=== PATIENT | female | born 1945 | race Caucasian/White ===

== ENCOUNTER → 2020-01-02 13:00 | Outpatient (CLI) | payer MEDICARE, SELFPAY ==
--- NOTE | ~2020-01-02 | XR_ITS ---
EXAMINATION: XR chest 2V EXAM DATE: 01/02/2020 13:23 INDICATION: Chronic interstitial lung disease. TECHNIQUE: Frontal and lateral projections of the chest obtained and reviewed. Comparison is made to prior examination from 11/23/2010. FINDINGS: Mildly prominent reticulation peripherally, probably chronic interstitial lung disease. No confluent consolidation. There are no pleural effusions. The cardiomediastinal silhouette is within normal limits. There is no pneumothorax suspected. Moderate lumbar scoliosis. IMPRESSION: 1. No acute cardiopulmonary findings. 2. Probable mild pulmonary fibrosis. 3. Lumbar scoliosis. Reviewed, dictated and finalized at location A.
== END ==
PROVIDERS: PCP Family Medicine Adolescent Medicine; Visit Provider Family Medicine Adolescent Medicine
DX: J84.9 Interstitial pulmonary disease, unspecified (principal); M41.9 Scoliosis, unspecified
CPT/HCPCS: 71046

== ENCOUNTER 2020-11-27 11:40 | Outpatient (NON) | payer MEDICARE, SELFPAY ==
[2020-11-28 00:37] LABS: SARS-CoV-2 RNA PCR Negative
== END 2020-11-27 11:41 ==
LOC: ANHCOVIDDT 11:41
PROVIDERS: PCP Family Medicine Adolescent Medicine; Visit Provider Family Medicine Adolescent Medicine
DX: Z20.822 Contact with and (suspected) exposure to COVID-19 (principal); R50.9 Fever, unspecified; M79.10 Myalgia, unspecified site
CPT/HCPCS: C9803; U0003; U0005

== ENCOUNTER 2021-08-14 11:20 | Outpatient (CLI) | payer MEDICARE, SELFPAY ==
[2021-08-14 11:44] LABS: Basophils Absolute Auto 0.1 K/mm3 (0.0-0.1); Eosinophils Absolute Auto 0.4 K/mm3 (0-0.3); Eosinophils Percent Auto 4.6 % (0-4.4); Hematocrit 34.6 % (37.0-47.0); Hemoglobin 10.3 g/dL (12.0-15.0); Immature Granulocyte Absolute 0.04 K/mm3 (0.00-0.031); Immature Granulocyte Percent A 0.4 % (0-0.5); Immature Reticulocyte Fraction 11.3 % (3.0-15.9); Lymphocytes Absolute Auto 1.19 K/mm3 (0.9-3.2); Lymphocytes Percent Auto 13.2 % (18.3-44.2); Mean Corpuscular HGB Conc 29.8 g/dl (32-36); Mean Corpuscular Hemoglobin 27.5 pg (26-34); Mean Corpuscular Volume 92.3 fl (80-100); Mean Platelet Volume 9.4 fl (7.4-10.4); Monocytes Absolute Auto 0.9 K/mm3 (0.1-0.6); Monocytes Percent Auto 9.8 % (2.6-8.5); Neutrophils Absolute Auto 6.4 K/mm3 (1.3-6.7); Platelet Count Result 312 k/mm3 (150-375); Red Blood Count 3.75 M/mm3 (4.2-5.4); Red Cell Distribution Width 15.3 % (11.5-14.5); Reticulocyte Hemoglobin Conten 35.4 pg (28.2-35.7); Reticulocyte Percent 2.97 % (0.7-4.3); Reticulocytes Absolute 0.11 B/L (32.2-175.7)
[2021-08-14 11:51] LABS: Hypochromasia 1+ (NORMAL); Platelet Estimate Adequate (Adequate)
[2021-08-14 12:28] LABS: Alanine Aminotransferase 12 U/L (4-35); Albumin Level 4.1 g/dL (3.5-5.1); Alkaline Phosphatase 75 U/L (38-126); Anion Gap 9 mmol/L (8-16); Aspartate Amino Transferase 25 U/L (14-36); Bilirubin,Total 0.2 mg/dL (0.2-1.3); Blood Urea Nitrogen 26 mg/dL (7-17); Calcium 9.6 mg/dL (8.4-10.2); Carbon Dioxide 28 mmol/L (22-30); Chloride 105 mmol/L (98-107); Estimated Glomerular Filt Rate > 60; Glucose 98 mg/dL (65-110); Potassium 4.6 mmol/L (3.4-5.0); Sodium 142 mmol/L (137-145)
[2021-08-14 13:47] LABS: Folic Acid > 20.0 ng/mL (2.76->20)
[2021-08-14 14:04] LABS: Iron 119 ug/dL (37-170); Percent Iron Saturation 33 % (20-50)
== END 2021-08-14 11:21 | disposition home or self-care (01) ==
LOC: ANHLAB 11:25
PROVIDERS: PCP Family Medicine Adolescent Medicine; Visit Provider Internal Medicine Hematology & Oncology
DX: D64.9 Anemia, unspecified (principal)
CPT/HCPCS: 36415; 80053; 82607; 82728; 82746; 83540; 83550; 85025; 85046

== ENCOUNTER 2021-08-19 09:44 | Outpatient (CLI) | payer MEDICARE, SELFPAY ==
[2021-08-19 12:37] LABS: IFOB Positive Control Positive; Immunochemical Fecal Occult Bl Positive (N)
== END 2021-08-19 09:45 | disposition home or self-care (01) ==
LOC: ANHLAB 09:46
PROVIDERS: PCP Family Medicine Adolescent Medicine; Visit Provider Internal Medicine Hematology & Oncology
DX: D64.9 Anemia, unspecified (principal)
CPT/HCPCS: 82274

== ENCOUNTER 2021-10-28 12:36 | Outpatient (CLI) | payer MEDICARE, SELFPAY ==
[2021-10-28 12:57] LABS: Hematocrit 37.2 % (37.0-47.0); Hemoglobin 11.2 g/dL (12.0-15.0); Mean Corpuscular HGB Conc 30.1 g/dl (32-36); Mean Corpuscular Hemoglobin 28.9 pg (26-34); Mean Corpuscular Volume 96.1 fl (80-100); Mean Platelet Volume 8.9 fl (7.4-10.4); Platelet Count Result 318 k/mm3 (150-375); Red Blood Count 3.87 M/mm3 (4.2-5.4); Red Cell Distribution Width 14.6 % (11.5-14.5); White Blood Count 8.5 K/mm3 (4.5-10.0)
[2021-10-28 15:09] LABS: Iron 110 ug/dL (37-170)
[2021-10-28 15:18] LABS: Percent Iron Saturation 30 % (20-50)
[2021-10-28 15:44] LABS: Ferritin 9.48 ng/mL (11.1-264)
[2021-10-28 16:21] LABS: Folic Acid > 20.0 ng/mL (2.76->20); Vitamin B12 > 1000.0 pg/mL (239-931)
== END 2021-10-28 12:37 | disposition home or self-care (01) ==
PROVIDERS: PCP Family Medicine Adolescent Medicine; Visit Provider Internal Medicine Hematology & Oncology
DX: D64.9 Anemia, unspecified (principal)
CPT/HCPCS: 36415; 82607; 82728; 82746; 83540; 83550; 85027

== ENCOUNTER 2022-02-10 00:07 | Day surgery (SDC) | payer MEDICARE, SELFPAY ==
[2022-01-27 10:23] VITALS: BMI 22.8
[2022-02-10 06:55] VITALS: BP 178/86; PULSE 110; RESP 20; TEMP 36.9; O2SAT 98
[2022-02-10] MEDS: LACTATED RINGERS 1,000 ML 150 ML IV CONT (07:16)
[2022-02-10 07:17] LABS: Glucose Point of Care 134 mg/dl (65-105)
--- NOTE | 2022-02-10 07:18 | WPDANESEPPF ---
Anes - Initial Pre Proc Eval Procedure: Operation Date: 02/10/22 08:00 Proposed Procedures p Esophagogastroduodenoscopy With Capsule Deployment - Ja Alcala MD s [facility] Capsule Endoscopy - Ja Alcala MD Date/Time: 02/10/22 07:18 Surgeon: Ja Alcala MD Pre Op Diagnosis: BRIDGER Patient Data Age: 77 Gender: F Height: 1.55 m Weight: 55.1 kg Last Vital Signs Temp 36.9 C 02/10/22 06:55 Pulse 110 H 02/10/22 06:55 Resp 20 02/10/22 06:55 BP 178/86 H 02/10/22 06:55 Pulse Ox 98 02/10/22 06:55 Allergies Allergy/AdvReac Type Severity Reaction Status Date / Time No Known Allergies Allergy Verified 02/10/22 06:54 Home Medications Medication Instructions Recorded Confirmed Type Vitamin C 1 tablet PO DAILY 11/15/21 01/27/22 History aspirin 81 mg PO DAILY 11/15/21 01/27/22 History benazepril 20 mg PO DAILY 11/15/21 01/27/22 History calcium 600 mg PO DAILY 11/15/21 01/27/22 History calcium polycarbophil [Fiber-Lax] 1,250 mg PO DAILY PRN 11/15/21 01/27/22 History ferrous gluconate 324 mg PO BID 11/15/21 01/27/22 History magnesium 250 mg PO DAILY 11/15/21 01/27/22 History metformin 500 mg PO BID 11/15/21 01/27/22 History multivitamin 1 cap PO DAILY 11/15/21 01/27/22 History omega-3 fatty acids [Fish Oil] 500 mg PO DAILY 11/15/21 01/27/22 History potassium 99 mg PO DAILY 11/15/21 01/27/22 History vitamin S25-zioeo acid 1 cap PO EVERY OTHER DAY 11/15/21 01/27/22 History pantoprazole 40 mg tablet,delayed 40 mg PO QAM #90 tablet 11/27/21 01/27/22 Rx release amlodipine 5 mg tablet 5 mg PO DAILY 12/18/21 01/27/22 History digoxin 125 mcg (0.125 mg) tablet 125 mcg PO DAILY #90 tablet 12/18/21 01/27/22 Rx blood sugar diagnostic #100 ea 01/08/22 Rx meloxicam 15 mg tablet 15 mg PO DAILY #90 tablet 01/08/22 01/27/22 Rx fluticasone propionate [Allergy 2 spray INTRANASAL DAILY PRN 01/27/22 01/27/22 History Relief (fluticasone)] atorvastatin 40 mg tablet 40 mg PO DAILY #90 tablet 02/04/22 Rx Laboratory Tests 02/10/22 07:06 POC Capillary Glucose 134 mg/dl H mg/dl (65-105) Patient hx anesthesia problems: none Family hx anesthesia problems: none Results Review: All pre-operative results and documents have been reviewed as part of the pre-operative evaluation. [facility] Past Medical History Medical History Diabetes GERD (gastroesophageal reflux disease) HLD (hyperlipidemia) HTN (hypertension) Osteoarthritis Social History Social History Smoking status: Never smoker Alcohol intake: never Substance use: never Living arrangements: alone Spiritual care concerns: No Anes - Eval Final PreProcedure Day of Procedure 02/10/22 07:18 Patient weight: normal Heart: regular rate and rhythm Lungs: clear to auscultation Airway: Mallampati scale class II Neurological: alert and oriented Last oral intake: >/= 8 hours ASA classification: III Emergent: no Anesthetic plan: proceed Anesthesia type and monitoring: general GIVS and standard monitoring Results Review: All pre-operative results and documents have been reviewed as part of the pre-operative evaluation. Informed Consent: The patient's anesthetic plan and its attendant risks and benefits were discussed with the patient/family/POA. Questions were solicited and answers provided to the satisfaction of the patient/family/POA.
--- NOTE | 2022-02-10 07:49 | PM.HPGS ---
History of Present Illness History of Present Illness Consent: Risks, benefits, and alternatives have been discussed and questions answered. Patient agrees to proceed with procedure. Chief complaint: BRIDGER Narrative: Evelyn Hatfield is a 77 year old female with bridger on iron, using protonix. Denies overt gib. Had colonoscopy 2019. Review of Systems Constitutional: Constitutional: Denies headache(s) and Denies weakness Eyes: Eyes: Denies blurry vision ENT: Reports Normal hearing present, Denies headache(s) and Denies neck pain Cardiovascular: Cardiovascular: Denies chest pain and Denies dyspnea Respiratory: Respiratory: Denies dyspnea Gastrointestinal: Gastrointestinal: Reports no additional gastrointestinal complaints Genitourinary: Genitourinary: Denies dysuria Musculoskeletal: Musculoskeletal: Denies neck pain Integumentary/Breasts: Skin/Breast: Denies dry skin Neurologic: Reports Normal hearing present, Denies headache(s) and Denies weakness Psychiatric: Psychiatric: Denies anxiety Endocrine: Endocrine: Denies change in body appearance Hematologic/Lymphatic: Hematologic/Lymphatic: Denies easy bleeding Allergic/Immunologic: Allergic/Immunologic: Denies urticaria PMF Past Medical History Medical History Diabetes GERD (gastroesophageal reflux disease) HLD (hyperlipidemia) HTN (hypertension) Osteoarthritis Social History Social History Smoking status: Never smoker Alcohol intake: never Substance use: never Living arrangements: alone Spiritual care concerns: No Meds Home Medications and Allergies Home Medications Medication Instructions Recorded Confirmed Type Vitamin C 1 tablet PO DAILY 11/15/21 01/27/22 History aspirin 81 mg PO DAILY 11/15/21 01/27/22 History benazepril 20 mg PO DAILY 11/15/21 01/27/22 History calcium 600 mg PO DAILY 11/15/21 01/27/22 History calcium polycarbophil [Fiber-Lax] 1,250 mg PO DAILY PRN 11/15/21 01/27/22 History ferrous gluconate 324 mg PO BID 11/15/21 01/27/22 History magnesium 250 mg PO DAILY 11/15/21 01/27/22 History metformin 500 mg PO BID 11/15/21 01/27/22 History multivitamin 1 cap PO DAILY 11/15/21 01/27/22 History omega-3 fatty acids [Fish Oil] 500 mg PO DAILY 11/15/21 01/27/22 History potassium 99 mg PO DAILY 11/15/21 01/27/22 History vitamin H29-clfgq acid 1 cap PO EVERY OTHER DAY 11/15/21 01/27/22 History pantoprazole 40 mg tablet,delayed 40 mg PO QAM #90 tablet 11/27/21 01/27/22 Rx release amlodipine 5 mg tablet 5 mg PO DAILY 12/18/21 01/27/22 History digoxin 125 mcg (0.125 mg) tablet 125 mcg PO DAILY #90 tablet 12/18/21 01/27/22 Rx blood sugar diagnostic #100 ea 01/08/22 Rx meloxicam 15 mg tablet 15 mg PO DAILY #90 tablet 01/08/22 01/27/22 Rx fluticasone propionate [Allergy 2 spray INTRANASAL DAILY PRN 01/27/22 01/27/22 History Relief (fluticasone)] atorvastatin 40 mg tablet 40 mg PO DAILY #90 tablet 02/04/22 Rx Allergies Allergy/AdvReac Type Severity Reaction Status Date / Time No Known Allergies Allergy Verified 02/10/22 06:54 Vital Signs Vital Signs - 24 hr 02/10/22 06:55 Temperature 98.4 F Pulse Rate 110 H Respiratory Rate 20 Blood Pressure 178/86 H Pulse Oximetry 98 Exam Const: General: comfortable and no acute distress HENMT: General nose exam: Normal nares present Eyes: General: appearance normal, both eyes and all related structures Neck: Neck: no JVD Resp: Auscultation: clear to auscultation bilaterally Cardio: Rate: regular rate Rhythm: regular rhythm GI: Inspection: non-distended GI Palp: Yes Soft to palpation Skin: General skin exam: normal color Neuro: General: gait normal Speech: normal speech Extrem: General: normal to inspection Psych: Mental Status: mental status grossly normal Assessment and Plan Assessment and plan (1) BRIDGER (iron deficiency anemia): Code(s)
[2022-02-10 08:06] VITALS: BP 91/46; PULSE 87; RESP 22; O2SAT 98
[2022-02-10 08:16] VITALS: BP 105/60; PULSE 83; RESP 14; O2SAT 97
[2022-02-10 08:26] VITALS: BP 142/72; PULSE 83; RESP 14; O2SAT 100
--- NOTE | 2022-02-10 15:05 | SUR.OPER ---
Patient returned to the GI Lab at 1500 for recorder box removal. Patient voiced no complaints. States they have understanding of instructions. Patient left ambulatory.
== END 2022-02-10 08:57 | disposition home or self-care (01) ==
PROVIDERS: PCP Family Medicine Adolescent Medicine; Visit Provider Internal Medicine Gastroenterology
PROC: 0DJ08ZZ Inspection of Upper Intestinal Tract, Via Natural or Artificial Opening Endoscopic (ICD-10-PCS; CPT 43235; principal; 2022-02-10 08:00)
PROC: 0DJ07ZZ Inspection of Upper Intestinal Tract, Via Natural or Artificial Opening (ICD-10-PCS; CPT 91110; 2022-02-10 08:00)
DX: D50.9 Iron deficiency anemia, unspecified (principal); K44.9 Diaphragmatic hernia without obstruction or gangrene; K22.2 Esophageal obstruction; K29.50 Unspecified chronic gastritis without bleeding; K21.9 Gastro-esophageal reflux disease without esophagitis; I10 Essential (primary) hypertension; E78.5 Hyperlipidemia, unspecified; E11.9 Type 2 diabetes mellitus without complications; Z79.84 Long term (current) use of oral hypoglycemic drugs
CPT/HCPCS: 43239; 43249; 82948; 88305; C1726; J2704; J7120

== ENCOUNTER 2022-02-13 13:29 | Outpatient (CLI) | payer MEDICARE, SELFPAY ==
--- NOTE | ~2022-02-13 | CT_ITS ---
EXAMINATION: CT abdomen pelvis wo/w con DATE: 02/13/2022 14:15 INDICATION: Gross hematuria TECHNIQUE: Computed tomography (CT) of the abdomen and pelvis was performed without intravenous contr ast. CT of the abdomen and pelvis was then performed with a total of 130 mL Omnipaque 350 intravenous contrast using a double-bolus technique for simultaneous opacification of the renal parenchyma and r enal collecting system. The dose-length product (DLP) was 582.02 mGy-cm. Automated exposure control a nd iterative reconstruction technique were employed. COMPARISON: 10/28/2014 FINDINGS: There are subpleural reticular and groundglass opacities of the visualized lung bases with slight interval worsening since the comparison examination. The heart size is normal. There is a smal l sliding hiatal hernia. The gallbladder is surgically absent. There is mild enlargement of the commo n bile duct and central intrahepatic ducts which is likely due to post cholecystectomy state. The sebas er, spleen, pancreas, and adrenal glands are normal. There is an 11 mm nonobstructing stone in a lowe r pole calyx of the right kidney. Additional stones measuring 11 mm and 9 mm are present in the lower pole of the right kidney. There is a 4 mm nonobstructing stone of the left kidney. There are no ston es in the ureters or bladder. There is no hydronephrosis or hydroureter. An extrarenal pelvis is note d on the right. Hypoattenuating lesions in the kidneys, measuring up to 5 mm on the left, are too sma ll to characterize but likely represent cysts. There is a linear filling defect in the right renal pe lvis measuring approximately 10 mm x 3 mm. Small diverticula are noted in the right posterolateral bl adder wall. No pathologically enlarged abdominal or pelvic lymph nodes are identified. There is calci fied atherosclerosis of the aorta and many of the other arteries. There is no free intraperitoneal ga s or evidence of bowel obstruction. There are surgical clips in the right groin region. A metallic de nsity of unclear etiology projects in the small bowel in the right pelvis. On the charge entry image, the ob ject has a configuration suggestive of an earring. There is severe lumbar spondylosis. IMPRESSION: 1. Bilateral nonobstructing nephrolithiasis. A linear filling defect in the right renal pelvis is see n which may reflect a small thrombus. 2. Metallic density in the small bowel of the right lower quadrant of unclear etiology. Object has an appearance suggestive of an earring on the charge entry image. Clinically correlate for any history of acci dental ingestion. Reviewed, dictated and finalized at location F. IMPRESSION: 1. Bilateral nonobstructing nephrolithiasis. A linear filling defect in the rig ht renal pelvis is seen which may reflect a small thrombus. 2. Metallic density in the small bowel of the right lower quadrant of unclear e tiology. Object has an appearance suggestive of an earring on the charge entry image. Clinically correlate for any history of accidental ingestion.
--- NOTE | ~2022-02-13 | XR_ITS ---
EXAMINATION: XR abdomen/kub 1V INDICATION: Gross hematuria TECHNIQUE: Supine views of the abdomen were obtained on 2 radiographs. COMPARISON: CT from today; KUB dated 01/14/2019 FINDINGS: Stones measuring up to 11 mm project in the lower pole of the right kidney. Cholecystectomy clips are noted. A 4 mm calcification projecting in the expected location of the left kidney upper p ole likely corresponds to the stone seen on CT. There is severe lumbar spondylosis. A metallic densit y is noted in the right pelvis which has an appearance suggestive of a possible ingested foreign body on CT. IMPRESSION: 1. Right nephrolithiasis and likely 4 mm stone of the left kidney as identified on CT. 2. Possible ingested foreign body. Correlate for appropriate clinical history. Reviewed, dictated and finalized at location F.
[2022-02-13 13:58] LABS: Estimated Glomerular Filt Rate > 60
== END 2022-02-13 13:30 | disposition home or self-care (01) ==
LOC: ANHIMG 13:33
PROVIDERS: PCP Family Medicine Adolescent Medicine; Visit Provider Nurse Practitioner Adult Health
DX: R31.0 Gross hematuria (principal); N20.0 Calculus of kidney
CPT/HCPCS: 74018; 74178; Q9967

== ENCOUNTER 2022-06-13 09:27 | Outpatient (CLI) | payer MEDICARE, SELFPAY ==
--- NOTE | ~2022-06-13 | CT_ITS ---
EXAMINATION: CT abdomen pelvis wo/w con DATE: 06/13/2022 10:26 INDICATION: Breast hematuria TECHNIQUE: Computed tomography (CT) of the abdomen and pelvis was performed without and with 130 cc O mnipaque 350 intravenous contrast. The dose-length product was 579.05 mGy-cm. Automated exposure cont rol and iterative reconstruction technique were employed. COMPARISON: CT dated 02/14/2020. FINDINGS: There is subpleural reticulation. The width interlobular septal thickening and honeycombing in the lower lobes. Findings compatible with chronic interstitial fibrosis. Cardiomegaly. There are bilateral renal stones, largest in the lower pole of the right kidney measuring 11 mm.. There is mild dilation of the right renal pelvis with normal caliber ureter. No ureteral stones or hydronephrosis. Bladder is unremarkable. The liver, spleen, pancreas, adrenal glands are unremarkable. There is a metallic device in the pelvi s, of uncertain significance nonobstructive bowel gas pattern. No free air or free fluid. Small hiata l hernia. There is a metallic device of the L4 and L5 posterior spinous processes. There is severe lo wer thoracic and lumbar spondylosis.. IMPRESSION: 1. Nonobstructing bilateral nephrolithiasis. Reviewed, dictated and finalized at location B.
--- NOTE | ~2022-06-13 | XR_ITS ---
XR abdomen/kub 1V 06/13/2022 10:00 Indication: Gross hematuria Procedure: KUB Comparison: CT dated 06/13/2022 Findings: There are bilateral renal stones. There are cholecystectomy clips. Severe lower thoracic an d lumbar spondylosis with scoliosis. Nonobstructive bowel gas pattern. There is a radiopaque device i n the right pelvis, possibly surgical. Impression: 1: Bilateral nephrolithiasis. Reviewed, dictated and finalized at location B. Impression: 1: Bilateral nephrolithiasis.
[2022-06-13 10:03] LABS: Estimated Glomerular Filt Rate > 60
== END 2022-06-13 09:28 | disposition home or self-care (01) ==
LOC: ANHIMG 09:38
PROVIDERS: PCP Family Medicine Adolescent Medicine; Visit Provider Nurse Practitioner Adult Health
DX: R31.0 Gross hematuria (principal); N20.0 Calculus of kidney
CPT/HCPCS: 74018; 74178; Q9967

== ENCOUNTER 2022-06-16 22:45 | Emergency (ER) | payer MEDICARE, SELFPAY ==
[2022-06-16 22:46] VITALS: BP 184/82; PULSE 114; RESP 16; TEMP 36.5; O2SAT 97
[2022-06-16 23:04] VITALS: BP 161/86; PULSE 113; RESP 20; O2SAT 97
[2022-06-16 23:19] VITALS: BP 161/86; PULSE 115; RESP 28; O2SAT 98
[2022-06-16 23:26] LABS: Basophils Absolute Auto 0.1 K/mm3 (0.0-0.1); Basophils Percent Auto 1.5 % (0.2-1.2); Eosinophils Absolute Auto 0.4 K/mm3 (0-0.3); Eosinophils Percent Auto 5.3 % (0-4.4); Hematocrit 33.2 % (37.0-47.0); Hemoglobin 10.6 g/dL (12.0-15.0); Immature Granulocyte Absolute 0.03 K/mm3 (0.00-0.031); Immature Granulocyte Percent A 0.4 % (0-0.5); Lymphocytes Absolute Auto 1.39 K/mm3 (0.9-3.2); Lymphocytes Percent Auto 20.6 % (18.3-44.2); Mean Corpuscular HGB Conc 31.9 g/dl (32-36); Mean Corpuscular Hemoglobin 30.5 pg (26-34); Mean Corpuscular Volume 95.4 fl (80-100); Mean Platelet Volume 8.9 fl (7.4-10.4); Monocytes Absolute Auto 0.8 K/mm3 (0.1-0.6); Monocytes Percent Auto 11.3 % (2.6-8.5); Neutrophils Absolute Auto 4.1 K/mm3 (1.3-6.7); Neutrophils Percent Auto 60.9 % (45.5-73.1); Platelet Count Result 347 k/mm3 (150-375); Red Blood Count 3.48 M/mm3 (4.2-5.4); Red Cell Distribution Width 14.6 % (11.5-14.5); White Blood Count 6.7 K/mm3 (4.5-10.0)
[2022-06-16 23:37] LABS: Appearance Urine Slightly Cloudy (Clear); Bilirubin Urine Negative (Negative); Blood Urine 1+ (Negative); Color Urine Yellow (Yellow); Glucose Urine UA Negative (Negative); Ketones Urine Negative (Negative); Leukocyte Esterase Ur 3+ LEU/UL (Negative); Nitrate Urine Negative (Negative); Protein Urine Trace mg/dL (Negative); Specific Grav Ur 1.015 (1.001-1.035); Urobilinogen Urine 0.2 mg/dL (<2.0)
--- NOTE | 2022-06-16 23:38 | ED.FEMALEGU ---
HPI - Female Genitourinary General Chief complaint: Vaginal Bleeding Stated complaint: vaginal bleeding Time Seen by Provider: 06/16/22 22:57 History of Present Illness HPI Narrative: Pt is a 77 y/o female, PMHx of microscopic hematuria and nephrolithiasis, presents to ED via POV with CC she began having vaginal versus urethral bleeding today, noting she had enough bleeding she required a peripad. She denies associated fevers, chills or flank pain. She does have vaginal burning that is ongoing for several months and urinary burning that began more recently, 3-5 days ago. She saw her urologist 06/13/2022 for routine follow up and an outpatient renal protocol CT was completed for monitoring of chronic nephrolithiasis, one stone measuring 11 mm per patient. She notes bleeding has since slowed. She denies any additional associated symptoms or modifying factors. Related Data Home Medications Medication Instructions Recorded Confirmed Vitamin C 1 tablet PO DAILY 11/15/21 04/09/22 aspirin 81 mg tablet 81 mg PO DAILY 11/15/21 04/09/22 calcium 600 mg capsule 600 mg PO DAILY 11/15/21 04/09/22 ferrous gluconate 324 mg (37.5 mg 324 mg PO BID 11/15/21 04/09/22 iron) tablet magnesium 250 mg tablet 250 mg PO DAILY 11/15/21 04/09/22 multivitamin 1 cap PO DAILY 11/15/21 04/09/22 omega-3 fatty acids 500 mg PO DAILY 11/15/21 04/09/22 potassium 99 mg tablet 99 mg PO DAILY 11/15/21 04/09/22 vitamin K00-bptln acid 1 cap PO EVERY OTHER DAY 11/15/21 04/09/22 fluticasone propionate 50 2 spray intranasal DAILY PRN 01/27/22 04/09/22 mcg/actuation nasal Allergy Symptoms spray,suspension (Allergy Relief (fluticasone)) Allergies Allergy/AdvReac Type Severity Reaction Status Date / Time No Known Allergies Allergy Verified 06/16/22 23:02 Review of Systems Genitourinary: Comments: refer to [facility] Past Medical History Medical History Diabetes GERD (gastroesophageal reflux disease) History of bladder cancer (~03/2018) non-invasive low-grade papillary urothelial carcinoma HLD (hyperlipidemia) HTN (hypertension) Ureteral calculus (~03/2018) Surgical History Surgical History History of cholecystectomy (2010) Open History of lumbar surgery 2005, decompression History of vein stripping Family History Family History Father Acute myocardial infarction Cerebrovascular accident Mother Alzheimer's dementia Social History Social History Smoking status: Never smoker Second hand tobacco smoke exposure: No Alcohol intake: never Substance use: never Substance use type: does not use Gender identity (if verbalized by the patient): Female Sexual Orientation (if Verbalized by the Patient): Straight or Heterosexual Spiritual care concerns: No Agree to blood products: Yes Exam Const: General: healthy appearing, no acute distress and alert Nutritional Appearance: well nourished Orientation/consciousness: patient oriented x3 Limitations: no limitations HENMT: Head: normal to inspection Ears: external ears normal, TM's normal bilaterally and EAC's normal Face and sinus: normal facial exam Mouth: Yes Normal oral and palatal mucosa present, Yes lip normal and Yes moist mucous membranes Teeth and gingiva: dentition normal Throat: posterior oropharynx normal Eyes: Conjunctivae: conjunctivae normal Pupils: Equal, round and reactive pupils present Direct Ophthalmoscopy: no photophobia Neck: Neck: normal visual inspection, no lymphadenopathy and no meningeal signs Resp: Effort & Inspection: normal respiratory effort Auscultation: clear to auscultation bilaterally Cardio: Rate: regular rate Rhythm: regular rhythm : General: Yes bladder normal to palpation External Female Exam: normal ex
[2022-06-16 23:39] LABS: Alanine Aminotransferase 13 U/L (6-35); Albumin Level 3.8 g/dL (3.5-5.1); Alkaline Phosphatase 81 U/L (38-126); Anion Gap 11 mmol/L (8-16); Aspartate Amino Transferase 28 U/L (14-36); Bilirubin,Total 0.2 mg/dL (0.2-1.3); Blood Urea Nitrogen 27 mg/dL (7-17); Calcium 9.1 mg/dL (8.4-10.2); Carbon Dioxide 23 mmol/L (22-30); Chloride 98 mmol/L (98-107); Estimated CRCL calculation 39 ml/min; Estimated Glomerular Filt Rate > 60; Glucose 144 mg/dL (65-110); INR 0.9; Potassium 4.1 mmol/L (3.4-5.0); Prothrombin Time 11.8 Seconds (11.1-14.7); Sodium 132 mmol/L (137-145)
[2022-06-16 23:40] LABS: Partial Thromboplastin Time 23.2 SECONDS (22.3-36.8)
[2022-06-16 23:43] LABS: Bacteria Urine 3+ /hpf; Mucus Urine Rare /lpf; WBC Clumps Urine Present /HPF; WBC Urine >75 /hpf
[2022-06-16 23:44] LABS: Add Urine Microscopic? YES
[2022-06-17 00:36] VITALS: BP 160/89; PULSE 93; RESP 19; O2SAT 97
[2022-06-17] MEDS: SODIUM CHLORIDE 0.9% IV 1,000 ML 999 ML IV CONT (00:38)
[2022-06-17 01:16] VITALS: BP 159/73; PULSE 92; RESP 19; O2SAT 97
== END 2022-06-17 01:48 | disposition home or self-care (01) ==
PROVIDERS: Emergency Provider Nurse Practitioner Family; PCP Family Medicine Adolescent Medicine
DX: N30.01 Acute cystitis with hematuria (principal); I10 Essential (primary) hypertension; E11.9 Type 2 diabetes mellitus without complications; E78.5 Hyperlipidemia, unspecified; K21.9 Gastro-esophageal reflux disease without esophagitis; Z85.51 Personal history of malignant neoplasm of bladder; Z87.442 Personal history of urinary calculi; Z79.82 Long term (current) use of aspirin; Z79.84 Long term (current) use of oral hypoglycemic drugs
CPT/HCPCS: 36415; 51701; 80053; 81001; 85025; 85610; 85730; 86850; 86900; 86901; 87077; 87086; 87186; 96365; 99284; J0696; J7030

== ENCOUNTER 2022-07-09 18:50 | Emergency (ER) | payer MEDICARE, SELFPAY ==
[2022-07-09 19:31] VITALS: BP 161/80; PULSE 111; RESP 16; TEMP 36.9; O2SAT 97
[2022-07-10] VITALS (10 sets, daily range): BP systolic 145–154; BP diastolic 68–88; PULSE 102–105; RESP 20; O2SAT 97–100
[2022-07-10] MEDS: ONDANSETRON INJ 4 MG/2 ML VIAL IV PUSH (02:21)
[2022-07-10] MEDS: SODIUM CHLORIDE 0.9% IV 1,000 ML 999 ML IV CONT (02:21)
[2022-07-10 02:29] LABS: Basophils Absolute Auto 0.1 K/mm3 (0.0-0.1); Basophils Percent Auto 1.5 % (0.2-1.2); Eosinophils Absolute Auto 0.2 K/mm3 (0-0.3); Immature Granulocyte Absolute 0.09 K/mm3 (0.00-0.031); Immature Granulocyte Percent A 1.1 % (0-0.5); Lymphocytes Absolute Auto 1.52 K/mm3 (0.9-3.2); Mean Corpuscular HGB Conc 31.6 g/dl (32-36); Mean Corpuscular Hemoglobin 30.3 pg (26-34); Mean Platelet Volume 8.6 fl (7.4-10.4); Monocytes Absolute Auto 0.8 K/mm3 (0.1-0.6); Monocytes Percent Auto 10.1 % (2.6-8.5); Neutrophils Absolute Auto 5.2 K/mm3 (1.3-6.7); Neutrophils Percent Auto 65.3 % (45.5-73.1); Platelet Count Result 322 k/mm3 (150-375); Red Blood Count 3.96 M/mm3 (4.2-5.4); Red Cell Distribution Width 13.5 % (11.5-14.5)
[2022-07-10 02:32] LABS: Appearance Urine Slightly Cloudy (Clear); Bilirubin Urine 1+ (Negative); Color Urine Yellow (Yellow); Glucose Urine UA Negative (Negative); Ketones Urine 1+ mg/dL (Negative); Leukocyte Esterase Ur 1+ LEU/UL (Negative); Nitrate Urine Negative (Negative); Protein Urine 2+ mg/dL (Negative); Specific Grav Ur >= 1.030 (1.001-1.035); Urobilinogen Urine 0.2 mg/dL (<2.0); pH Urine 5.5 (5.0-9.0)
[2022-07-10 02:36] LABS: Mucus Urine Rare /lpf; WBC Urine >75 /hpf
[2022-07-10 02:37] LABS: Add Urine Microscopic? YES; Blood Urine Trace-Intact (Negative)
[2022-07-10 02:39] LABS: Alanine Aminotransferase 17 U/L (6-35); Albumin Level 4.2 g/dL (3.5-5.1); Alkaline Phosphatase 83 U/L (38-126); Anion Gap 16 mmol/L (8-16); Aspartate Amino Transferase 33 U/L (14-36); Bilirubin,Total 0.2 mg/dL (0.2-1.3); Blood Urea Nitrogen 11 mg/dL (7-17); Calcium 9.8 mg/dL (8.4-10.2); Carbon Dioxide 19 mmol/L (22-30); Chloride 93 mmol/L (98-107); Estimated Glomerular Filt Rate 60; Glucose 140 mg/dL (65-110); Lipase 68 U/L (23-300); Magnesium 1.4 mg/dL (1.6-2.3); Potassium 4.2 mmol/L (3.4-5.0); Sodium 128 mmol/L (137-145)
--- NOTE | 2022-07-10 02:46 | ED.GENADULT ---
HPI - General Adult General Chief complaint: Urogenital-Female Stated complaint: UTI , on 3rd round of abx Time Seen by Provider: 07/10/22 01:49 History of Present Illness HPI narrative: Patient 77-year-old male who presents the emergency department with chief complaint of UTI and generalized weakness. The patient reports that she was diagnosed with a UTI was initially started on Keflex and then was changed to Macrobid by her urologist. Patient reports that she was told on Thursday that she had a resistant infection and they switched her to Levaquin. The patient reported that she started having nausea and vomiting and reports that she vomited up the first dose of Levaquin. Patient states today she continued to have multiple bouts of vomiting and has not really been keeping much down. The patient states that she feels as though she is getting dehydrated patient denies fever patient reports no abdominal pain or flank pain. Related Data Home Medications Medication Instructions Recorded Confirmed Vitamin C 1 tablet PO DAILY 11/15/21 06/27/22 aspirin 81 mg tablet 81 mg PO DAILY 11/15/21 06/27/22 calcium 600 mg capsule 600 mg PO DAILY 11/15/21 06/27/22 ferrous gluconate 324 mg (37.5 mg 324 mg PO BID 11/15/21 06/27/22 iron) tablet magnesium 250 mg tablet 250 mg PO DAILY 11/15/21 06/27/22 multivitamin 1 cap PO DAILY 11/15/21 06/27/22 omega-3 fatty acids 500 mg PO DAILY 11/15/21 06/27/22 potassium 99 mg tablet 99 mg PO DAILY 11/15/21 06/27/22 vitamin W36-blitb acid 1 cap PO EVERY OTHER DAY 11/15/21 06/27/22 fluticasone propionate 50 2 spray intranasal DAILY PRN 01/27/22 06/27/22 mcg/actuation nasal Allergy Symptoms spray,suspension (Allergy Relief (fluticasone)) Allergies Allergy/AdvReac Type Severity Reaction Status Date / Time No Known Allergies Allergy Verified 06/27/22 09:41 Review of Systems Review of Systems: A 10 system review of systems was completed on the patient and is negative except for what is stated in the HPI. Nursing and ancillary documentation was reviewed. [facility] Past Medical History Medical History Diabetes GERD (gastroesophageal reflux disease) History of bladder cancer (~03/2018) non-invasive low-grade papillary urothelial carcinoma HLD (hyperlipidemia) HTN (hypertension) Ureteral calculus (~03/2018) Surgical History Surgical History History of cholecystectomy (2010) Open History of lumbar surgery 2006, decompression History of vein stripping Family History Family History Father Acute myocardial infarction Cerebrovascular accident Mother Alzheimer's dementia Social History Social History Smoking status: Never smoker Second hand tobacco smoke exposure: No Alcohol intake: never Substance use: never Substance use type: does not use Gender identity (if verbalized by the patient): Female Sexual Orientation (if Verbalized by the Patient): Straight or Heterosexual Spiritual care concerns: No Agree to blood products: Yes Exam Narrative: GENERAL: Well-appearing, well-nourished, and in no acute distress. HEAD: Normocephalic, atraumatic. EYES: PERRLA and EOMI. ENT: Nares clear, no rhinorrhea or epistaxis. Mucous membranes moist. NECK: Supple. CHEST: Clear to auscultation. No respiratory distress. HEART: Regular rate and rhythm. No murmur heard. Normal peripheral pulses. ABDOMEN: Soft, nontender, nondistended, normal active bowel sounds. EXTREMITIES: Normal range of motion. No edema. SKIN: Warm, dry, no rash. NEURO: No focal deficits. Alert and oriented x3. PSYCH: Normal mood and affect. Course Vital Signs Vital signs: Vital Signs Temperature 36.9 C 07/09/22 19:31 Pulse Rate 111 H 07/09/22 19:31 R
[2022-07-10] MEDS: MAGNESIUM SULF 2 GM/WATER 50ML 2 GM/50 ML BAG IVPB (04:00)
== END 2022-07-10 05:57 | disposition home or self-care (01) ==
PROVIDERS: Physician Assistant; Emergency Provider Emergency Medicine; PCP Family Medicine Adolescent Medicine
DX: N39.0 Urinary tract infection, site not specified (principal); E11.9 Type 2 diabetes mellitus without complications; E78.5 Hyperlipidemia, unspecified; I10 Essential (primary) hypertension; K21.9 Gastro-esophageal reflux disease without esophagitis; Z85.51 Personal history of malignant neoplasm of bladder; Z87.442 Personal history of urinary calculi; Z79.82 Long term (current) use of aspirin; Z79.84 Long term (current) use of oral hypoglycemic drugs
CPT/HCPCS: 36415; 80053; 81001; 83690; 83735; 85025; 87086; 96361; 96365; 96367; 96375; 99284; J1956; J2405; J3475; J7030

== ENCOUNTER 2022-12-03 10:54 | Outpatient (CLI) | payer MEDICARE, SELFPAY ==
--- NOTE | ~2022-12-03 | XR_ITS ---
Supine and upright views of the abdomen Clinical history: Kidney stone COMPARISON: 06/13/2022 Findings: Bowel gas pattern is nonspecific. No evidence for obstruction or free air. Right nephrolith iasis is unchanged from prior exam. Stable scoliotic change of the lumbar spine with extensive degene rative change and stable orthopedic hardware at the L4-L5 level. Stable radiopaque density/device pro jecting over the right pelvis.. Impression: Stable right nephrolithiasis. Stable chronic findings of the lumbar spine, as noted above. Reviewed, dictated and finalized at location M. [facility] Impression: Stable right nephrolithiasis. Stable chronic findings of the lumbar spine, as noted above.
== END 2022-12-03 10:55 | disposition home or self-care (01) ==
PROVIDERS: PCP Family Medicine Adolescent Medicine; Visit Provider Urology
DX: N20.0 Calculus of kidney (principal)
CPT/HCPCS: 74018

== ENCOUNTER 2023-05-05 08:05 | Outpatient (CLI) | payer MEDICARE, SELFPAY ==
--- NOTE | ~2023-05-05 | CT_ITS ---
CT of the Abdomen and Pelvis: Indication: Microhematuria Technique: 2.5 mm axial scans were obtained through the abdomen and pelvis prior to and following in travenous administration of 130 cc of Omnipaque 350. Dose reduction technique was used on this scan b y utilizing automated exposure control and iterative reconstruction technique. The dose-length produc t (DLP) was 483.50 mGy-cm. COMPARISON: 06/13/2022 Findings: Scans through the lung bases demonstrate chronic interstitial disease with peripheral dist ribution. Multiple nonobstructing right renal stones are essentially stable from prior exam. There is mild righ t hydronephrosis with abrupt tapering at the UPJ region. Single small nonobstructing left renal stone unchanged. No left hydronephrosis. The liver, spleen, pancreas, and adrenal glands are within normal limits. Prominent pneumobilia prese nt within the gallbladder. There are atherosclerotic calcifications of the aorta. No lymphadenopathy . No bowel obstruction or bowel wall thickening. There is no evidence to suggest acute appendicitis. St able metallic device in the right lower quadrant, possibly within bowel. Images through the pelvis were performed. Urinary bladder unremarkable. No adnexal mass seen. No asci jane. Impression: Bilateral nephrolithiasis, unchanged from prior exam. More stones are present within the right kidney noted in the left. Probable mild right hydronephrosis with tapering at the right UPJ. Element of chronic, mild UPJ obstr uction is a consideration. Pneumobilia. Stable metallic device the right lower quadrant, possibly within bowel. Chronic interstitial disease the lung bases. Reviewed, dictated and finalized at location . Impression: Bilateral nephrolithiasis, unchanged from prior exam. More stones are present w ithin the right kidney noted in the left. Probable mild right hydronephrosis with tapering at the right UPJ. Element of c hronic, mild UPJ obstruction is a consideration. Pneumobilia. Stable metallic device the right lower quadrant, possibly within bowel. Chronic interstitial disease the lung bases.
--- NOTE | ~2023-05-05 | XR_ITS ---
EXAMINATION: XR abdomen/kub 1V INDICATION: Microscopic hematuria TECHNIQUE: Supine views of the abdomen were obtained on 2 radiographs. COMPARISON: 12/03/2022; CT from today FINDINGS: There are three stable stones of the right kidney lower pole measuring up to 10 mm. There i s a 5 mm stone in the medial aspect of the left kidney upper pole. Phleboliths are noted in the pelvi s. No stones are identified along the expected courses of the ureters. There is severe lumbar spondyl osis. Surgical changes are noted at L4-5. A metallic density projects in the right lower quadrant. Th ere are surgical clips in the left inguinal area. IMPRESSION: 1. Nonobstructing bilateral nephrolithiasis Reviewed, dictated and finalized at location L.
[2023-05-05 08:45] LABS: Estimated Glomerular Filt Rate 60
== END 2023-05-05 08:06 | disposition home or self-care (01) ==
LOC: ANHIMG 08:10
PROVIDERS: PCP Family Medicine Adolescent Medicine; Visit Provider Nurse Practitioner Adult Health
DX: R31.29 Other microscopic hematuria (principal); N20.0 Calculus of kidney; J84.9 Interstitial pulmonary disease, unspecified
CPT/HCPCS: 74018; 74178; Q9967

== ENCOUNTER 2024-02-26 11:15 | Outpatient (CLI) | payer MEDICARE, SELFPAY ==
--- NOTE | ~2024-02-26 | US_ITS ---
EXAMINATION: US pelvic complete w TV DATE: 02/26/2024 11:47 INDICATION: Postmenopausal bleeding Comparison:No prior studies for comparison. TECHNIQUE: Multiple transabdominal and endovaginal sonographic images of the pelvis performed. FINDINGS: The uterus measures 5.2 x 2.7 x 3.7 cm. The endometrial complex measures 5 mm. There is flu id in the endometrium. The ovaries are not visualized. There is no free fluid in the pelvis. There are no abnormal masses seen on either side. IMPRESSION: 1. Thickened endomtrial complex. The differential diagnosis includes endometrial hyperplasia, polyp a nd carcinoma. Biopsy is recommended. Reviewed, dictated and finalized at location B. IMPRESSION: 1. Thickened endomtrial complex. The differential diagnosis includes endometria l hyperplasia, polyp and carcinoma. Biopsy is recommended.
== END 2024-02-26 11:16 ==
PROVIDERS: PCP Nurse Practitioner Family; Visit Provider Nurse Practitioner Family
DX: N95.0 Postmenopausal bleeding (principal)
CPT/HCPCS: 76830; 76856

== ENCOUNTER 2024-03-17 23:21 | Inpatient (IN) | payer MEDICARE, SELFPAY ==
--- NOTE | ~2024-03-17 | XR_ITS ---
Portable chest x-ray Comparison: 01/02/2020 Clinical History: Dyspnea Findings: There is focal retrocardiac airspace opacity. Possible minimal bibasilar interstitial prom inence. Cardiomediastinal silhouette is stable. Bones and soft tissues are unremarkable. Impression: Left basilar atelectasis versus focal pneumonia. Correlate clinically. Probable minimal bibasilar chronic interstitial change. Reviewed, dictated and finalized at location . Impression: Left basilar atelectasis versus focal pneumonia. Correlate clinically. Probable minimal bibasilar chronic interstitial change.
[2024-03-17 23:22] VITALS: BP 177/76; PULSE 67; RESP 21; TEMP 36.6; O2SAT 98
[2024-03-18] VITALS (11 sets, daily range): BP systolic 133–185; BP diastolic 60–76; PULSE 69–106; RESP 14–22; TEMP 36.3–36.9; O2SAT 97–100; BMI 20.4
--- NOTE | 2024-03-18 00:06 | ECG_ITS ---
SEE SCANNED COPY FOR CONFIRMED REPORT MTDD
[2024-03-18 00:30] LABS: Basophils Percent Auto 0.5 % (0.2-1.2); Eosinophils Absolute Auto 0.1 K/mm3 (0-0.3); Eosinophils Percent Auto 1.8 % (0-4.4); Hematocrit 38.1 % (37.0-47.0); Hemoglobin 12.3 g/dL (12.0-15.0); Immature Granulocyte Absolute 0.03 K/mm3 (0.00-0.031); Immature Granulocyte Percent A 0.5 % (0-0.5); Lymphocytes Absolute Auto 0.63 K/mm3 (0.9-3.2); Lymphocytes Percent Auto 11.4 % (18.3-44.2); Mean Corpuscular HGB Conc 32.3 g/dl (32-36); Mean Corpuscular Hemoglobin 29.9 pg (26-34); Mean Corpuscular Volume 92.7 fl (80-100); Mean Platelet Volume 8.8 fl (7.4-10.4); Monocytes Absolute Auto 0.4 K/mm3 (0.1-0.6); Monocytes Percent Auto 7.6 % (2.6-8.5); Neutrophils Absolute Auto 4.3 K/mm3 (1.3-6.7); Neutrophils Percent Auto 78.2 % (45.5-73.1); Platelet Count Result 239 k/mm3 (150-375); Red Blood Count 4.11 M/mm3 (4.2-5.4); Red Cell Distribution Width 13.2 % (11.5-14.5); White Blood Count 5.5 K/mm3 (4.5-10.0)
[2024-03-18 00:39] LABS: Alanine Aminotransferase 11 U/L (6-35); Albumin Level 4.1 g/dL (3.5-5.1); Alkaline Phosphatase 107 U/L (38-126); Anion Gap 8 mmol/L (4-12); Aspartate Amino Transferase 31 U/L (14-36); Bilirubin,Total 0.4 mg/dL (0.2-1.3); Blood Urea Nitrogen 17 mg/dL (7-17); Calcium 8.7 mg/dL (8.4-10.2); Carbon Dioxide 27 mmol/L (22-30); Chloride 94 mmol/L (98-107); Estimated CRCL calculation 43 ml/min; Estimated Glomerular Filt Rate > 60; Glucose 110 mg/dL (65-110); Sodium 129 mmol/L (137-145)
[2024-03-18 01:06] LABS: Influenza A QL RT-PCR Negative (Negative); Influenza B QL RT-PCR Negative (Negative); RSV RNA, RT-PCR Negative (Negative); SARS-CoV-2 RNA PCR Positive (Negative)
--- NOTE | 2024-03-18 01:06 | PC.NURSE ---
This RN attempted IV access x2, 2nd RN to attempt
[2024-03-18] MEDS: SODIUM CHLORIDE 0.9% IV 1,500 ML 999 ML IV CONT (01:24)
--- NOTE | 2024-03-18 01:56 | ED.GENADULT ---
HPI - General Adult General Chief complaint: Upper Respiratory Infection Stated complaint: weakness, + covid Time Seen by Provider: 03/18/24 00:03 History of Present Illness HPI narrative: This is an 79-year-old female presenting with COVID infection x days.. Patient was on a cruise ship when she started to feel ill. When she got back she took a home COVID test was positive. She was prescribed Paxil of it by her primary care physician. However since then she has began to feel more weak. She has not been eating or drinking very well. She has had nausea but no vomiting. No chest pain, difficulty breathing, diarrhea or lower extremity edema. Related Data Home Medications Medication Instructions Recorded Confirmed Vitamin C 1 tablet PO DAILY 11/15/21 09/02/23 aspirin 81 mg tablet 81 mg PO DAILY 11/15/21 09/02/23 calcium 600 mg capsule 600 mg PO DAILY 11/15/21 09/02/23 ferrous gluconate 324 mg (37.5 mg 324 mg PO BID 11/15/21 09/02/23 iron) tablet magnesium 250 mg tablet 250 mg PO DAILY 11/15/21 09/02/23 multivitamin 1 cap PO DAILY 11/15/21 09/02/23 omega-3 fatty acids 500 mg PO DAILY 11/15/21 09/02/23 potassium 99 mg tablet 99 mg PO DAILY 11/15/21 09/02/23 vitamin [id number]-[id number] acid 1 cap PO EVERY OTHER DAY 11/15/21 09/02/23 oxybutynin chloride 10 mg mg PO 02/23/24 tablet,extended release 24 hr Allergies Allergy/AdvReac Type Severity Reaction Status Date / Time No Known Allergies Allergy Verified 03/17/24 23:27 [facility] Past Medical History Medical History Diabetes GERD (gastroesophageal reflux disease) History of bladder cancer (~03/2018) non-invasive low-grade papillary urothelial carcinoma HLD (hyperlipidemia) HTN (hypertension) Ureteral calculus (~03/2018) Surgical History Surgical History History of cholecystectomy (2010) Open History of lumbar surgery 2005, decompression History of vein stripping Family History Family History Father Acute myocardial infarction Cerebrovascular accident Mother Alzheimer's dementia Social History Social History Smoking status: Never smoker Second hand tobacco smoke exposure: No Alcohol intake: never Substance use: never Substance use type: does not use Lack of Transportation: No Lack of Food: Never True Current Housing: I Have Housing Concerned About Future Housing: No Difficulty Paying Gas/Electric Bills: No Difficulty Paying for Meds: No Currently Unemployed: No Education: Decline to Answer Difficulty w/ Childcare or Family Care: No Living arrangements: alone Occupation/Education: retired Gender identity (if verbalized by the patient): Female Sexual Orientation (if Verbalized by the Patient): Straight or Heterosexual Spiritual care concerns: No Agree to blood products: Yes Exam Narrative: APPEARANCE: patient appears weak/frail Head: atraumatic. EYES: EOMI, NOSE: Atraumatic NECK: Trachea midline RESPIRATORY: No increased rate of breathing CTAB CARDIOVASCULAR: RRR, no peripheral edema ABDOMINAL: Non-distended soft nontender no CVA tenderness MUSCULOSKELETAl: No obvious deformities NEURO: Alert. Moving 4/4 extremities SKIN:: Warm, dry. Normal color PSYCHIATRIC: Normal affect Course Vital Signs Vital signs: Vital Signs Temperature 97.8 F 03/17/24 23:22 Pulse Rate 67 03/17/24 23:22 Respiratory Rate 21 H 03/17/24 23:22 Blood Pressure 177/76 H 03/17/24 23:22 Pulse Oximetry 98 03/17/24 23:22 Oxygen Delivery Room Air 03/17/24 23:22 Temperature 97.8 F 03/17/24 23:22 Pulse Rate 87 03/18/24 03:35 Respiratory Rate 14 03/18/24 03:28 Blood Pressure 168/76 H 03/18/24 03:28 Pulse Oximetry 98 03/18/24 03:28 Oxygen Delivery Room Air 03/17/24 23:27 M
[2024-03-18 02:23] LABS: Appearance Urine Cloudy (Clear); Bacteria Urine 4+ /hpf; Bilirubin Urine Negative (Negative); Blood Urine Non-Hemolyzed Trace (Negative); Color Urine Yellow (Yellow); Glucose Urine UA Negative (Negative); Ketones Urine Trace mg/dL (Negative); Leukocyte Esterase Ur 2+ LEU/UL (Negative); Nitrate Urine Positive (Negative); Non Pathogenic Casts 0-2; Protein Urine Trace mg/dL (Negative); Specific Grav Ur 1.012 (1.001-1.035); Squamous Epithelial Cell Urine None Seen /hpf (Few); Urobilinogen Urine 0.2 mg/dL (<2.0); WBC Urine >100 /hpf (0-3); pH Urine 6.5 (5.0-9.0)
[2024-03-18 02:25] LABS: Add Urine Microscopic? YES
--- NOTE | 2024-03-18 05:38 | ADMGEN ---
This patient, Evelyn Hatfield, was admitted to Medical Room 343-01. Patient/family oriented to hospital policies and general routines including ID bracelet, bed and alarms, visiting hours, pain management, procedures, bathroom and other care routines, personal items, smoking policy, room service/diet, and visiting hours. Information on how to activate the Rapid Response Team has been discussed. Patient/Family are encouraged to report perceived risks to care and to ask questions if they do not understand what they are told or what they should do.
--- NOTE | 2024-03-18 07:43 | PC.NURSE ---
RN gave update to daughter Fouzia via telephone.
--- NOTE | 2024-03-18 13:03 | PM.IMHP ---
H&P: HPI History of Present Illness Date/Time: 03/18/24 13:03 Chief Complaint: weakness, COVID Narrative: This is a 79-year-old female with a past medical history of diabetes, AFib, hypertension, hyperlipidemia, anemia, arthritis and overactive bladder the presented to the ED on 03/18/2024 due to flu-like symptoms and progressive weakness. Patient developed cough, congestion, body aches and chills, and T on 03/13/2024. Patient never tested her temperature to see if she had a fever. She had recently been on a cruise and got off of her cruise on 03/14/2024. Patient is unsure if she had any sick contacts. Patient progressively got weaker and the day of presentation she also started to develop some dysuria. She is up-to-date on COVID vaccinations. ED vitals: BP 177/76, pulse 67, RR 21, temp 97.8?, O2 saturation 98 RA Findings: CBC insignificant with stable H&H, sodium 120, chloride 94, BUN and creatinine within normal limits. UA positive nitrate, 2+ leukocyte esterase, 3-5 rbc's, greater than 100 wbc's and 4+ bacteria. CXR atelectasis versus pneumonia. When comparing to previous chest x-ray there is no change. Patient does have history of lung scarring. [facility] Past Medical History Medical History Diabetes GERD (gastroesophageal reflux disease) History of bladder cancer (~03/2018) non-invasive low-grade papillary urothelial carcinoma HLD (hyperlipidemia) HTN (hypertension) Ureteral calculus (~03/2018) Surgical History Surgical History History of cholecystectomy (2010) Open History of lumbar surgery 2005, decompression History of vein stripping Family History Family History Father Acute myocardial infarction Cerebrovascular accident Mother Alzheimer's dementia Social History Social History Smoking status: Never smoker Second hand tobacco smoke exposure: No Alcohol intake: never Substance use: never Substance use type: does not use Do You Feel Safe in your Home?: Yes Lack of Transportation: No Lack of Food: Never True Current Housing: I Have Housing Concerned About Future Housing: No Difficulty Paying Gas/Electric Bills: No Difficulty Paying for Meds: No Currently Unemployed: No Education: High School Diploma/GED Difficulty w/ Childcare or Family Care: No Living arrangements: alone Occupation/Education: retired Gender identity (if verbalized by the patient): Female Sexual Orientation (if Verbalized by the Patient): Straight or Heterosexual Spiritual care concerns: No Agree to blood products: Yes Meds Home Medications and Allergies Home Medications Medication Instructions Recorded Confirmed Type Vitamin C 1 tablet PO DAILY 11/15/21 03/18/24 History aspirin 81 mg tablet 81 mg PO DAILY 11/15/21 03/18/24 History calcium 600 mg capsule 600 mg PO DAILY 11/15/21 03/18/24 History ferrous gluconate 324 mg (37.5 mg 324 mg PO BID 11/15/21 03/18/24 History iron) tablet magnesium 250 mg tablet 250 mg PO DAILY 11/15/21 03/18/24 History multivitamin 1 cap PO DAILY 11/15/21 03/18/24 History omega-3 fatty acids 500 mg PO DAILY 11/15/21 03/18/24 History potassium 99 mg tablet 99 mg PO DAILY 11/15/21 03/18/24 History vitamin H31-dfksc acid 1 cap PO DAILY 11/15/21 03/18/24 History meloxicam 15 mg tablet 15 mg PO DAILY #90 tabs 06/09/23 03/18/24 Rx digoxin 125 mcg (0.125 mg) tablet 125 mcg PO DAILY #90 tabs 07/08/23 03/18/24 Rx atorvastatin 40 mg tablet 40 mg PO DAILY #90 tabs 08/19/23 03/18/24 Rx donepezil 10 mg tablet 10 mg PO QHS #90 tabs 08/19/23 03/18/24 Rx fluticasone propionate 50 2 spray intranasal DAILY PRN 08/24/23 03/18/24 Rx mcg/actuation nasal Allergy Symptoms #48 grams spray,suspension (Allergy Relief (fluticasone)) pantoprazole 40 mg tabl
[2024-03-18] MEDS: ALBUTEROL SULFATE (*SP) AEROSOL 1 PUFF 2 PUFF INHALATION (13:41)
[2024-03-18] MEDS: oxyBUTYnin CHLORIDE XL 5 MG TAB.ER.24 10 MG PO (13:54)
[2024-03-18] MEDS: SERTRALINE HCL 50 MG TABLET PO (13:54)
[2024-03-18] MEDS: MAGNESIUM 13.5 MG TABLET (250 MG MAG GLUCONATE) PO (13:54)
[2024-03-18] MEDS: lisinopriL 20 MG TABLET PO (13:54)
[2024-03-18] MEDS: DIGOXIN TAB 125 MCG TABLET PO (13:54)
[2024-03-18] MEDS: amLODIPine BESYLATE 5 MG TABLET PO (13:54)
[2024-03-18] MEDS: guaiFENesin 600 MG/DEXTROMETHORPHAN 30 MG SR TAB 12 HR 1 TAB PO ×2 (13:54→21:10)
[2024-03-18] MEDS: ASPIRIN 81 MG ENTERIC TABLET PO (13:54)
[2024-03-18] MEDS: FLUTICASONE PROPIONATE 0.05% NA SPR 16 GM BTL (*BKC) 2 SPRAY NASAL ×2 (13:54→21:13)
[2024-03-18] MEDS: POTASSIUM CHLORIDE 20 MEQ ER TABLET 40 MEQ PO (14:02)
[2024-03-18] MEDS: REMDESIVIR 200 MG/NS 250 ML 200 MG/250 ML BAG 250 MG IVPB (14:18)
[2024-03-18] MEDS: ACETAMINOPHEN 325 MG TABLET 650 MG PO (15:59)
[2024-03-18] MEDS: FERROUS GLUCONATE 324 MG TABLET PO (18:27)
[2024-03-18] MEDS: DONEPEZIL HCL 10 MG TABLET PO (21:10)
[2024-03-18 21:15] LABS: Glucose Point of Care 174 mg/dl (65-105)
[2024-03-19 04:27] VITALS: BP 169/66; PULSE 64; RESP 16; TEMP 36.2; O2SAT 95
[2024-03-19 06:07] LABS: Hematocrit 37.9 % (37.0-47.0); Hemoglobin 12.1 g/dL (12.0-15.0); Mean Corpuscular HGB Conc 31.9 g/dl (32-36); Mean Corpuscular Hemoglobin 29.7 pg (26-34); Mean Corpuscular Volume 93.1 fl (80-100); Mean Platelet Volume 8.9 fl (7.4-10.4); Platelet Count Result 252 k/mm3 (150-375); Red Blood Count 4.07 M/mm3 (4.2-5.4); Red Cell Distribution Width 13.4 % (11.5-14.5); White Blood Count 5.2 K/mm3 (4.5-10.0)
[2024-03-19 06:18] LABS: Anion Gap 5 mmol/L (4-12); Blood Urea Nitrogen 15 mg/dL (7-17); Carbon Dioxide 28 mmol/L (22-30); Chloride 101 mmol/L (98-107); Estimated CRCL calculation 43 ml/min; Estimated Glomerular Filt Rate > 60; Glucose 82 mg/dL (65-110); Potassium 4.4 mmol/L (3.4-5.0); Sodium 134 mmol/L (137-145)
--- NOTE | 2024-03-19 07:30 | PC.NURSE ---
Patient does not want to take atorvastatin at this time. She states that her primary doctor told her to hold the medication for 5 days while she was taking paxlovid.
[2024-03-19 07:35] LABS: Glucose Point of Care 122 mg/dl (65-105)
[2024-03-19 08:43] VITALS: PULSE 74
[2024-03-19] MEDS: DIGOXIN TAB 125 MCG TABLET PO (08:43)
[2024-03-19] MEDS: amLODIPine BESYLATE 5 MG TABLET PO (08:44)
[2024-03-19] MEDS: guaiFENesin 600 MG/DEXTROMETHORPHAN 30 MG SR TAB 12 HR 1 TAB PO ×2 (08:44→21:24)
[2024-03-19] MEDS: MAGNESIUM 13.5 MG TABLET (250 MG MAG GLUCONATE) PO (08:44)
[2024-03-19] MEDS: oxyBUTYnin CHLORIDE XL 5 MG TAB.ER.24 10 MG PO (08:44)
[2024-03-19] MEDS: ASPIRIN 81 MG ENTERIC TABLET PO (08:44)
[2024-03-19] MEDS: FERROUS GLUCONATE 324 MG TABLET PO ×2 (08:44→17:17)
[2024-03-19] MEDS: SERTRALINE HCL 50 MG TABLET PO (08:45)
[2024-03-19] MEDS: lisinopriL 20 MG TABLET PO (08:45)
[2024-03-19] MEDS: REMDESIVIR 100 MG/NS 250 ML 100 MG/250 ML BAG 250 MG IVPB (11:34)
[2024-03-19 11:54] LABS: Glucose Point of Care 116 mg/dl (65-105)
[2024-03-19 14:00] VITALS: BP 146/72; PULSE 65; RESP 18; TEMP 37; O2SAT 97
--- NOTE | 2024-03-19 14:02 | PM.IMPN ---
Progress Note: A&P Assessment and Plan (1) COVID: Code(s): U07.1 - COVID-19 Status: Acute Assessment and Plan: Patient's symptoms began on 03/13/2024. Patient tested positive for COVID on 03/18/2024 Patient not requiring any oxygen supplementation. Started on remdesivir on 03/18/2024 Albuterol p.r.n. Mucinex p.r.n. (2) Acute UTI: Code(s): N39.0 - Urinary tract infection, site not specified Status: Acute Assessment and Plan: UA positive nitrate, 2+ leukocyte esterase, 3-5 rbc's, greater than 100 wbc's and 4+ bacteria. Urine culture pending. Patient started on Rocephin on 03/18/2024 Adjust antibiotic therapy to culture results. (3) Paroxysmal atrial fibrillation: Code(s): I48.0 - Paroxysmal atrial fibrillation Status: Acute Assessment and Plan: Currently rate controlled. Continue digoxin (4) Iron deficiency anemia, unspecified: Code(s): D50.9 - Iron deficiency anemia, unspecified Status: Acute Assessment and Plan: continue iron supplementation. Anemia stable. (5) HTN (hypertension): Code(s): I10 - Essential (primary) hypertension Status: Acute Assessment and Plan: Continue home medication (6) Diabetes: Code(s): E11.9 - Type 2 diabetes mellitus without complications Status: Acute Assessment and Plan: Insulin Lispro sliding scale, Accu-checks qAc and HS and Hold oral hypoglycemics Initiate hypoglycemic precautions Subjective Date/time seen: 03/19/24 14:02 Interval history: patient resting comfortably in bed. She denies active cough at this time. She is not having any urinary burning or dysuria. Urine culture pending. Continue treatment with remdesivir and Rocephin. Exam Narrative: GENERAL: Comfortable, no acute distress HENMT: moist mucous membranes EYES: EOM intact b/l NECK: no lymphadenopathy RESPIRATORY: bibasilar crackles CARDIO: Regular rate and rhythm GI: soft, nontender, bowel sounds present SKIN/EXTREMITIES: no rashes, no edema, no redness or tenderness NEURO: PROM intact, answers questions appropriately, A&O x4 Objective Data Vital Signs Vital Signs: Vital Signs - 24 hr 03/18/24 15:25 03/18/24 18:13 03/18/24 20:19 Temperature 98.4 F 97.3 F L Pulse Rate 72 69 Respiratory Rate 16 18 Blood Pressure 133/60 167/68 H Pulse Oximetry 100 99 Oxygen Delivery 03/18/24 20:00 03/19/24 04:27 03/19/24 08:43 Temperature 97.2 F L Pulse Rate 69 64 74 Respiratory Rate 18 16 Blood Pressure 169/66 H Pulse Oximetry 99 95 Oxygen Delivery Room Air 03/19/24 08:44 Temperature Pulse Rate Respiratory Rate Blood Pressure Pulse Oximetry Oxygen Delivery Room Air Intake/Output Intake/Output: Intake & Output 03/16/24 03/17/24 03/18/24 03/19/24 23:59 23:59 23:59 23:59 Intake Total 2230 640 Balance 2230 640 Meds/Results Medications: Active Medications Generic Name Dose Route Start Last Admin Trade Name Freq PRN Reason Stop Dose Admin Acetaminophen 650 mg 03/18/24 15:51 03/18/24 15:59 Acetaminophen 325 Mg Tablet PO 650 mg Q4H PRN Administration Headache Albuterol 2 puff 03/18/24 14:00 03/19/24 13:30 Albuterol Sulfate (*Sp) Aerosol 1 Puff INHALATION Not Given Q6HRT [facility] Amlodipine Besylate 5 mg 03/18/24 13:20 03/19/24 08:44 Amlodipine Besylate 5 Mg Tablet PO 5 mg DAILY BERTHA Administration Aspirin 81 mg 03/18/24 13:20 03/19/24 08:44 Aspirin 81 Mg Enteric Tablet PO 04/18/24 13:19 81 mg DAILY BERTHA Administration Atorvastatin Calcium 40 mg 03/18/24 13:20 03/19/24 08:47 Atorvastatin 40 Mg Tablet PO Not Given DAILY [facility] Dextrose 12.5 gm 03/18/24 13:15 Dextrose 50% 25 Gm/50 Ml Syringe IV PUSH PRN PRN Hypoglycemia Protocol Digoxin 125 mcg 03/18/24 13:20 03/19/24 08:43 Digoxin Tab 125 Mcg Tab
[2024-03-19 17:05] LABS: Glucose Point of Care 143 mg/dl (65-105)
[2024-03-19] MEDS: ACETAMINOPHEN 325 MG TABLET 650 MG PO (17:17)
[2024-03-19 20:00] VITALS: PULSE 64; RESP 20; O2SAT 97
[2024-03-19 20:49] VITALS: BP 156/65; PULSE 64; RESP 20; TEMP 36.9; O2SAT 97
[2024-03-19] MEDS: DONEPEZIL HCL 10 MG TABLET PO (21:24)
[2024-03-19] MEDS: FLUTICASONE PROPIONATE 0.05% NA SPR 16 GM BTL (*BKC) 2 SPRAY NASAL (21:24)
[2024-03-19] MEDS: MELATONIN 3 MG TABLET PO (21:27)
[2024-03-20 02:00] LABS: Glucose Point of Care 132 mg/dl (65-105)
[2024-03-20 05:38] LABS: Hematocrit 36.3 % (37.0-47.0); Hemoglobin 11.4 g/dL (12.0-15.0); Mean Corpuscular HGB Conc 31.4 g/dl (32-36); Mean Corpuscular Hemoglobin 29.7 pg (26-34); Mean Corpuscular Volume 94.5 fl (80-100); Mean Platelet Volume 8.9 fl (7.4-10.4); Platelet Count Result 248 k/mm3 (150-375); Red Blood Count 3.84 M/mm3 (4.2-5.4); Red Cell Distribution Width 13.2 % (11.5-14.5); White Blood Count 4.4 K/mm3 (4.5-10.0)
[2024-03-20 06:00] VITALS: BP 139/69; PULSE 55; RESP 20; TEMP 36; O2SAT 99
[2024-03-20 06:16] LABS: Alanine Aminotransferase 13 U/L (6-35); Albumin Level 3.3 g/dL (3.5-5.1); Alkaline Phosphatase 72 U/L (38-126); Anion Gap 5 mmol/L (4-12); Aspartate Amino Transferase 26 U/L (14-36); Bilirubin,Total 0.2 mg/dL (0.2-1.3); Blood Urea Nitrogen 23 mg/dL (7-17); Calcium 8.7 mg/dL (8.4-10.2); Carbon Dioxide 27 mmol/L (22-30); Chloride 101 mmol/L (98-107); Estimated CRCL calculation 43 ml/min; Estimated Glomerular Filt Rate > 60; Glucose 94 mg/dL (65-110); Potassium 4.3 mmol/L (3.4-5.0); Sodium 133 mmol/L (137-145)
[2024-03-20 06:31] LABS: INR 0.9; Prothrombin Time 12.5 Seconds (11.1-14.7)
[2024-03-20 07:56] LABS: Glucose Point of Care 100 mg/dl (65-105)
[2024-03-20 08:45] VITALS: BP 149/72; PULSE 78; O2SAT 99
[2024-03-20 08:50] VITALS: PULSE 78
[2024-03-20] MEDS: ATORVASTATIN 40 MG TABLET PO (08:50)
[2024-03-20] MEDS: MAGNESIUM 13.5 MG TABLET (250 MG MAG GLUCONATE) PO (08:50)
[2024-03-20] MEDS: lisinopriL 20 MG TABLET PO (08:50)
[2024-03-20] MEDS: FERROUS GLUCONATE 324 MG TABLET PO (08:50)
[2024-03-20] MEDS: SERTRALINE HCL 50 MG TABLET PO (08:50)
[2024-03-20] MEDS: ASPIRIN 81 MG ENTERIC TABLET PO (08:50)
[2024-03-20] MEDS: ACETAMINOPHEN 325 MG TABLET 650 MG PO (08:50)
[2024-03-20] MEDS: guaiFENesin 600 MG/DEXTROMETHORPHAN 30 MG SR TAB 12 HR 1 TAB PO (08:50)
[2024-03-20] MEDS: DIGOXIN TAB 125 MCG TABLET PO (08:50)
[2024-03-20] MEDS: amLODIPine BESYLATE 5 MG TABLET PO (08:50)
[2024-03-20] MEDS: oxyBUTYnin CHLORIDE XL 5 MG TAB.ER.24 10 MG PO (08:50)
[2024-03-20 11:32] LABS: Glucose Point of Care 125 mg/dl (65-105)
[2024-03-20] MEDS: REMDESIVIR 100 MG/NS 250 ML 100 MG/250 ML BAG 250 MG IVPB (11:37)
[2024-03-20] MEDS: FLUTICASONE PROPIONATE 0.05% NA SPR 16 GM BTL (*BKC) 2 SPRAY NASAL (11:38)
--- NOTE | 2024-03-20 12:30 | PM.DS ---
DS: Admitting Diagnosis Discharge Date 03/20/24 Admitting Diagnosis UTI, COVID DS: Discharge Diagnosis Discharge Diagnosis (1) COVID: Code(s): U07.1 - COVID-19 Status: Acute (2) Acute UTI: Code(s): N39.0 - Urinary tract infection, site not specified Status: Acute (3) Paroxysmal atrial fibrillation: Code(s): I48.0 - Paroxysmal atrial fibrillation Status: Acute (4) Iron deficiency anemia, unspecified: Code(s): D50.9 - Iron deficiency anemia, unspecified Status: Acute (5) HTN (hypertension): Code(s): I10 - Essential (primary) hypertension Status: Acute (6) Diabetes: Code(s): E11.9 - Type 2 diabetes mellitus without complications Status: Acute DS: Summary Hospital Course Hospital Course: This is a 79-year-old female with a past medical history of diabetes, AFib, hypertension, hyperlipidemia, anemia, arthritis and overactive bladder the presented to the ED on 03/18/2024 due to flu-like symptoms and progressive weakness.? Patient developed cough, congestion, body aches and chills on? 03/13/2024.? ? Patient never tested her temperature to see if she had a fever.? She had recently been on a cruise and got off of her cruise on 03/14/2024.? Patient is unsure if she had any sick contacts.? Patient progressively got weaker and the day of presentation she also? started to develop some dysuria.? She is up-to-date on COVID vaccinations. ED findings: CBC insignificant with stable H&H, sodium 120, chloride 94, BUN and creatinine within normal limits.? UA positive nitrate, 2+ leukocyte esterase, 3-5 rbc's, greater than 100 wbc's and 4+ bacteria. CXR atelectasis versus pneumonia.? When comparing to previous chest x-ray there is no change.? Patient does have history of lung scarring. patient was started on IV Rocephin and remdesivir for treatment of UTI and COVID. Patient never required any oxygen supplementation. She received a total of 3 doses of remdesivir. Urine culture came back positive for Klebsiella pneumoniae and was pansensitive. Patient was able to be transition to p.o. antibiotics. Patient independent and doing well. Her labs and vital signs are stable and she is medically clear for discharge at this time. Time Spent with Patient Time attestation: Total time spent providing and/or coordinating discharge services: Exam Narrative: GENERAL: Comfortable, no acute distress HENMT: moist mucous membranes EYES: EOM intact b/l NECK: no lymphadenopathy RESPIRATORY: bibasilar crackles-Much improved CARDIO: Regular rate and rhythm GI: soft, nontender, bowel sounds present SKIN/EXTREMITIES: no rashes, no edema, no redness or tenderness NEURO: PROM intact, answers questions appropriately, A&O x4 DS: Data Data Completed and Pending Labs on day of discharge: Labs from last 24 hours 03/20/24 03/20/24 03/20/24 11:28 07:52 05:13 WBC 4.4 L RBC 3.84 L Hgb 11.4 L Hct 36.3 L MCV 94.5 MCH 29.7 MCHC 31.4 L RDW 13.2 Plt Count 248 MPV 8.9 PT 12.5 INR 0.9 Sodium 133 L Potassium 4.3 Chloride 101 Carbon Dioxide 27 Anion Gap 5 BUN 23 H Creatinine 0.70 Estim Creat Clear Calc 43 Estimated GFR > 60 Glucose 94 POC Capillary Glucose 125 H 100 Calcium 8.7 Total Bilirubin 0.2 Direct Bilirubin TNP AST 26 ALT 13 Alkaline Phosphatase 72 Total Protein 6.0 L Albumin 3.3 L 03/19/24 03/19/24 20:47 17:02 WBC RBC Hgb Hct MCV MCH MCHC RDW Plt Count MPV PT INR Sodium Potassium Chloride Carbon Dioxide Anion Gap BUN Creatinine Estim Creat Clear Calc Estimated GFR Glucose POC Capillary Glucose 132 H 143 H Calcium Total Bilirubin Direct Bilirubin AST ALT Alkaline Phosphatase Total Protein Albumin Discharge Plan Discharge Discharging Clinician: Katheryn Quesada Patient Disposit
--- NOTE | 2024-03-20 12:45 | PC.NURSE ---
Hospitalist Katheryn put in communication order for RN to give 0300 dose at 1300 and then patient can discharge after.
== END 2024-03-20 14:00 | disposition home or self-care (01) | DRG 178 ==
LOC: ANHED 03-18 05:18 → ANH3MED 03-18 05:20
PROVIDERS: Internal Medicine Critical Care Medicine; Admitting Provider Internal Medicine; Emergency Provider Emergency Medicine; PCP Nurse Practitioner Family; Visit Provider Internal Medicine
DX: U07.1 COVID-19 (principal); N39.0 Urinary tract infection, site not specified; I48.0 Paroxysmal atrial fibrillation; I10 Essential (primary) hypertension; D50.9 Iron deficiency anemia, unspecified; E11.9 Type 2 diabetes mellitus without complications; E78.5 Hyperlipidemia, unspecified; M19.90 Unspecified osteoarthritis, unspecified site; K21.9 Gastro-esophageal reflux disease without esophagitis; Z79.82 Long term (current) use of aspirin; Z85.51 Personal history of malignant neoplasm of bladder; Z87.442 Personal history of urinary calculi
CPT/HCPCS: 36415; 71045; 80048; 80053; 80076; 81001; 82948; 85025; 85027; 85610; 87077; 87086; 87088; 87186; 87637; 93005; 94640; 96365; 96375; 99285; A9270; G0378; J0248; J0696; J7030; J7040

== ENCOUNTER 2024-04-06 13:06 | Outpatient (CLI) | payer MEDICARE, SELFPAY ==
[2024-04-06 13:24] LABS: Basophils Absolute Auto 0.1 K/mm3 (0.0-0.1); Basophils Percent Auto 0.8 % (0.2-1.2); Eosinophils Absolute Auto 0.3 K/mm3 (0-0.3); Eosinophils Percent Auto 4.8 % (0-4.4); Hematocrit 33.3 % (37.0-47.0); Hemoglobin 10.6 g/dL (12.0-15.0); Immature Granulocyte Absolute 0.01 K/mm3 (0.00-0.031); Immature Granulocyte Percent A 0.2 % (0-0.5); Lymphocytes Absolute Auto 1.15 K/mm3 (0.9-3.2); Lymphocytes Percent Auto 17.8 % (18.3-44.2); Mean Corpuscular HGB Conc 31.8 g/dl (32-36); Mean Corpuscular Hemoglobin 30.5 pg (26-34); Monocytes Absolute Auto 0.8 K/mm3 (0.1-0.6); Monocytes Percent Auto 11.6 % (2.6-8.5); Neutrophils Absolute Auto 4.2 K/mm3 (1.3-6.7); Neutrophils Percent Auto 64.8 % (45.5-73.1); Platelet Count Result 267 k/mm3 (150-375); Red Blood Count 3.47 M/mm3 (4.2-5.4); Red Cell Distribution Width 14.1 % (11.5-14.5); White Blood Count 6.5 K/mm3 (4.5-10.0)
[2024-04-06 17:52] LABS: Iron 97 ug/dL (37-170)
[2024-04-06 18:03] LABS: Percent Iron Saturation 31 % (20-50)
[2024-04-06 18:16] LABS: Alanine Aminotransferase 11 U/L (6-35); Albumin Level 4.1 g/dL (3.5-5.1); Alkaline Phosphatase 88 U/L (38-126); Anion Gap 8 mmol/L (4-12); Aspartate Amino Transferase 29 U/L (14-36); Bilirubin,Total 0.3 mg/dL (0.2-1.3); Blood Urea Nitrogen 24 mg/dL (7-17); Calcium 9.8 mg/dL (8.4-10.2); Carbon Dioxide 28 mmol/L (22-30); Chloride 100 mmol/L (98-107); Estimated Glomerular Filt Rate 53; Glucose 98 mg/dL (65-110); Potassium 4.6 mmol/L (3.4-5.0); Sodium 136 mmol/L (137-145)
[2024-04-06 19:25] LABS: Folic Acid > 20.0 ng/mL (2.76->20)
== END 2024-04-06 13:07 | disposition home or self-care (01) ==
LOC: ANHLAB 13:07
PROVIDERS: PCP Nurse Practitioner Family; Visit Provider Internal Medicine Hematology & Oncology
DX: D64.9 Anemia, unspecified (principal)
CPT/HCPCS: 36415; 80053; 82607; 82728; 82746; 83540; 83550; 85025

== ENCOUNTER 2024-05-02 00:56 | Day surgery (SDC) | payer MEDICARE, SELFPAY ==
--- NOTE | 2024-04-29 10:36 | PC.NURSE ---
Report to the Outpatient Waiting Room, entrance under the green pavilion located off [facility], at time __0845 on date _05/02/24 . Planned Procedure Time: ___1045 . Time changes happen often and if your time is changed the preop area will call you the afternoon before. - You and your visitor will be asked to self-screen and do not enter if you have any COVID symptoms. - A mask is optional within the hospital at this time. Patients may have clear liquids (water, carbonated beverages, clear teas, apple juice) until 3 hours prior to surgery (0745)with a maximum of 20 ounces. - No food from midnight until time of surgery - Infants may have breast milk until 4 hours before surgery, infant formula 6 hours prior to surgery. - Children will be allowed to drink immediately following surgery. If applicable, please bring a bottle or sippy cup to assist with drinking. Juice, water, soda, and popsicles are readily available. For infants on formula, please bring formula the day of surgery. Pacifiers are allowed. Take the following medications with a SIP of water the morning of surgery: AMLODIPINE DO NOT STOP ANY OF YOUR OTHER PRESCRIPTION MEDICATIONS PRIOR TO SURGERY ?EXCEPT THE FOLLOWING Medications to discontinue per physician ___ALL VITAMINS AND SUPPLEMENTS 3 DAYS PRE OP.STATES LAST DOSE 04/29/[address] KANG Date to take last dose Please no make-up, nail german, hairspray, perfume, deodorant, or body powder the day of surgery. No jewelry (including any body piercings) or valuables the day of surgery, leave them at home. Please take a shower or bath the night before, or the morning of, surgery with an antibacterial soap. Wear comfortable, loose fitting clothing. Children are encouraged to wear pajamas. - Jewelry must be removed prior to entering the operating room. Rings and piercings that are not removed may be cut off. - The hospital will not accept responsibility for valuables. - Please leave all valuables, including medications, at home the day of surgery. If you are going home after surgery, a licensed rental car ferry driver must drive you home. - NO public transportation without another adult if you receive anesthesia. - We recommend that an adult stay with you for 24 hours following discharge. - We also recommend that you do not drive, make important decision, drink alcoholic beverages, or take any drugs that were not prescribed by your health care provider for at least 24 hours after your discharge time. For Pediatric surgeries, we recommend two adults accompany the child home. Follow any additional instructions given to you from your surgeon. If you or anyone in your household have experienced Covid symptoms in the past week, please notify your surgeon or the nurse liaison at the phone number below for possible testing. Telephone instructions given to __PT and asked if any additional questions and then verbalized understanding. Patient advised to call surgeon office or pre surgery nurse liaison [phone] if any additional questions.
[2024-04-29 10:42] VITALS: BMI 20.5
--- NOTE | 2024-05-02 06:42 | WPDHPUPDATE1 ---
History and Physical Update Update Date/Time: 05/02/24 06:42 History and Physical has been reviewed, including an updated exam of the patient. There are NO changes in the patient's condition. Risks, benefits, and alternatives have been discussed and questions answered. Patient agrees to proceed with hysteroscopy with D&C for endometrial sampling.
[2024-05-02 09:50] VITALS: BP 172/82; PULSE 88; RESP 14; TEMP 36.7; O2SAT 98
[2024-05-02 09:50] LABS: Glucose Point of Care 121 mg/dl (65-105)
[2024-05-02] MEDS: ACETAMINOPHEN 500 MG TABLET 1000 MG PO (09:50)
[2024-05-02] MEDS: LACTATED RINGERS 1,000 ML 30 ML IV CONT (09:50)
[2024-05-02 09:52] LABS: Digoxin 0.7 ng/mL (0.8-2.0)
--- NOTE | 2024-05-02 11:03 | WPDANESEPPF ---
Anes - Initial Pre Proc Eval Procedure: Operation Date: 05/02/24 10:45 Proposed Procedures p Hysteroscopy, Dilation and Curettage - Jayne Keane MD Date/Time: 05/02/24 11:03 Surgeon: Jayne Keane MD Pre Op Diagnosis: post menopausal bleeding Patient Data Age: 79 Gender: F Height: 1.57 m Weight: 51.2 kg Last Vital Signs Temp 98.1 F 05/02/24 09:50 Pulse 88 05/02/24 09:50 Resp 14 05/02/24 09:50 BP 172/82 H 05/02/24 09:50 Pulse Ox 98 05/02/24 09:50 O2 Del Method Room Air 05/02/24 09:50 Allergies Allergy/AdvReac Type Severity Reaction Status Date / Time No Known Allergies Allergy Verified 05/02/24 11:00 Home Medications Medication Instructions Recorded Confirmed Type Vitamin C 1 tablet PO DAILY 11/15/21 04/29/24 History aspirin 81 mg tablet 81 mg PO DAILY 11/15/21 04/29/24 History calcium 600 mg capsule 600 mg PO DAILY 11/15/21 04/29/24 History ferrous gluconate 324 mg (37.5 mg 324 mg PO BID 11/15/21 04/29/24 History iron) tablet magnesium 250 mg tablet 250 mg PO DAILY 11/15/21 04/29/24 History multivitamin 1 cap PO DAILY 11/15/21 04/29/24 History omega-3 fatty acids 500 mg PO DAILY 11/15/21 04/29/24 History potassium 99 mg tablet 99 mg PO DAILY 11/15/21 04/29/24 History vitamin G52-sqrnl acid 1 cap PO DAILY 11/15/21 04/29/24 History meloxicam 15 mg tablet 15 mg PO DAILY #90 tabs 06/09/23 04/29/24 Rx digoxin 125 mcg (0.125 mg) tablet 125 mcg PO DAILY #90 tabs 07/08/23 04/29/24 Rx atorvastatin 40 mg tablet 40 mg PO DAILY #90 tabs 08/19/23 04/29/24 Rx donepezil 10 mg tablet 10 mg PO QHS #90 tabs 08/19/23 04/29/24 Rx fluticasone propionate 50 2 spray intranasal DAILY PRN 10/30/23 07/05/24 Rx mcg/actuation nasal Allergy Symptoms #48 grams spray,suspension (Allergy Relief (fluticasone)) pantoprazole 40 mg tablet,delayed 40 mg PO QAM #90 tabs 11/16/23 04/29/24 Rx release amlodipine 5 mg tablet 5 mg PO DAILY #90 tabs 11/23/23 05/02/24 Rx oxybutynin chloride 10 mg 10 mg PO DAILY 02/23/24 04/29/24 History tablet,extended release 24 hr blood sugar diagnostic (FreeStyle #100 ea 02/29/24 04/25/24 Rx Lite Strips) benazepril 20 mg tablet 20 mg PO DAILY 03/18/24 04/29/24 History sertraline 50 mg tablet 50 mg PO DAILY #30 tabs 03/21/24 04/29/24 Rx Laboratory Tests 05/02/24 05/02/24 09:30 09:46 POC Capillary Glucose 121 H mg/dl (65-105) Digoxin 0.7 L ng/mL (0.8-2.0) Patient hx anesthesia problems: none Family hx anesthesia problems: none Results Review: All pre-operative results and documents have been reviewed as part of the pre-operative evaluation. [facility] Past Medical History Medical History (Updated 04/25/24 @ 10:10 by Jayne Keane MD) Diabetes GERD (gastroesophageal reflux disease) History of bladder cancer (~03/2018) non-invasive low-grade papillary urothelial carcinoma HLD (hyperlipidemia) HTN (hypertension) Ureteral calculus (~03/2018) Surgical History Surgical History (Updated 04/25/24 @ 09:37 by Marissa Berman MA) History of cholecystectomy (2010) Open History of lumbar surgery 2005, decompression History of orthopedic surgery L total knee replacement 11/2022 History of vein stripping Family History Family History Father Acute myocardial infarction Cerebrovascular accident Mother Alzheimer's dementia Social History Social History Smoking status: Never smoker Second hand tobacco smoke exposure: No Alcohol intake: never Substance use: never Substance use type: does not use Do You Feel Safe in your Home?: Yes Lack of Transportation: No Lack of Food: Never True Current Housing: I Have Housing Concerned About Future Housing: No Difficulty Paying Gas/Electric Bills: No Difficulty Paying for Meds: No Currently Unemployed: No Education: High School Diploma/GED
--- NOTE | 2024-05-02 11:47 | W.PM.PROC2 ---
Procedure Note - Detailed Date of Procedure 05/02/24 Pre-op Diagnosis post menopausal bleeding Post-op Diagnosis Same Procedure Performed Hysteroscopy with endometrial sampling Surgeon Jayne Keane MD Anesthesia MAC Findings Stenotic os; mucus noted to be removed after os was dilated. Normal appearing cervix. Normal uterine cavity; thin lining noted. Bilateral tubal ostia visualized. No endometrial masses or abnormalities noted. Endometrial sample obtained using the tissue shaver. Good hemostasis at end of case. Fluid deficit: 30cc. Description of Procedure Evelyn was taken to the operating room where she was placed under sedation without complications. She was then prepped and draped in the usual sterile fashion in the dorsal lithotomy position with her legs in low Jac stirrups. A time-out was performed and no perioperative antibiotics were indicated. A bivalve speculum was placed within the vagina where the cervix was easily identified. The anterior lip of the cervix was grasped with a single-tooth tenaculum. The cervix was then serially dilated to allow for the hysteroscope, it was very stenotic with overlying tissue, but the smallest dilator penetrated though. The hysteroscope was then advanced into the uterine cavity with the above findings noted. Using the [employer] tissue shaver, a sample of the lining was then obtained. Good hemostasis was noted. All instruments were removed from the vagina. Sponge, lap, instrument, and needle counts were correct at the end of the procedure. Patient was awoken from anesthesia and taken to recovery with plans of same-day discharge home. Estimated Blood Loss 5 IV Fluids 600 Pathology Yes (endometrial biopsy) Complications No immediate complications Condition Stable Disposition Same day [facility] Billing Surgery - Charge Forward: Surgery Billing
[2024-05-02 11:50] VITALS: BP 138/66; PULSE 63; RESP 18; O2SAT 100
[2024-05-02 12:20] VITALS: BP 149/60; PULSE 60; RESP 18
[2024-05-02 12:50] VITALS: BP 167/67; PULSE 63; RESP 16
== END 2024-05-02 13:13 | disposition home or self-care (01) ==
PROVIDERS: Anesthesiology; PCP Nurse Practitioner Family; Visit Provider Obstetrics & Gynecology
PROC: 0U5B8ZZ Destruction of Endometrium, Via Natural or Artificial Opening Endoscopic (ICD-10-PCS; CPT 58563; principal; 2024-05-02 10:45)
DX: N95.0 Postmenopausal bleeding (principal); N85.8 Other specified noninflammatory disorders of uterus; E11.9 Type 2 diabetes mellitus without complications; I10 Essential (primary) hypertension; E78.5 Hyperlipidemia, unspecified; K21.9 Gastro-esophageal reflux disease without esophagitis; Z85.51 Personal history of malignant neoplasm of bladder; Z79.82 Long term (current) use of aspirin; Z79.899 Other long term (current) drug therapy
CPT/HCPCS: 58558; 36415; 80162; 82948; 88305; A9270; J2405; J2704; J3010; J7120

== ENCOUNTER 2024-11-15 14:51 | Outpatient (CLI) | payer MEDICARE, SELFPAY ==
[2024-11-15 15:06] LABS: Basophils Absolute Auto 0.1 K/mm3 (0.0-0.1); Basophils Percent Auto 1.1 % (0.2-1.2); Eosinophils Absolute Auto 0.4 K/mm3 (0-0.3); Eosinophils Percent Auto 4.4 % (0-4.4); Hematocrit 36.2 % (37.0-47.0); Hemoglobin 11.9 g/dL (12.0-15.0); Immature Granulocyte Absolute 0.03 K/mm3 (0.00-0.031); Immature Granulocyte Percent A 0.3 % (0-0.5); Lymphocytes Absolute Auto 1.42 K/mm3 (0.9-3.2); Lymphocytes Percent Auto 15.9 % (18.3-44.2); Mean Corpuscular HGB Conc 32.9 g/dl (32-36); Mean Corpuscular Hemoglobin 30.9 pg (26-34); Mean Platelet Volume 9.1 fl (7.4-10.4); Monocytes Absolute Auto 0.8 K/mm3 (0.1-0.6); Monocytes Percent Auto 9.2 % (2.6-8.5); Neutrophils Absolute Auto 6.2 K/mm3 (1.3-6.7); Neutrophils Percent Auto 69.1 % (45.5-73.1); Platelet Count Result 253 k/mm3 (150-375); Red Blood Count 3.85 M/mm3 (4.2-5.4); White Blood Count 8.9 K/mm3 (4.5-10.0)
[2024-11-15 16:31] LABS: Iron 90 ug/dL (37-170)
[2024-11-15 16:35] LABS: Alanine Aminotransferase 12 U/L (6-35); Alkaline Phosphatase 87 U/L (38-126); Anion Gap 9 mmol/L (4-12); Aspartate Amino Transferase 23 U/L (14-36); Bilirubin,Total 0.4 mg/dL (0.2-1.3); Blood Urea Nitrogen 29 mg/dL (7-17); Calcium 9.6 mg/dL (8.4-10.2); Carbon Dioxide 29 mmol/L (22-30); Chloride 99 mmol/L (98-107); Estimated Glomerular Filt Rate > 60; Glucose 153 mg/dL (65-110); Potassium 4.1 mmol/L (3.4-5.0); Sodium 137 mmol/L (137-145)
[2024-11-15 16:43] LABS: Percent Iron Saturation 34 % (20-50)
[2024-11-15 21:31] LABS: Folic Acid > 20.0 ng/mL (2.76->20)
--- OUTSIDE RECORDS SUMMARY | 2024-11-17 19:22 | XMS_ITS | Referral Summary ---
Author Organization [facility] Address [address] [place] [address] Care Team Providers Care Cryptoanalysis Teacher Name Role Phone Arian Menard MD Primary Care Prov ider Allergies No known active allergies Medications DIGOX 125 mcg tablet Take 1 tablet (125 mcg total) by mouth daily with dinner 1 9 Active atorvastatin (LIPITOR) 40 mg tablet Take 1 tablet (40 mg total) by mouth nightly 2 9 Active metFORMIN (GLUCOPHAGE) 500 mg tabletIndicatio ns:type 2 diabetes mellitus Take 1 tablet (500 mg total) by mouth daily with dinner Active blood glucose diagnostic (FreeStyle Lite Strips) strip FreeStyle Lite Strips TEST ONCE DAILY Active benazepriL (LOTENSIN) 20 mg tablet Take 1 tablet (20 mg total) by mouth every morning Active pantoprazole DR (PROTONIX) 40 mg EC tablet Take 1 tablet (40 mg total) by mouth daily with dinner Active amLODIPine (NORVASC) 5 mg tablet Take 1 tablet (5 mg total) by mouth every morning 2 Active donepeziL (ARICEPT) 10 mg tablet Take 1 tablet (10 mg total) by mouth nightly at bedtime 3 Active CALCIUM ORAL Take by mouth every morning Active MAGNESIUM ORAL Take by mouth nightly Active diphenhydramine HCl (BENADRYL ALLERGY ORAL) Take 25 mg by mouth nightly 1/2 tab Active fluticasone propionate (FLONASE) 50 mcg/actuation nasal spray Administer 1 spray into each nostril as needed for rhinitis Active calcium carbonate (TUMS ORAL) Take by mouth as needed Active aspirin 81 mg enteric coated tabletIndicatio ns:Deep Vein Thrombosis Prevention Take 1 tablet (81 mg total) by mouth 2 (two) times a day 60 tablet 3 Active meloxicam (MOBIC) 7.5 mg tabletIndicatio ns:Pain Take 1 tablet (7.5 mg total) by mouth daily 30 tablet 3 Active acetaminophen (Acetaminophen Extra Strength) 500 mg tablet 2 tablet EVERY 8 HOURS (route: oral) 3 Active cefdinir (OMNICEF) 300 mg capsule Take 1 capsule (300 mg total) by mouth every 12 (twelve) hours 3 Active ciprofloxacin (CIPRO) 500 mg tablet Take 1 tablet (500 mg total) by mouth 2 (two) times a day 3 Active Active Problems Problem Noted Date Diagnosed Date Osteoarthritis of left knee, unspecified osteoarthritis type 12/11/2022 Hypertension 11/27/2022 Hyperlipidemia 11/27/2022 PSVT (paroxysmal supraventricular tachycardia) 0 11/27/2022 PVC's (premature ventricular contractions) 11/27 Type 2 diabetes mellitus 11/27/2022 Primary osteoarthritis of left knee 08/12/2022 Overview (08/12/2022): Added automatically from request for surgery [id number] Left upper quadrant pain 08/31/2019 Overview (08/31/2019): Added automatically from request for surgery [id number] Nausea and vomiting 08/31/2019 Overview (08/31/2019): Added automatically from request for surgery [id number] Abnormal weight loss 08/31/2019 Overview (08/31/2019): Added automatically from request for surgery [id number] Positive occult stool blood test 05/24/2019 Overview (05/24/2019): Added automatically from request for surgery [id number] Social History Tobacco Use Types Packs/Day Years Used Date Smoking Tobacco: Never Smokeless Tobacco: Never Tobacco Cessation:Counseling Given: Not Answered AUDIT-C Answer Date Recorded Q1: How often do you have a drink containing alcohol? Never 12/11/2022 Q2: How many drinks containi ng alcohol do you have on a typical day when you are drinking? Patient does not drink Frequency of Binge Drinking Not on file 11/26 Personal Safety Answer Date Recorded Getting School Help Needed Denies 10/06 Comments No Sex and Gender Information Value Date Recorded Sex Assigned at Not on file Legal Sex Female 7:18 PM CONCESSION ATTENDANT Gender Identity Not on file Sexual Orientation Not on file Last Filed Vital Signs Vital Sign Reading Time Taken Comments Blood Pressure 145/71 12/12/2022 8:10 AM CONCESSION ATTENDANT Pulse 75 12/12/2022 8:10 AM CONCESSION ATTENDANT Temperature 36.3 ??C (97.4 ??F) 12/12/2022 8:10 AM CS T Respiratory Rate 16 12/12/2022 8:10 AM CONCESSION ATTENDANT Oxygen Saturation 98% 12/12/2022 8:10 AM CONCESSION ATTENDANT Inhaled Oxygen Concentration - - Weight 51.6 kg (113 lb 12.8 oz) 12/11/2022 9:36 AM CONCESSION ATTENDANT Height 157.5 cm (5' 2 ) 12/11/2022 9:36 AM CONCESSION ATTENDANT Body Mass Index 20.81 12/11/2022 9:36 AM CONCESSION ATTENDANT Plan of Treatment Not on file Medical Devices Implanted Type Area Atomizer Assembler Device Identifier Shelf Expiration Date Model / Serial / Lot [employer] Smartset Medium Viscosity Cement 40gm Bone Sterile 3122-040 - Sna - [id number] Implanted:Qty: 1 on 12/11/2022 by Hussein Zarate MD at [facility] Bone Cement Left: Knee [employer] 05/25/2024 3122-040 / NA / [id number] [employer] Smartset Medium Viscosity Cement 40gm Bone Gentamicin [id number] - Sna - [id number] Implanted:Qty: 1 on 12/11/2022 by Hussein Zarate MD at [facility] Bone Cement Left: Knee [employer] 04/24/2024 [id number] / NA / [id number] [employer] Attune S+ Cement Fix Bearing Knee 4 Baseplate Tibial [id number] - [id number] Implanted:Qty: 1 on 12/11/2022 by Hussein Zarate MD at [facility] Other - see comments Left: Knee [employer] [id number] 08/25/2032 [id number] / / [id number] [employer] Attune Cemented Cruciate Retaining Knee Left 4 Component Femoral [id number] - [id number] Implanted:Qty: 1 on 12/11/2022 by Hussein Zarate MD at [facility] Other - see comments Left: Knee [employer] 09/24/2031 [id number] / / [id number] [employer] Insert Tibial Knee Fixed Lm Posterior Stabilized Attune 5mm Size 4 Polyethylene [id number] - [id number] Implanted:Qty: 1 on 12/11/2022 by Hussein Zarate MD at [facility] Other - see comments Left: Knee [employer] 09/24/2030 [id number] / / [id number] Procedures Procedure Name Priority Date/Time Associated Diagnosis Comments EGFR Routine 11/19/2022 12:05 PM CONCESSION ATTENDANT Primary osteoarthritis of left knee HEMOGLOBIN A1C Routine 11/19/2022 12:05 PM CONCESSION ATTENDANT Primary osteoarthritis of left knee from Last 3 Months or Most Recently Relevant to Health Maintenance Results * eGFR (11/19/2022 12:05 PM CONCESSION ATTENDANT) [facility] eGFR 77 mL/min/1. 73 m2 [facility] Comment: Interpretive Data Reference Interval Normal ?>/= 90 mL/min/1.73m2 Mildly decreased* ? 60 - 89 mL/min/1.73m2 Mildly to moderately decreased ?45 - 59 mL/min/1.73m2 Moderately to severely decreased ??30 - 44 mL/min/1.73m2 Severely decreased ?15 - 29 mL/min/1.73m2 Kidney Failure ?< 15 ??mL/min/1.73m2 *Relative to young adult level Estimated glomerular filtration rate is determined by the 2020 CKD-EPI equation recommended by the National Kidney Foundation (A Unifying Approach to GFR Estimation: Recommendations of the NKF-ASK Task Force on Reassessing the Inclusion of Race in Diagnosing Kidney Disease, JASN 202). The CKD-EPI equation should not be used for patients with unstable renal function and has not been validated in children and those over 70. Current interpretive data was last reviewed 2021. Blood 11/19/2022 12:0 5 PM CONCESSION ATTENDANT 11/19/2022 12:25 PM CONCESSION ATTENDANT Hussein Zarate MD LAB BLOOD ORDERABLES Corin l Result Performing Organization Address [facility] de Phone Number [facility] [id number] [place] [address] * (ABNORMAL) Hemoglobin A1c (11/19/2022 12:05 PM CONCESSION ATTENDANT) Hgb A1C 5.8(H) 4.0 - 5.6 % [facility] Estimated Average Glucose 120 mg/dL [facility] SIM[facility]ON Comment: The ADA recommends reporting an estimated Average Glucose (eAG) with all Hemoglobin A1c results using the equation derived from a study of 507 normal and diabetic adults. ??Minority populations were underrepresented and children were not included. ?? (Diabetes Care 31:1307-4292, 2008). ??The eAG is not equivalent to a fasting glucose. Blood 11/19/2022 12:0 5 PM CONCESSION ATTENDANT 11/19/2022 12:25 PM CONCESSION ATTENDANT Hussein Zarate MD LAB BLOOD ORDERABLES Corin l Result Performing Organization Address [facility] Co de Phone Number [facility] [address] [place] [address] from Last 3 Months or Most Recently Relevant to Health Maintenance Insurance COMMERCIAL GENERIC MEDICARE COMMERCIAL GENERIC MEDICARE [employer] Advance Directives For more information, please contact: [phone] * Full Code (Latest Code Status on File) Date Activated Date Inactivated Comments 12/11/2022 2:36 PM 12/12/2022 3:07 PM * Full Code Date Activated Date Inactivated Comments 09/29/2019 9:24 AM 09/29/2019 3:02 PM * Full Code Date Activated Date Inactivated Comments 09/29/2019 9:24 AM 09/29/2019 9:24 AM Care Teams Cryptoanalysis Teacher Relationship Specialty Start Date End Date Arian Menard MD [address] [place] [address] PCP - General Family Medicine 06/05/21
--- OUTSIDE RECORDS SUMMARY | 2024-11-17 19:22 | XMS_ITS | Patient Health Summary ---
Author Organization [facility] Address [address] [place] [address] Care Team Providers Care Application Development Project Manager Name Role Phone Arian Menard MD Primary Care Provider + Note from [facility],non-owned Affiliates and Associated Physician Practices is amultiple site organization consisting of ambulatory clinics and hospital sitesin [place], [place], [place] and [place]. This disclosure is being madepursuant to the Care Everywhere program and may not contain all information available regarding this patient. Last updated 18.[facility] Allergies No known active allergies Medications * Be aware that medications may not be up to date on this document. Alwaysverify current medications with the patient. * amLODIPine (Norvasc) 5 MG tablet Take 1 (one) tablet by mouth once daily * atorvastatin (Lipitor) 40 MG tablet(Started 05/25/2024) Take 1 (one) tablet by mouth once daily * benazepril (Lotensin) 20 MG tablet Take 1 (one) tablet by mouth once daily * ferrous gluconate 324 (38 Fe) MG tablet Take 1 (one) tablet by mouth 2 times daily * fluticasone propionate (Flonase) 50 MCG/ACT nasal spray SHAKE LIQUID AND USE 2 SPRAYS IN EACH NOSTRIL DAILY NEEDED FOR ALLERGY SYMPTOMS * meloxicam (Mobic) 15 MG tablet(Started 06/09/2024) Take 1 (one) tablet by mouth once daily * metFORMIN (Glucophage) 500 MG tablet Take 1 (one) tablet by mouth once daily * FREESTYLE LITE STRIPS test strip USE TO CHECK BLOOD GLUCOSE ONCE DAILY * oxyBUTYnin CR 24hr (Ditropan-XL) 10 MG tablet Take 1 (one) tablet by mouth once daily * pantoprazole EC (Protonix) 40 MG tablet Take 1 (one) tablet by mouth every morning * sertraline (Zoloft) 50 MG tablet Take 1 (one) tablet by mouth once daily * cephalexin (Keflex) 500 MG capsule(Started 08/31/2024) Take 4 pills (2g) at one time 30-60 minutes prior to Mohs surgery * traMADol (Ultram) 50 MG tablet(Started 09/26/2024) Take 1 tablet every 6-8 hours by oral route as needed. 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 * DE INTMD WND REPAIR TRUNK,ARM,LEG 2.6-7.5(Performed 09/29/2024) Performed for BCC (basal cell carcinoma), back * DE CHMSRG MOHS MG TQ T/A/L 1ST STAG 5 BLOCKS(Performed 09/29/2024) Performed for BCC (basal cell carcinoma), back * DE INTMD WND REPAIR REST BODY 2.6-7.5(Performed 09/15/2024) 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 * DE CHMSRG MOHS MG TQ H/N/H/F/G EA ADDL STAG(Performed 09/15/2024) 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 * DE CHMSRG MOHS MG TQ H/N/H/F/G 1ST STAG 5 BLOC(Performed 09/15/2024) 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 * DE DESTRUCT BENIGN LESION, 1-14(Performed 08/24/2024) Performed for Seborrheic keratosis, inflamed * DE TANGNTL BX SKIN EA SEP ADDL(Performed 08/24/2024) Performed for Neoplasm of uncertain behavior of skin * DE TANGNTL BX SKIN SINGLE LES(Performed 08/24/2024) Performed for Neoplasm of uncertain behavior of skin * DERMATOPATHOLOGY(Performed 08/24/2024) Performed for Neoplasm of uncertain behavior of skin * DERMATOPATHOLOGY(Performed 08/22/2014) * DERMATOPATHOLOGY(Performed 09/09/2012) * PATHOLOGY/GENETICS HISTORICAL-ONBASE(Performed 07/17/2006) Results * DE EXC SKIN MALIG 1.1-2CM TRUNK,ARM,LEG, DE INTMD WND REPAIR TRUNK,ARM,LEG 2.6-7.5 (10/27/2024 2:43PM DRESS SHOE INSPECTOR) Narrative Franki Lopez MD - 10/27/2024 2:43 PM DRESS SHOE INSPECTOR Franki Lopez MD ? 10/27/2024 ??2:50 PM Elliptical Excision with Intermediate Closure Date of Service: 10/27/2024 Tumor Type: Squamous Cell Carcinoma In Situ Location: Central Chest Derm-Path Lesion Size: 1.2 x 1.0 cm Repair Type: intermediate Repair Size: 4.5 cm Suture Material: 3-0 monocryl, 4-0 monocryl Level of Defect: adipose Surgical Margins: 0.4 Primary Surgeon: Franki Lopez MD Student Admissions Clerk: Jovani Hancock MD INDICATIONS: The risks of bleeding, infection, discomfort, incomplete removal, and scar formation were explained to the patient. All questions were answered. After informed consent, confirmation of site and identity, and appropriate instructions, the patient underwent the procedure as follows: PROCEDURE: With the patient in a supine position, the lesion was outlined with 0.4 cm margins measuring 1.8 ??x 2.0 cm. An ellipse was designed around the lesion to conform to relaxed skin tension lines in an effort to minimize scarring and deformity. The patient was then positioned on the table. The lesion and surrounding skin were prepped with chlorhexidine, draped, and anesthetized with 1% lidocaine with epinephrine 1:100,100 buffered with 1:10 sodium bicarbonate. Using a #15 blade the skin was excised along premarked lines. The resulting defect extended to adipose. Wound margins were undermined to limit functional deformity/impairment of adjacent structures. Bleeding vessels were controlled with ??monopolar electrocoagulation. The dermis and subcutaneous tissue were closed with buried vertical mattress sutures. Epidermal approximation was meticulously refined with running subcuticular sutures, resulting in a linear closure with little to no wound tension. Blood loss was estimated to be less than 5cc. The area was coated with petrolatum and covered with a non-adherent dressing followed by gauze and tape. Postoperative instructions were reviewed per protocol. The patient left alert and fully oriented. The attending physician was present and always immediately available. No postoperative medications were prescribed. The patient will follow up with their primary district administrative assistant. Jovani Hancock MD Mohs MSDO Fellow, PGY5 A procedure was performed. I was present for the conte portions of the procedure and was always immediately available. I have reviewed the note and edited it as necessary. Date of Service : 10/27/2024 Franki Lopez MD Franki Lopez MD PROCEDURE/MINOR SURG ICAL ORDERABLES * DERMATOPATHOLOGY (Specimen Count = 1) (10/27/2024 3:33 AM DRESS SHOE INSPECTOR) Only the most recent of4 resultswithin the time period is included. Case Report Dermatopathology Report ? Case: [id number] ? Authorizing Provider: ??Franki Lopez MD ?Collected: ? 10/27/2024 03:33 AM ? Ordering Location: ? [facility] - ??Received: ?10/27/2024 03:08 PM ? Dermatology ? Pathologist: ? Lyndsay Orta MD ? Specimen: ?Skin, central chest ? 12:55 PM [facility] DERMATOPATHOLOGY [facility] Final Diagnosis Specimen A. 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 Check margins. 12:55 PM [facility]MAT[facility] Gross Description Specimen A: Received is one formalin filled container labeled with the patient's name and designated central chest. The specimen consists of a non-oriented ellipse of skin measuring [id number] mm. The margin is inked green. The 12 o'clock and 6 o'clock tips are submitted in cassette 1. The remainder of the ellipse is serially sectioned and submitted in cassette 2-3. Jar 0. 12:55 PM [facility] DERMATOPATHOLOGY [facility] Microscopic Description Specimen A. SKIN, central chest: The epidermis shows parakeratosis, full thickness disorderly maturation of keratinocytes, mitoses at different levels, and dyskeratotic cells. This lesion is not present at the margin of the specimen. There are fibroblasts and collagen bundles oriented parallel to the skin surface with elongated blood vessels, some of which are oriented perpendicular to the skin surface. 12:55 PM [facility] DERMATOPATH[facility] Disclaimer An external and internal positive and negative controls are appropriate for the histochemical, immunohistochemical and immunofluorescence stain(s) in this case (if any), except where stated explicitly. The performance characteristics of the stain(s) cited in this report were developed and its performance characteristic determined by the Dermatopathology Laboratory at [facility], directed by Dr. Uche Fishman. These tests need not be, and therefore are not, approved by the [place] Food and Drug Administration. The tests are used for clinical purposes. Billing Codes Specimen Charges Stain Charges 07547 1 12:55 PM [facility] Embedded Images 12:55 PM [facility]MAT[facility] Pathology/Cytolo gy TISSUE SPECIMEN FROM SKIN / Unknown 10/27/2024 3:33 AM DRESS SHOE INSPECTOR 10/27/2024 3:08 PM DRESS SHOE INSPECTOR Franki Lopez MD LAB - PATHOLOGY/CYTO LOGY ORDERABLES DERMATOPATHOLOGY LABORATORY [facility] - Department of Dermatology [address], [address] [phone] * DE CHMSRG MOHS MG TQ T/A/L 1ST STAG 5 BLOCKS, DE INTMD WND REPAIR TRUNK,ARM,LEG 2.6-7.5 (49:19 AM DRESS SHOE INSPECTOR) Narrative Franki Lopez MD - 09/29/2024 9:19 AM DRESS SHOE INSPECTOR Franki Lopez MD ? 09/29/2024 ??9:25 AM Mohs Micrographic Surgery Operative Note Procedure: Mohs micrographic surgery Date of service: 09/29/2024 Location: Right mid back Preop diagnosis: Basal cell carcinoma, infiltrative subtype Postop diagnosis: Same Mohs AUC score: 7 Number of stages: 1 Preop size: 1.2 x 1.2 cm Postop size: 2.3 x 2.0 cm Depth of final defect: adipose Previous dermpath accession #: [id number] Repair type: intermediate Mohs accession #: [id number] Surgeon and Pathologist: Franki Lopez MD served as both surgeon and pathologist. No other physician was involved in the cancer removal or pathology interpretation. Assistants: Jovani Hancock MD Indications for Mohs Surgery Removal of the patient's tumor is complicated by the following clinical features: aggressive pattern on initial pathology, poorly-defined clinical tumor borders. Based on my medical judgement, Mohs surgery is the most appropriate treatment for this cancer compared to other treatments. I discussed alternative treatments to Mohs surgery and specifically discussed the risks and benefits of curettage, excision with permanent sections, and foregoing treatment. The rationale for Mohs was explained to the patient and consent was obtained. The risks, benefits and alternatives to therapy were discussed in detail. Specifically, the risks of infection, scarring, bleeding, prolonged wound healing, incomplete removal, allergy to anesthesia, nerve injury and recurrence were addressed. Prior to the procedure, the treatment site was clearly identified and confirmed by the patient. All components of [employer] Protocol/PAUSE Rule completed. STAGE I: The patient was placed on the operating table. The cancer was identified and outlined. The entire surgical field was prepped with hibiclens. The surgical site was anesthetized using Lidocaine 1% with epinephrine 1:100,000 buffered with sodium bicarbonate 8.4% in a 1:10 ratio.The area of clinically apparent tumor was debulked with a 4 mm curette. The layer of tissue was then surgically excised using a #15 blade and was then transferred onto a specimen sheet maintaining the orientation of the specimen. Hemostasis was obtained using monopolar electrodesiccation. The wound site was then covered with a dressing while the tissue samples were processed for examination. The specimen was oriented, mapped and divided. Each section was then inked and processed in the Mohs lab using the Mohs protocol and submitted for frozen section. The histopathologic sections were reviewed by the surgeon in conjunction with the reference map. Total blocks: 1 Total slides: 3 Frozen sections were examined by the surgeon. No additional tumor was identified. No additional histologic findings appreciated. Cell morphology: N/A. No tumor seen at the margin. Pathological pattern: N/A. No tumor seen. Depth of invasion: N/A. No tumor seen. Scar tissue: Not Present Perineural invasion: Not Present Inflammation obscuring possible tumor presence: Not Present [facility] CLIA # [id number] Mohs laboratory sample carrier: Marcelina Ureña MD REPAIR: Intermediate Primary Surgeon: Franki Lopez MD Student Admissions Clerk: Jovani Hancock MD Repair Size: 5.5 cm Sutures: 4-0 monocryl, 3-0 PDS The defect was identified and a marking pen was used to plan the repair. The area was infiltrated with Lidocaine 1% with epinephrine 1:100,000 buffered with sodium bicarbonate 8.4% in a 1:10 ratio, prepped with hibiclens and draped with sterile towels. The wound was debeveled and undermined widely. Cones were excised within relaxed skin tension lines on both sides of the defect. Hemostasis was obtained using monopolar electrodesiccation. The dermis and subcutaneous tissue were then approximated using buried vertical mattress sutures. Percutaneous running subcuticular sutures were carefully placed for maximum eversion and meticulous wound edge approximation. Careful attention was paid to avoid distorting any nearby free margins. The wound was cleansed with saline and ointment was applied along the wound surface. A sterile pressure dressing was applied. Wound care instructions were given verbally and in writing. The patient left the operating suite in stable condition. Patient was informed that additional refinement of the resulting surgical scar may be used as a second stage of this reconstruction. No postoperative medications were prescribed. The patient will follow up with their primary district administrative assistant. Jovani Hancock MD Mohs MSDO Fellow, PGY5 A procedure was performed. I was present for the conte portions of the procedure and was always immediately available. I have reviewed the note and edited it as necessary. Date of Service : 09/29/2024 Franki Lopez MD Franki Lopez MD PROCEDURE/MINOR SURG ICAL ORDERABLES * DE CHMSRG MOHS MG TQ H/N/H/F/G 1ST STAG 5 BLOC, DE CHMSRG MOHS MG TQ H/N/H/F/G EA ADDL STAG, DE INTMD WND REPAIR REST BODY 2.6-7.5 (09/15/2024 1:19 PM DRESS SHOE INSPECTOR) Narrative Franki Lopez MD - 09/15/2024 1:19 PM DRESS SHOE INSPECTOR Franki Lopez MD ? 09/15/2024 ??2:38 PM Mohs Micrographic Surgery Operative Note Procedure: Mohs micrographic surgery Date of service: 09/15/2024 Location: Right neck Preop diagnosis: Squamous cell carcinoma in situ Postop diagnosis: Squamous cell carcinoma in situ Mohs AUC score: 8 Number of stages: 2 Preop size: 1.5 x 1.0 cm Postop size: 3.7 x 2.6 cm Depth of final defect: adipose Previous dermpath accession #: [id number] Repair type: intermediate Mohs accession #: [id number] Surgeon and Pathologist: Franki Lopez MD served as both surgeon and pathologist. No other physician was involved in the cancer removal or pathology interpretation. Assistants: Jovani Hancock MD Indications for Mohs Surgery Removal of the patient's tumor is complicated by the following clinical features: Clinical area critical for tissue conservation (Area M: cheeks, forehead, scalp, neck, jawline, pretibial surface). Based on my medical judgement, Mohs surgery is the most appropriate treatment for this cancer compared to other treatments. I discussed alternative treatments to Mohs surgery and specifically discussed the risks and benefits of curettage, excision with permanent sections, and foregoing treatment. The rationale for Mohs was explained to the patient and consent was obtained. The risks, benefits and alternatives to therapy were discussed in detail. Specifically, the risks of infection, scarring, bleeding, prolonged wound healing, incomplete removal, allergy to anesthesia, nerve injury and recurrence were addressed. Prior to the procedure, the treatment site was clearly identified and confirmed by the patient. All components of [employer] Protocol/PAUSE Rule completed. STAGE I: The patient was placed on the operating table. The cancer was identified and outlined. The entire surgical field was prepped with hibiclens. The surgical site was anesthetized using Lidocaine 1% with epinephrine 1:100,000 buffered with sodium bicarbonate 8.4% in a 1:10 ratio.The area of clinically apparent tumor was debulked with a 2 mm curette. The layer of tissue was then surgically excised using a #15 blade and was then transferred onto a specimen sheet maintaining the orientation of the specimen. Hemostasis was obtained using monopolar electrodesiccation. The wound site was then covered with a dressing while the tissue samples were processed for examination. The specimen was oriented, mapped and divided. Each section was then inked and processed in the Mohs lab using the Mohs protocol and submitted for frozen section. The histopathologic sections were reviewed by the surgeon in conjunction with the reference map. Total blocks: 1 Total slides: 2 Frozen sections were examined by the surgeon and revealed residual tumor. Tumor was indicated in red on the reference map. Cell morphology: full thickness epidermal squamous cell atypia with cellular pleomorphism (SCCis) Pathological pattern: Squamous cell carcinoma in situ Depth of invasion: Epidermis Scar tissue: Not Present Perineural invasion: Not Present Inflammation obscuring possible tumor presence: Not Present STAGE II: The patient was prepped in the same fashion as the first stage. Using a similar technique to that described above, a thin layer of tissue was removed from all areas where tumor was visible on the previous stage. The tissue was again oriented, mapped, dyed, and processed as above. Histopathologic sections were reviewed in conjunction with the reference map. Total blocks: 1 Total slides: 3 Frozen sections were examined by the surgeon and revealed: No additional tumor. Histology: No malignant cells seen in the sections examined. No additional histologic findings appreciated. [facility] CLIA # [id number] [facility] Soda Maker: Marcelina Ureña MD REPAIR: Intermediate Primary Surgeon: Franki Lopez MD Student Admissions Clerk: Jovani Hancock MD Repair Size: 6.0 cm Sutures: 4-0 monocryl, 5-0 fast absorbing gut The defect was identified and a marking pen was used to plan the repair. The area was infiltrated with Lidocaine 1% with epinephrine 1:100,000 buffered with sodium bicarbonate 8.4% in a 1:10 ratio, prepped with hibiclens and draped with sterile towels. The wound was debeveled and undermined widely. Cones were excised within relaxed skin tension lines on both sides of the defect. Hemostasis was obtained using monopolar electrodesiccation. The dermis and subcutaneous tissue were then approximated using buried vertical mattress sutures. Percutaneous simple running sutures were carefully placed for maximum eversion and meticulous wound edge approximation. Careful attention was paid to avoid distorting any nearby free margins. The wound was cleansed with saline and ointment was applied along the wound surface. A sterile pressure dressing was applied. Wound care instructions were given verbally and in writing. The patient left the operating suite in stable condition. Patient was informed that additional refinement of the resulting surgical scar may be used as a second stage of this reconstruction. No postoperative medications were prescribed. The patient will follow up in 2 week(s) for a wound check. Jovani Hancock MD [facility] MSDO Fellow, PGY5 A procedure was performed. I was present for the conte portions of the procedure and was always immediately available. I have reviewed the note and edited it as necessary. Date of Service : 09/15/2024 Franki Lopez MD Franki Lopez MD PROCEDURE/MINOR SURG ICAL ORDERABLES * DE DESTRUCT BENIGN LESION, 1-14 (08/24/2024 10:59 AM CDT) Narrative Franki Lopez MD - 08/24/2024 10:59 AM CDT Rony Loya MD ? 08/24/2024 10:59 AM Diagnosis and treatment options discussed. Cryotherapy (Liquid Nitrogen) to 2 lesions for 10 seconds each. Number of cycles: 1. Wound care reviewed. Franki Lopez MD PROCEDURE/MINOR SURG ICAL ORDERABLES * DE TANGNTL BX SKIN SINGLE LES, DE TANGNTL BX SKIN EA SEP ADDL (08/24/2024 10:58 AM CDT) Franki Walsh MD - 08/24/2024 10:58 AM CDT Rony Loya MD ? 08/24/2024 10:58 AM Risks, benefits and alternatives to shave biopsy were discussed with the patient. Verbal consent obtained. Location: R mid back, R lateral neck, central chest Skin prep: Alcohol Anesthesia: 1% lidocaine with epinephrine Hemostasis: Aluminum Chloride Dressing and wound care discussed. Patient agrees to phone call for results and message if not available. Rony Loya MD Dermatology Resident PGY-3 Franki Lopez MD PROCEDURE/MINOR SURG ICAL ORDERABLES * PATHOLOGY/GENETICS HISTORICAL-ONBASE (07/17/2006) 07/17/2006 Narrative [facility] - 09/07/2012 10:27 AM DRESS SHOE INSPECTOR Historical Provider LAB - CHEMISTRY O RDERABLES [facility] [address] [place] [address], [facility] Care Teams Application Development Project Manager Relationship Specialty Start Date End Date Arian Menard MD [address] [facility] [address] [place] [address] PCP - General 03/30/18
--- OUTSIDE RECORDS SUMMARY | 2024-11-17 19:22 | XMS_ITS | Clinical Summary ---
Author Organization [facility] [place] Address [address] [place] [address] Care Team Providers Care Wall Worker Name Role Phone Arian Menard MD Primary [...] (08/12/2022): Added automatically from request for surgery [id number] Left upper quadrant pain 08/31/2019 Overview (08/31/2019): Added automatically from request for surgery [id number] Nausea and vomiting 08/31/2019 Overview (08/31/2019): Added automatically from request for surgery [id number] Abnormal weight loss 08/31/2019 Overview (08/31/2019): Added automatically from request for surgery [id number] Positive occult stool blood test 05/24/2019 Overview (05/24/2019): Added automatically from request for surgery [id number] Surgical History Surgery Date Site/Laterality Comments COLONOSCOPY 06/02/2013 BACK SURGERY 10/26/2005 - 10/25/2006 CHOLECYSTECTOMY 10/26/2010 - 10/25/2011 UPPER GASTROINTESTINAL ENDOSCOPY ESOPHAGEAL DILATION x2 CATARACT EXTRACTION VEIN LIGATION AND STRIPPING 10/26/1989 - 10/25/1990 Left Medical History Medical History Date Comments Hx Other Medical 2011 gallbladder; Co mments: [facility] 11/21/2014 - Hypertension Atrial fibrillation (CMS/HCC) (HCC) Hyperlipidemia Type 2 diabetes mellitus (HCC) Kidney stone Jensen esophagus Osteoarthritis Family History Medical History Relation Name Comments Heart disease Father Heart disease; Hypertension Mother Hypertension; Colon cancer Paternal Grandfather Relation Name Status Comments Father Mother (Age 80) Paternal Grandfather Social History Tobacco Use Types Packs/Day Years [...] on file Legal Sex Female 7:18 PM KNIFE BLADE [employer] Gender Identity Not on file Sexual Orientation Not on file Obstetrics History Last Filed Vital Signs Vital Sign Reading Time Taken Comments Blood Pressure 145/71 12/12/2022 8:10 AM KNIFE BLADE POLISHER Pulse 75 12/12/2022 8:10 AM KNIFE BLADE POLISHER Temperature 36.3 ??C (97.4 ??F) 12/12/2022 8:10 AM CS T Respiratory Rate 16 12/12/2022 8:10 AM KNIFE BLADE POLISHER Oxygen Saturation 98% 12/12/2022 8:10 AM KNIFE BLADE POLISHER Inhaled Oxygen Concentration - - Weight 51.6 kg (113 lb 12.8 oz) 12/11/2022 9:36 AM KNIFE BLADE POLISHER Height 157.5 cm (5' 2 ) 12/11/2022 9:36 AM KNIFE BLADE POLISHER Body Mass Index 20.81 12/11/2022 9:36 AM KNIFE BLADE POLISHER Plan of Treatment Health Maintenance Due Date Last Done Comments Albumin Creatinine Ratio, Urine 1943 Depression Screening 1943 Osteoporosis Screening-Bone Density Scan 1943 Dilated Eye Exam 1943 Foot Exam 1943 Lipid Panel 1943 Hepatitis B Screening 1961 Well Visit 65+ 01/28/2008 Pneumococcal vaccine 65+ (2 of 2 - PPSV23 or PCV20) 10/04/2014 08/09/2014 DTaP/Tdap/Td Vaccine (2 - Td or Tdap) 08/17/2022 08/17/2012 Hemoglobin A1C 05/19/2023 11/19/2022 eGFR 11/19/2023 11/19/2022 Fall Risk Assessment 12/12/2023 12/12/2022 Influenza Vaccine (#1) 2024 , 07/16/2019, 07/18/2018, Additional history exists Zoster Vaccine Completed 07/16/2019, 05/05/2019 Medical Devices Implanted Type Area Egg Worker Device Identifier Shelf Expiration Date Model / Serial / Lot [employer] Smartset Medium Viscosity Cement 40gm Bone Sterile 3122-040 - Sna - [id number] Implanted:Qty: 1 on 12/11/2022 by Hussein Zarate MD at [facility] Bone Cement Left: Knee [employer] 05/25/2024 3122-040 / NA / [id number] [employer] Smartset Medium Viscosity Cement 40gm Bone Gentamicin [id number] - Sna - [id number] Implanted:Qty: 1 on 12/11/2022 by Hussein Zarate MD at [facility] Bone Cement Left: Knee [employer] 04/24/2024 [id number] / NA / [id number] [employer] Attune S+ Cement Fix Bearing Knee 4 Baseplate Tibial [id number] - [id number] Implanted:Qty: 1 on 12/11/2022 by Hussein Zarate MD at [facility] Other - see comments Left: Knee [employer] [id number] 08/25/2032 [id number] / / [id number] [employer] Attune Cemented Cruciate Retaining Knee Left 4 Component Femoral [id number] - [id number] Implanted:Qty: 1 on 12/11/2022 by Hussein Zarate MD at [facility] Other - see comments Left: Knee [employer] 09/24/2031 [id number] / / [id number] [employer] Insert Tibial Knee Fixed Lm Posterior Stabilized Attune 5mm Size 4 Polyethylene [id number] - [id number] Implanted:Qty: 1 on 12/11/2022 by Hussein Zarate MD at [facility] Other - see comments Left: Knee [employer] 09/24/2030 [id number] / / [id number] Procedures Procedure Name Priority Date/Time Associated Diagnosis Comments EGFR Routine 11/19/2022 12:05 PM KNIFE BLADE POLISHER Primary osteoarthritis of left knee HEMOGLOBIN A1C Routine 11/19/2022 12:05 PM KNIFE BLADE POLISHER Primary osteoarthritis of left knee from Last 3 Months or Most Recently Relevant to Health Maintenance Results * eGFR (11/19/2022 12:05 PM KNIFE BLADE POLISHER) Pathologist [facility] eGFR 77 mL/min/1. 73 m2 ARNOLD [...] reviewed 2021. Blood 11/19/2022 12:0 5 PM KNIFE BLADE POLISHER 11/19/2022 12:25 PM KNIFE BLADE POLISHER Hussein Zarate MD LAB BLOOD ORDERABLES Corin l Result Performing Organization Address [facility] Co de Phone Number ARNOLD BARRIOSCH [address] [facility] Department of [employer] [place] [address] * (ABNORMAL) Hemoglobin A1c (11/19/2022 12:05 PM KNIFE BLADE POLISHER) Hgb A1C 5.8(H) 4.0 - 5.6 % ARNOLD SIMPSON Estimated Average Glucose 120 mg/dL ARNOLD SIMPSON Comment: The ADA recommends reporting an estimated Average Glucose (eAG) with all Hemoglobin A1c results using the equation derived from a study of 507 normal and diabetic adults. ??Minority populations were underrepresented and children were not included. ?? (Diabetes Care 31:9688-1220, 2007). ??The eAG is not equivalent to a fasting glucose. Blood 11/19/2022 12:0 5 PM KNIFE BLADE POLISHER 11/19/2022 12:25 PM KNIFE BLADE POLISHER Hussein Zarate MD LAB BLOOD ORDERABLES Corin l Result Performing Organization Address [facility] de Phone Number ARNOLD BARRIOSWCH [address] [facility] [employer] [place] [address] from Last 3 Months or Most Recently Relevant to Health Maintenance Insurance MEDICARE COMMERCIAL GENERIC COMMERCIAL GENERIC MEDICARE [place] [employer] Advance Directives For more information, please contact: [phone] * Full Code (Latest Code Status on File) Date Activated Date Inactivated Comments 12/11/2022 2:36 PM 12/12/2022 3:07 PM * Full Code Date Activated Date Inactivated Comments 09/29/2019 9:24 AM 09/29/2019 3:02 PM * Full Code Date Activated Date Inactivated Comments 09/29/2019 9:24 AM 09/29/2019 9:24 AM Care Teams Wall Worker Relationship Specialty Start Date End Date Arian Menard MD [address] [place] [address] PCP - General Family Medicine 06/05/21
--- OUTSIDE RECORDS SUMMARY | 2024-11-17 19:22 | XMS_ITS | Continuity of Care Document ---
Author Organization [facility] Address [address] [facility] [address] [place] [address] Phone Care Team Providers Care Almond Paste Molder Name Role Phone Gerard Sullivan Unavailable Unavailable [...] Diagnoses Date Provider Providers Copied on Encounter [facility], [address] [place] [address] [address], [place], [place], [id number], [place] tel:[phone] [facility] No Information Oct-0 4-201 0 Laurie Gee. [address] [facility] [place] , [address], [place], [address], [place]. tel:[phone] [facility], [address], [place], [place], [id number], [place] tel:[phone] [facility] [place] No Information Isacc-0 9-200 9 Krishnasamy James. [facility] [address], [place], [place], [facility], [place]. tel:[phone] Office/outpat ient Visit, [facility], [address], [place], [place], [address], [place] tel:[phone] [facility] [place] No Information Nov-1 7-200 8 Krishnasamy James. [facility] [place] [address], [place], [place], [facility], [place]. tel:[phone] Office/outpat ient Visit, [facility], [address] [place] [address] [address], [place], [place], [address], [place] tel:[phone] [facility] [place] No Information Oct-2 0-200 8 Krishnasamy James. [address] [place] [address] [address], [place], [place], [facility], [place]. tel:[phone] [facility], [address], [place], [place], [id number], [place] tel:[phone] [facility] [place] No Information Oct-1 0-200 8 Krishnasamy James. [address] [place] [address] [address], [place], [place], [facility], [place]. tel:[phone] [facility], [address] [place] [address] [address], [place], [place], [address], [place] tel:[phone] [facility] [place] No Information Oct-0 6-200 8 Doisy Edward. [address] [place] [address] Dr, [address], [place], [place], [facility], [place]. tel:[phone] Office/outpat ient Visit, [facility], [address], [place], [place], [address], [place] tel:[phone] [facility] No Information Oct-0 4-200 8 Mireles OD Elvis. [facility] , [address], [place], [place], [facility], [place]. tel:[phone] Office/outpat ient Visit, [facility], [address] [place] [address] [address], [place], [place], [id number], [place] tel:[phone] [facility] No Information Oct-0 2-200 8 Penn Indu. [address] [place], [place] [address]ate Center , [address], [place], [place], [facility], [place]. tel:[phone] Office/outpat ient Visit, [facility], [address] [place] [address] [address], [place], [place], [address], [place] tel:[phone] [facility] [place] No Information Sep-1 6-200 8 Krishnasamy James. [facility] [address], [place], [place], [facility], [place]. tel:[phone] [facility], [address] [place] [address] [address], [place], [place], [address], [place] tel:[phone] [facility] [place] No Information Sep-0 8-200 8 Laurie Gee. [address] [place], [place] [address]ate [place] , [address], [place], [place], [facility], [place]. tel:[phone] Referring Provider: Gerard Rousseau, [address] [place], [place] [address]ate Center [address], [place], [place], [facility]. tel:[phone] [facility] Eye [facility], [address] [place] [address] [address], [place], [place], [address], [place] tel:[phone] [facility] No Information Mar-1 8-200 8 Laurie Gee. [address] [place], [place] [address]ate Center , [address], [place], [place], [facility], [place]. tel:[phone] Referring Provider: Gerard Rousseau [address] [facility] [address], [place], [address]. tel:[phone] [facility], [address], [place], [place], [address], [place] tel:[phone] [facility] No Information Sep- 0-200 7 Laurie Gee. [address] [facility] , [address], [place], [address], [place]. tel:[phone] Family History Family Member Type Diagnosis Age At Onset No Information Payers Payer name Insurance type Covered green party ID Authoriza tion(s) [place] [id number] Social History Type Description Quantity Date Captured [...]
--- OUTSIDE RECORDS SUMMARY | 2024-11-17 19:22 | XMS_ITS | CONTINUITY OF CARE DOCUMENT ---
Author Name eliana monroy Address Unknown Organization [facility] Address [address] [facility] [address] [place] [address] Phone [phone] Care Team Providers Care Utilization Specialist Name Role Phone Jacobo ALONSO, Julian Unavailable DAVID ALONSO, CAMILA Unavailable [phone] DA ALONSO, ELI Unavailable INSURANCE PROVIDERS Payer name Policy type / Coverage type [place] red green party ID [employer] insurance [employer] [id number] [place] [employer] Medicare [id number]
--- OUTSIDE RECORDS SUMMARY | 2024-11-17 19:22 | XMS_ITS | Clinical Summary ---
Author Organization [facility] [employer] Address [address] [place] [address] Care Team Providers Care Grape Crusher Name Role Phone Arian Menard MD Primary Care Provider + Source Comments [facility] [employer],non-owned Affiliates and Associated Physician Practices is amultiple site organization consisting of ambulatory clinics and hospital sitesin [place], [place], [place] and [place]. This disclosure is being madepursuant to the Care Everywhere program and may not contain all information available regarding this patient. Last updated 18.[facility] [employer] Allergies No known active allergies Medications * Be aware that medications may not be up to date on this document. Alwaysverify current medications with the patient. Medication Sig Dispensed Refills Start Date End Date Status amLODIPine (Norvasc) 5 MG tablet Take 1 (one) tablet by mouth once daily Active atorvastatin (Lipitor) 40 MG tablet Take 1 (one) tablet by mouth once daily 05/25/2024 Active benazepril (Lotensin) 20 MG tablet Take 1 (one) tablet by mouth once daily Active ferrous gluconate 324 (38 Fe) MG tablet Take 1 (one) tablet by mouth 2 times daily Active fluticasone propionate (Flonase) 50 MCG/ACT nasal spray SHAKE LIQUID AND USE 2 SPRAYS IN EACH NOSTRIL DAILY NEEDED FOR ALLERGY SYMPTOMS Active meloxicam (Mobic) 15 MG tablet Take 1 (one) tablet by mouth once daily 06/09/2024 Active metFORMIN (Glucophage) 500 MG tablet Take 1 (one) tablet by mouth once daily Active FREESTYLE LITE STRIPS test strip USE TO CHECK BLOOD GLUCOSE ONCE DAILY Active oxyBUTYnin CR 24hr (Ditropan-XL) 10 MG tablet Take 1 (one) tablet by mouth once daily Active pantoprazole EC (Protonix) 40 MG tablet Take 1 (one) tablet by mouth every morning Active sertraline (Zoloft) 50 MG tablet Take 1 (one) tablet by mouth once daily Active cephalexin (Keflex) 500 MG capsuleIndications:H istory of basal cell carcinoma (BCC) of skin Take 4 pills (2g) at one time 30-60 minutes prior to Mohs surgery 12 capsule 08/31/2024 Active traMADol (Ultram) 50 MG tablet Take 1 tablet every 6-8 hours by oral route as needed. 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 10/27/2024 Travel 09/29/2024 7:15 AM MUSIC ADAPTER Procedure visit [facility] - Dermatology [address] [place] [phone] Franki Lopez MD BCC (basal cell carcinoma), back 09/29/2024 Travel 09/15/2024 10:00 AM MUSIC ADAPTER Procedure visit [facility] - Dermatology [address] [place] [phone] Franki Lopez MD 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 09/15/2024 Travel 08/31/2024 Orders Only [facility] - Dermatology [address], [facility] [address] [place] [address] Franki Lopez MD History of basal cell carcinoma (BCC) of skin 08/24/2024 10:00 AM CDT Office Visit [facility] - Dermatology [address] [place] [phone] Franki Lopez MD Alves angioma (Primary Dx); Seborrheic keratoses; Lentigines; Melanocytic nevi of trunk; Seborrheic keratosis, inflamed; History of basal cell carcinoma (BCC) of skin; Neoplasm of uncertain behavior of skin 08/24/2024 Travel from Last 3 Months Social History Tobacco Use Types Packs/Day Years Used Date Smoking Tobacco: Never Assessed Sex and Gender Information Value Date Recorded Sex Assigned at Not on file Gender Identity Not on file Sexual Orientation Not on file Plan of Treatment Health Maintenance Due Date Last Done Comments BONE DENSITY TESTING 1945 MEDICARE AWV ? 12 MONTHS 1945 DTAP/TDAP/TD VACCINES (1 - Tdap) 1962 PNEUMOCOCCAL VACCINE 50+ (1 of 1 - PCV) 1993 ZOSTER VACCINE (1 of 2) 1993 Respiratory Syncytial Virus (RSV) Vaccine Pt: or over 60 yrs (1 - 1-dose 75+ series) 2018 COVID-19 VACCINE (2023-2 5 season) 2024 INFLUENZA VACCINE (#1) 2024 DEPRESSION SCREENING 10/26/2024 HEPATITIS B VACCINE Aged Out No longe r eligible based on patient's age to complete this topic HIB VACCINE Aged Out No longer eligi ble based on patient's age to complete this topic HPV VACCINE Aged Out No longer eligi ble based on patient's age to complete this topic MENINGOCOCCAL (Group B) VACCINE Aged Out No longer eligible based on patient's age to complete this topic MENINGOCOCCAL VACCINE Aged Out No leonela inocencia eligible based on patient's age to complete this topic Procedures Procedure Name Priority Date/Time Associated Diagnosis Comments [place] INTMD WND REPAIR TRUNK,ARM,LEG 2.6-7.5 Routine 10/27/2024 2:43 PM MUSIC ADAPTER 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 WV EXC SKIN MALIG 1.1-2CM TRUNK,ARM,LEG Routine 10/27/2024 2:43 PM MUSIC ADAPTER 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 DERMATOPATHOLOGY Routine 10/27/2024 3:33 AM MUSIC ADAPTER 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 WV INTMD WND REPAIR TRUNK,ARM,LEG 2.6-7.5 Routine 09/29/2024 9:19 AM MUSIC ADAPTER BCC (basal cell carcinoma), back W[place] CHMSRG MOHS MG TQ T/A/L 1ST STAG 5 BLOCKS Routine 09/29/2024 9:19 AM MUSIC ADAPTER BCC (basal cell carcinoma), back WV INTMD WND REPAIR REST BODY 2.6-7.5 Routine 09/15/2024 1:19 PM MUSIC ADAPTER 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 [place] CHMSRG MOHS MG TQ H/N/H/F/G EA ADDL STAG Routine 09/15/2024 1:19 PM MUSIC ADAPTER 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 [place] CHMSRG MOHS MG TQ H/N/H/F/G 1ST STAG 5 BLOC Routine 09/15/2024 1:19 PM MUSIC ADAPTER 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 WV DESTRUCT BENIGN LESION, 1-14 Routine 08/24/2024 10:59 AM CDT Seborrheic keratosis, inflamed WV TANGNTL BX SKIN EA SEP ADDL Routine 08/24/2024 10:58 AM CDT Neoplasm of uncertain behavior of skin WV TANGNTL BX SKIN SINGLE LES Routine 08/24/2024 10:58 AM CDT Neoplasm of uncertain behavior of skin DERMATOPATHOLOGY Routine 08/24/2024 12:0 0 AM CDT Neoplasm of uncertain behavior of skin from Last 3 Months Results * WV EXC SKIN MALIG 1.1-2CM TRUNK,ARM,LEG, WV INTMD WND REPAIR TRUNK,ARM,LEG 2.6-7.5 (10/27/2024 2:43PM MUSIC ADAPTER) Narrative Franki Lopez MD - 10/27/2024 2:43 PM MUSIC ADAPTER Franki Lopez MD ? 10/27/2024 ??2:50 PM Elliptical Excision with Intermediate Closure Date of Service: 10/27/2024 Tumor Type: Squamous Cell Carcinoma In Situ Location: Central Chest Derm-Path Lesion Size: 1.2 x 1.0 cm Repair Type: intermediate Repair Size: 4.5 cm Suture Material: 3-0 monocryl, 4-0 monocryl Level of Defect: adipose Surgical Margins: 0.4 Primary Surgeon: Franki Lopez MD Porcelain Slusher: Jovani Hancock MD INDICATIONS: The risks of [...] patient will follow up with their primary information technology administrator. Jovani Hancock MD Mohs MSDO Fellow, PGY5 A procedure was performed. I was present for the conte portions of the procedure and was always immediately available. I have reviewed the note and edited it as necessary. Date of Service : 10/27/2024 Franki Lopez MD Franki Lopez MD PROCEDURE/MINOR SURG ICAL ORDERABLES * DERMATOPATHOLOGY (Specimen Count = 1) (10/27/2024 3:33 AM MUSIC ADAPTER) Only the most recent of2 resultswithin the time period is included. Case Report Dermatopathology Report ? Case: [id number] ? Authorizing Provider: ??Franki Lopez MD ?Collected: ? 10/27/2024 03:33 AM ? Ordering Location: ? [facility] - ??Received: ?10/27/2024 03:08 PM ? Dermatology ? Pathologist: ? Lyndsay Orta MD ? Specimen: ?Skin, central chest ? 5 12:55 PM MUSIC ADAPTER DERMATOPATHOLOGY LABORATORY Final Diagnosis Specimen A. 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 Check margins. 12:55 PM [facility] DERMATOPATHOLOGY LABORATORY Gross Description Specimen A: Received is one formalin filled container labeled with the patient's name and designated central chest. The specimen consists of a non-oriented ellipse of skin measuring [id number] mm. The margin is inked green. The 12 o'clock and 6 o'clock tips are submitted in cassette 1. The remainder of the ellipse is serially sectioned and submitted in cassette 2-3. Jar 0. 12:55 PM [facility] DERMATOPATHOLOGY LABORATORY Microscopic Description Specimen A. SKIN, [...] perpendicular to the skin surface. 12:55 PM [facility] DERMATOPATHOLOGY LABORATORY Disclaimer An external and internal positive and negative controls are appropriate for the histochemical, immunohistochemical and immunofluorescence stain(s) in this case (if any), except where stated explicitly. The performance characteristics of the stain(s) cited in this report were developed and its performance characteristic determined by the Dermatopathology Laboratory at [facility], directed by Dr. Uche Fishman. These tests need not be, and therefore are not, approved by the [place] Food and Drug Administration. The tests are used for clinical purposes. Billing Codes Specimen Charges Stain Charges 02556 1 12:55 PM [facility] DERMATOPATHOLOGY LABORATORY Embedded Images 12:55 PM [facility] DERMATOPATHOLOGY LABORATORY Pathology/Cytolo gy TISSUE SPECIMEN FROM SKIN / Unknown 10/27/2024 3:33 AM MUSIC ADAPTER 10/27/2024 3:08 PM MUSIC ADAPTER Franki Lopez MD LAB - PATHOLOGY/CYTO LOGY ORDERABLES DERMATOPATHOLOGY LABORATORY [facility] - Department of Dermatology [facility] [address] [place] [address], [facility] [phone] * [place] CHMSRG MOHS MG TQ T/A/L 1ST STAG 5 BLOCKS, W[place] INTMD WND REPAIR TRUNK,ARM,LEG 2.6-7.5 (49:19 AM MUSIC ADAPTER) Narrative Franki Lopez MD - 09/29/2024 9:19 AM MUSIC ADAPTER Franki Lopez MD ? 09/29/2024 ??9:25 AM Mohs Micrographic Surgery Operative Note Procedure: Mohs micrographic surgery Date of service: 09/29/2024 Location: Right mid back Preop diagnosis: Basal cell carcinoma, infiltrative subtype Postop diagnosis: Same Mohs AUC score: 7 Number of stages: 1 Preop size: 1.2 x 1.2 cm Postop size: 2.3 x 2.0 cm Depth of final defect: adipose Previous dermpath accession #: [id number] Repair type: intermediate Mohs accession #: [id number] [...] confirmed by the patient. All components of [place] Protocol/PAUSE Rule completed. STAGE I: The patient [...] Inflammation obscuring possible tumor presence: Not Present [facility] CLIA # [id number] Mohs laboratory development technician: Marcelina Ureña MD REPAIR: Intermediate Primary Surgeon: Franki Lopez MD Porcelain Slusher: Jovani Hancock MD Repair Size: 5.5 cm [...] patient will follow up with their primary information technology administrator. Jovani Hancock MD Mohs MSDO Fellow, PGY5 A procedure was performed. I was present for the conte portions of the procedure and was always immediately available. I have reviewed the note and edited it as necessary. Date of Service : 09/29/2024 Franki Lopez MD Franki Lopez MD PROCEDURE/MINOR SURG ICAL ORDERABLES * [place] CHMSRG MOHS MG TQ H/N/H/F/G 1ST STAG 5 BLOC, [place] CHMSRG MOHS MG TQ H/N/H/F/G EA ADDL STAG, [place] INTMD WND REPAIR REST BODY 2.6-7.5 (09/15/2024 1:19 PM MUSIC ADAPTER) Narrative Franki Lopez MD - 09/15/2024 1:19 PM MUSIC ADAPTER Franki Lopez MD ? 09/15/2024 ??2:38 PM [...] final defect: adipose Previous dermpath accession #: [id number] Repair type: intermediate Mohs accession #: [...] confirmed by the patient. All components of [place] Protocol/PAUSE Rule completed. STAGE I: The patient [...] sections examined. No additional histologic findings appreciated. [facility] CLIA # [id number] [employer] Division Chair: Marcelina Ureña MD REPAIR: Intermediate Primary Surgeon: Franki Lopez MD Porcelain Slusher: Jovani Hancock MD Repair Size: 6.0 cm [...] for a wound check. Jovani Hancock MD Mohs MSDO Fellow, PGY5 A procedure was performed. I was present for the conte portions of the procedure and was always immediately available. I have reviewed the note and edited it as necessary. Date of Service : 09/15/2024 Franki Lopez MD Franki Lopez MD PROCEDURE/MINOR SURG ICAL ORDERABLES * WV DESTRUCT BENIGN LESION, 1-14 (08/24/2024 10:59 AM CDT) Narrative Franki Lopez MD - 08/24/2024 10:59 AM CDT Rony Loya MD ? 08/24/2024 10:59 AM Diagnosis and treatment options discussed. Cryotherapy (Liquid Nitrogen) to 2 lesions for 10 seconds each. Number of cycles: 1. Wound care reviewed. Franki Lopez MD PROCEDURE/MINOR SURG ICAL ORDERABLES * WV TANGNTL BX SKIN SINGLE LES, [place] TANGNTL BX SKIN EA SEP ADDL (08/24/2024 10:58 AM CDT) Narrative Franki Lopez MD - 08/24/2024 10:58 AM CDT Rony [...] Franki Lopez MD PROCEDURE/MINOR SURG ICAL ORDERABLES from Last 3 Months Care Teams Grape Crusher Relationship Specialty Start Date End Date Arian Menard MD [address] [address] PCP - General 03/30/18
--- OUTSIDE RECORDS SUMMARY | 2024-11-17 19:22 | XMS_ITS | Data Portability ---
Author Organization [place] - [facility], Main Office Address [address] [place] [address] Care Team Providers Care Clinic Licensed Practical Nurse Name Role Phone ELI BUSTAMANTE Primary Care Provider ELI BUSTAMANTE Referring Provider Assessment Encounter Date Assessment Date Assessment LastModified by Organization Details LastModified Time 09/26/2024 09/26/2024 HPI: This is a 79 year old patient who presents today for evaluation of her left shoulder that has been ongoing for the past week. This is a result of a fall in the kitchen after she turned around and lost her balance. States she hit her head, shoulder, and hip. Reports pain as constant in nature and a severity of 6/10. Pain is aggravated by movement. She takes Meloxicam daily for arthritis. She had an old rx of tramadol from her knee replacement in 2021 that she has been taking since the fall. She reports good relief with tramadol. There is no history of prior injury. No history of prior shoulder surgery. ROS: Per patient questionnaire Physical Exam: General: Normal appearance. No acute distress. Inspection: No evidence of swelling, erythema, bruising or deformity. Palpation: Nontender to palpation ROM: Normal ROM. Mild pain with ROM Special Test: Positive Mosqueda-Jacques and Neers Tests, Negative Empty Can test, Negative Drop Arm, Negative Mitchell? s Test Motor: 5/5 strength in all other planes. Sensation: Upper extremity sensation intact. Imaging: Xray reviewed. Preserved joint space. Subacromial sclerosis Assessment & Plan: ? ? Ordered physical therapy ? ? Prescribed Tramadol as needed for pain. No refills were given. Patient is aware that this rx will not have any refills and also to be careful as this medication can cause dizziness. ? ? Ice or heat for pain. Advised to try Voltaren gel. All questions were answered. Patient verbalized understanding of treatment plan Follow Up: In 4-6 weeks if no improvement with PT. If she fails conservative treatment next step would be to consider an injection. laci Not available 09/26/2024 11:11:28 Plan of Treatment Reminders Order Date Submit Date Provider Last Modified By Organization Details Last Modified Time Details Appointments None recorded. Lab None recorded. Referral physical therapist referral - Please contact pt to schedule apt for L shoulder. Thanks 2023 [email or web address] [facility], [address], [place], [address], 11:06:38 Procedures None recorded. Surgeries None recorded. Imaging XR, shoulder, 2 or more view 2023 [email or web address] [facility], [address] [facility] [place], [place], [address], 11:06:38 Medication Orders tramadol 50 mg tablet 2023 [id number], [address], [place], [place], [id number], 11:12:08 Patient TargetsNo targets recorded. Patient InstructionsNo instructions recorded. Reason for Referral Physical Therapist Referral for Pain of left shoulder joint L shoulder Please contact pt to schedule apt for L shoulder. Thanks Referring Physician: Nova Alba, Orthopedic Surgery, Encounter Date: 09/26/2024 Results Created Date Observation Date Name Description Value Unit Range Abnormal Flag Note LastModifiedBy Organization Detail LastModifiedTime 06/25/20 21 XR, knee No observ ation record ed. [id number] [facility] [address] [facility] [place], [place], [address], 12/24/2022 20:08:56 09/26/20 24 XR, shoul bird, 2 or more view No observ ation record ed. [facility] [place] [address], [place], [address], 09/26/2024 11:09:59 Result Notes None recorded. Problems Name Problem SNOMED Code Status Onset Date Resolution Date Notes Provider Name and Address Organization Details Recorded Time Arthritis of left knee 5561266276031 104 Active [address] Not [address] [facility] 3 20:07:34 Arthritis of right knee 5908301458652 102 Active 2020 Not Available [facility] 3 20:07:34 Bilateral osteoarthr itis of knees 2663579072169 07 Active 2021 Not Available [facility] 3 20:07:34 Osteoarthr itis 296717599 Active 2021 Not Available [facility] 3 20:07:34 Pain of bilateral knee joints 4221822991563 04 Active 2021 Not Available [facility] 3 20:07:34 Pain of left shoulder joint 1073934569558 9109 Active 2023 INESSA Mckeon [facility], [place] - [facility] [employer] [facility] 4 10:19:51 Notes:Some problems listed i n Document: #[id number] could not be added to this patient's chart. Please review this document and add these problems to the patient's chart manually as needed. Problem Notes None recorded. Procedures Surgical History Date Name Laterality Status Provider Name and Address Organization Details Recorded Time Back Surgery completed Not Available [facility] 12/24/2022 20:06:42 Gallbladder Surgery completed Not Available [facility] 12/24/2022 20:06:42 Imaging Results Imaging Date Name Status LastModified by Organiz ation Details LastModified Time 06/25/2021 XR, knee completed [id number] [facility] [address] [facility] [place], [place], [address], 12/24/2022 20:08:56 09/26/2024 XR, shoulder, 2 or more view completed [email or web address] [facility] [address], [place], [address], 09/26/2024 11:09:59 Procedure Notes None recorded. Medical Equipment None Reported. Medications Name Sig Start Date Stop Date Status Note LastModified by Organization Details LastModified Time amoxicillin 500 mg capsule TAKE 4 CAPSULE BY MOUTH 1 HOURS PRIOR TO DENTAL APPOINTME NT 09/26 completed Not Available Not Available Not Available atorvastati n 40 mg tablet Take 1 tablet every day by oral route. active Not Available Not Available No t Available metformin 500 mg tablet TAKE 1 TABLET BY MOUTH TWICE DAILY 09/21 completed Not Available Not Available Not Available prednisone 10 mg tablet 09/21 completed Not Available Not Available Not Available oxybutynin chloride ER 10 mg tablet,exte nded release 24 hr TAKE 1 TABLET BY MOUTH DAILY active Not Available Not Available No t Available donepezil 10 mg tablet TAKE 1 TABLET BY MOUTH EVERY DAY AT BEDTIME active Not Available Not Available No t Available meloxicam 15 mg tablet Take 1 tablet every day by oral route. active Not Available Not Available No t Available bupivacaine HCl 0.5 % (5 mg/mL) injection solution Take 80 mg by injection route. 09/21 completed Not Available Not Available Not Available penicillin V potassium 500 mg tablet TAKE 1 TABLET BY MOUTH FOUR TIMES DAILY UNTIL ALL TAKEN 09/21 completed Not Available Not Available Not Available metronidazo le 500 mg tablet 06/18 completed Not Available Not Available Not Available acetaminoph en 300 mg-codeine 30 mg tablet TAKE 1 TABLET BY MOUTH EVERY 4-6 HOURS NEEDED FOR PAIN 09/21 completed Not Available Not Available Not Available amlodipine 5 mg tablet TAKE 1 TABLET BY MOUTH DAILY 09/21 completed Not Available Not Available Not Available ciprofloxac in 500 mg tablet TAKE 1 TABLET BY MOUTH TWICE DAILY 09/21 completed Not Available Not Available Not Available sulfamethox azole 800 mg-trimetho prim 160 mg tablet TAKE 1 TABLET BY MOUTH TWICE DAILY 09/21 completed Not Available Not Available Not Available tramadol 50 mg tablet Take 1 tablet every 6-8 hours by oral route as needed. active Not Available Not Available No t Available prednisone 10 mg tablets in a dose pack Take 1 tab by mouth, 3 times a day for 3 daysTake 1 tab by mouth 2 times a day for 2 daysTake 1 tab by mouth once a day for 1 day 09/21 completed Not Available Not Available Not Available Kenalog 10 mg/mL suspension for injection In office injection administe red by the provider 09/21 completed NDC: 0003- 0494- 20 Not Available Not Available Not Available amlodipine 5 mg-benazepr il 20 mg capsule 06/18 completed Not Available Not Available Not Available cephalexin 500 mg capsule TAKE 1 CAPSULE BY MOUTH EVERY 12 HOURS 09/21 completed Not Available Not Available Not Available pantoprazol e 40 mg tablet,christian yed release TAKE 1 TABLET BY MOUTH EVERY MORNING 09/21 completed Not Available Not Available Not Available benazepril 20 mg tablet Take 1 tablet every day by oral route. active Not Available Not Available No t Available hydrochloro thiazide 25 mg tablet TK 1 T PO EVERY DAY FOR BLOOD PRESSURE 06/18 completed Not Available Not Available Not Available digoxin 125 mcg (0.125 mg) tablet TAKE 1 TABLET BY MOUTH DAILY active Not Available Not Available No t Available levofloxaci n 750 mg tablet 06/18 completed Not Available Not Available Not Available fluticasone propionate 50 mcg/actuati on nasal spray,suspe nsion SHAKE LIQUID AND USE 2 SPRAYS IN EACH NOSTRIL DAILY NEEDED FOR ALLERGY SYMPTOMS 09/21 completed Not Available Not Available Not Available sertraline 50 mg tablet TAKE 1 TABLET BY MOUTH DAILY active Not Available Not Available No t Available amoxicillin 875 mg-potassiu m clavulanate 125 mg tablet TAKE 1 TABLET BY MOUTH EVERY 12 HOURS UNTIL ALL TAKEN 09/21 completed Not Available Not Available Not Available amoxicillin 500 mg-potassiu m clavulanate 125 mg tablet TAKE 1 TABLET BY MOUTH TWICE DAILY 09/26 completed Not Available Not Available Not Available nitrofurant oin monohydrate /macrocryst als 100 mg capsule TAKE 1 CAPSULE BY MOUTH TWICE DAILY FOR 7 DAYS 09/21 completed Not Available Not Available Not Available amlodipine 5mg active Not Available Not Av ailable Not Available lidocaine (PF) 10 mg/mL (1 %) injection solution In office injection administe red by the provider 09/21 completed NDC: 0409- 4276- 17 Not Available Not Available Not Available ferrous gluconate 324 mg (38 mg iron) tablet TK 2 TS QD 06/18 completed Not Available Not Available Not Available FreeStyle Lite Strips USE TO TEST BLOOD SUGAR DAILY DIRECTED 09/21 completed Not Available Not Available Not Available Shingrix (PF) 50 mcg/0.5 mL intramuscul ar suspension, kit 06/18 completed Not Available Not Available Not Available Fluzone High-Dose 8254-1033 (PF) 180 mcg/0.5 mL intramuscul ar syringe ADM 0.5ML IM UTD 06/18 completed Not Available Not Available Not Available ID NOW COVID-19 Test Kit TEST DIRECTED 09/21 completed Not Available Not Available Not Available BinaxNOW COVID-19 Ag Self Test kit TEST DIRECTED TODAY 09/21 completed Not Available Not Available Not Available Paxlovid 300 mg (150 mg x 2)-100 mg tablets in a dose pack FOLLOW PACKAGE DIRECTION S active Not Available Not Available No t Available Vitals Date Recorded Body mass index (BMI) Body height Body weight Provider Name and Address Organization Details Last Updated DateTime 06/25/2021 23.6 kg/m2 154.94 cm 52469.05 g Not Available [facility] 12/24/2022 20:07:17 Date Recorded Body mass index (BMI) Body height Body weight Provider Name and Address Organization Details Last Updated DateTime 08/06/2021 22.7 kg/m2 154.94 cm 41858.08 g Not Available [facility] 12/24/2022 20:07:17 Date Recorded Body mass index (BMI) Body height Body weight Provider Name and Address Organization Details Last Updated DateTime 12/31/2021 23.1 kg/m2 154.94 cm 24061.27 g Not Available [facility] 12/24/2022 20:07:17 Date Recorded Body mass index (BMI) Body height Body weight Provider Name and Address Organization Details Last Updated DateTime 05/06/2022 23.6 kg/m2 154.94 cm 90302.05 g Not Available [facility] 12/24/2022 20:07:17 Date Recorded Body height Body mass index (BMI) Body weight Provider Name and Address Organization Details Last Updated DateTime 09/26/2024 157.48 cm 21 kg/m2 49348.12 g INESSA Mckeon [place] [facility] 09/26/2024 10:17:32 Social History Question Answer Notes LastModified by Organizat ion Details LastModified Time Tobacco Smoking Status Never Smoker Not Available [facility] 12/24/2022 20:06:39 What Is Your Level Of Alcohol Consumption? None [email or web address] Information not available 09/26/2024 What Was The Date Of Your Most Recent Tobacco Screening? 09/26/2024 [email or web address] Information not available 09/26/2024 Sex: Unknown Functional Status None recorded. Mental Status None recorded. Family History Relationship Description Onset Age of this Age Resolved Age Notes LastModified by Organization Details LastModified Time Father Heart disease [id number] Not available 12/24/2022 20:06:42 Father Family history of stroke [id number] Not available 12/24/2022 20:06:43 Unspecified Relation Family history of malignant neoplasm grandp arents [id number] Not available 12/24/2022 20:06:43 Unspecified Relation Hypertensive disorder [id number] Not available 12/24/2022 20:06:43 Medical History Condition Response ARTHRITIS Y CANCER: SPECIFY Y ANEMIA/BLOOD DISORDER Y HEART DISEASE/HEART PROBLEMS Y DIABETES, TYPE Y USE OF NSAIDS Y HEART ARRHYTHMIA Y HYPERTENSION Y Gynecological HistoryNo gynecological history recorded. Obstetrics History GPAL:G 0 P 0 0 0 0 Past Encounters Encounter ID Performer Location Encounter Start Date Encounter Closed Date Diagnosis/Indication Diagnosis SNOMED-CT Code Diagnosis ICD10 Code Diagnosis Note [id number] [facility] [address] [address] 06/25/2021 00:00:00 06/25/2021 10:53:04 [id number] [facility] [address] [address] 08/06/2021 00:00:00 08/06/2021 10:57:19 [id number] [facility] [address] [address] 12/31/2021 00:00:00 12/31/2021 10:32:55 [id number] [facility] [address] [place] [address] 05/06/2022 00:00:00 05/06/2022 11:59:56 [id number] Nova Alba PA-C [facility] [address] [place] [address] 09/26/2024 10:01:42 09/26/2024 10:50:30 Pain of left shoulder joint 6744303224 [id number] M25.512 Health Concerns Section Related Observation LastModified by Organization Detai ls LastModified Time None Recorded Concern Status LastModified by Organization Details LastModified Time None Recorded Advance Directives Directive None Recorded Payers Encounter Date Sequence Insurance Name Policy Number Policy [place] Covered Member ID [place] Member ID Guarantor Name 09/26/2024 1 [place] Evelyn Hatfield [id number] Evelyn Hatfield 09/26/2024 2 [employer] Evelyn Hatfield [id number] Evelyn Hatfield Notes Date Note Type Note Provider Name and Address Organization Details Recorded Time 06/25/2021 text/html KneeReported bypatient.Location :bilateral Quality:aching; throbbing; dull Severity:moderate Duration:continuou s since onset Timing:chronic Alleviating Factors:sitting; lying down; rest; elevation Aggravating Factors:bending/sq uatting; weight bearing Associated Symptoms:no weakness; no numbness; no tingling; no redness; no ecchymosis; no catching/locking; no popping/clicking; no buckling; no instability; no radiation down leg; no drainage; no fever; no chills; no weight loss; no change in bowel/bladder habits;swelling;wa rmth;grinding Not Available [facility] 06/25/2021 10:53:04 08/06/2021 text/html KneeReported bypatient.Location :bilateral Quality:aching; throbbing; dull Severity:moderate Duration:continuou s since onset Timing:chronic Alleviating Factors:sitting; lying down; rest; elevation Aggravating Factors:bending/sq uatting; weight bearing Associated Symptoms:no weakness; no numbness; no tingling; no redness; no ecchymosis; no catching/locking; no popping/clicking; no buckling; no instability; no radiation down leg; no drainage; no fever; no chills; no weight loss; no change in bowel/bladder habits;swelling;wa rmth;grinding Not Available [facility] 08/06/2021 10:57:19 OBGyn Episode No OBEpisode recorded.
--- OUTSIDE RECORDS SUMMARY | 2024-11-17 19:22 | XMS_ITS | Clinical Summary ---
Author Organization [facility] Address [address] [place] [address] Care Team Providers Care Mobile Home Technician Name Role Phone Arian Menard MD Primary Care Provider [phone] Allergies No known active allergies Medications amLODIPine (NORVASC) 5 mg tablet Take 5 mg by mouth daily. Active benazepriL (LOTENSIN) 20 mg tablet every 24 hours. Acti ve digoxin (LANOXIN) 125 mcg (0.125 mg) tablet Take 125 mcg by mouth daily. 9 Active fluticasone propionate (FLONASE) 50 mcg/spray [place], Suspension nasal inhaler Administer 1 [place] in each nostril. Active meloxicam (MOBIC) 15 mg tablet Take 15 mg by mouth daily. 9 Active atorvastatin (LIPITOR) 40 mg tablet every 24 hours. 9 Active aspirin (CANDACE CHEWABLE) 81 mg Tablet, Chewable Take 81 mg by mouth daily. Active ferrous gluconate 324 mg (38 mg iron) tablet Take 324 mg by mouth 2 times daily. Active sertraline (ZOLOFT) 50 mg tablet Take 50 mg by mouth daily. Active oxyBUTYnin (DITROPAN XL) 10 mg Extended Release 24 hour tablet Take 10 mg by mouth daily. Active Active Problems Problem Noted Date Diagnosed Date Iron deficiency anemia 08/27/2021 Arthritis of left knee 06/25/2021 Nausea and vomiting 08/31/2019 Overview (08/14/2021): Added automatically from request for surgery [id number] Encounters Date Type Department Care Team Description 11/17/2024 Orders Only [facility] - [place] [address] [place] [address] Jhonatan Pang MD 11/16/2024 External Device Data STL ABSTRACTION Provider, Abstract 11/16/2024 Orders Only [facility] - [place] [address] [place] [address] Jhonatan Pang MD from Last 3 Months Social History Tobacco Use Types Packs/Day Years Used Date Smoking Tobacco: Never Tobacco Cessation:Counseling Given: Not Answered Alcohol Use Standard Drinks/Week Comments Never 0 (1 standard drink = 0.6 oz pur e alcohol) Comments No Sex and Gender Information Value Date Recorded Sex Assigned at Not on file Legal Sex Female 2:13 PM CDT Gender Identity Not on file Sexual Orientation Not on file Last Filed Vital Signs Vital Sign Reading Time Taken Comments Blood Pressure 140/69 07/15/2024 11:37 AM CDT Pulse 69 07/15/2024 11:37 AM CDT Temperature 36.7 ??C (98 ??F) 07/15/2024 11:37 AM CDT Respiratory Rate 16 07/15/2024 11:37 AM CDT Oxygen Saturation 90% 07/15/2024 11:37 AM CDT Inhaled Oxygen Concentration - - Weight 51.7 kg (114 lb) 07/15/2024 11:37 AM CDT Height 157.5 cm (5' 2 ) 04/14/2024 3:33 PM CDT Body Mass Index 20.85 04/14/2024 3:33 PM CDT Plan of Treatment Upcoming Encounters Date Type Department Care Team (Late st Contact Info) Description 11/18/2024 10:15 AM DIAL PAINTER Office Visit [facility] - [place] [address] [place] [address] Jhonatan Pang MD [address] [facility] [address] [place] [address] Health Maintenance Due Date Last Done Comments DIABETES ANNUAL FOOT EXAM 1961 DIABETES MICROALBUMIN ANNUAL SCREEN 1961 LDL CHOLESTEROL ANNUAL 1961 DTAP/TDAP/TD VACCINES (1 - Tdap) 1962 PNEUMOCOCCAL VACCINE 65+ YEA RS (1 of 2 - PCV) 1962 Traditional Medicare (ACO) A nnual Wellness Visit 1962 ZOSTER VACCINE (1 of 2) 1993 OSTEOPOROSIS SCREENING 01/28/2008 RSV VACCINE (60+ or ) (1 - 1-dose 75+ series) 2018 DIABETES HBA1C Q 6 MONTHS 03/07/20242022, 11/19/2022, 05/30/2021, Additional history exists INFLUENZA VACCINE (#1) 2024 DIABETES ANNUAL RETINAL EXAM 07/08/2025, 03/17/2023, 02/25/2022, Additional history exists COLORECTAL SCREENING Discontinued 07/05/2019, 07/05/20 19 Colorectal Cancer Screening Discontinued FIT-DNA Q 3 years Discontinued FIT/FOBT Q 1 year Discontinued Flex Sig/CT Colonography Q 5 years Discontinued Procedures Procedure Name Priority Date/Time Associated Diagnosis Comments COMPREHENSIVE METABOLIC PANEL Routine 11/15/2024 4:15 PM DIAL PAINTER CBC WITH DIFFERENTIAL Routine 11/15/2024 3:46 PM DIAL PAINTER IRON LEVEL Routine 11/15/2024 11:18 AM DIAL PAINTER from Last 3 Months Results * COMPREHENSIVE METABOLIC PANEL (11/15/2024 4:15 PM DIAL PAINTER) Blood us Jhonatan Pang MD CHEMISTRY ORDERABLES Final Resu lt * CBC WITH DIFFERENTIAL (11/15/2024 3:46 PM DIAL PAINTER) Blood us Jhonatan Pang MD HEMATOLOGY ORDERABLES Final Res ult * IRON LEVEL (11/15/2024 11:18 AM DIAL PAINTER) Blood us Jhonatan Pang MD CHEMISTRY ORDERABLES Final Resu lt from Last 3 Months Insurance MEDICARE PART A AND B Partnered SUPP MEDICARE PART A AND B LATTER [employer] F[employer] SUPP Care Teams Mobile Home Technician Relationship Specialty Start Date End Date Arian Menard MD [address] [address] PCP - General Family Practice 08/14/21
--- OUTSIDE RECORDS SUMMARY | 2024-11-17 19:22 | XMS_ITS | Referral Summary ---
Author Organization [facility] Address [address] [place] [address] Care Team Providers Care Carbon Cutter Name Role Phone Arian Menard MD Primary Care Provider + Source Comments [facility],non-owned Affiliates and Associated Physician Practices is amultiple site organization consisting of ambulatory clinics and hospital sitesin [place], [place], [place] and [place]. This disclosure is being madepursuant to the Care Everywhere program and may not contain all information available regarding this patient. 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 09/29/2024 Travel 09/29/2024 7:15 AM CLERICAL RECEPTIONIST Procedure visit [facility] - Dermatology [address] [place] [phone] Franki Lopez MD BCC (basal cell carcinoma), back 09/15/2024 Travel 09/15/2024 10:00 AM CLERICAL RECEPTIONIST Procedure visit [facility] - Dermatology [address] [place] [phone] Franki Lopez MD 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 08/31/2024 Orders Only [facility] - Dermatology [address] [place] [address] Franki Lopez MD History of basal cell carcinoma (BCC) of skin 08/24/2024 Travel 08/24/2024 10:00 AM CDT Office Visit [facility] - Dermatology [address] [place] [address] Franki Lopez MD Alves angioma (Primary Dx); Seborrheic keratoses; Lentigines; Melanocytic nevi of trunk; Seborrheic keratosis, inflamed; History of basal cell carcinoma (BCC) of skin; Neoplasm of uncertain behavior of skin from Last 3 Months Allergies No known active allergies Medications * [...] Active Active Problems No known active problems Social History Tobacco Use Types Packs/Day Years Used Date Smoking Tobacco: Never Assessed Sex and Gender Information Value Date Recorded Sex Assigned at Not on file Gender Identity Not on file Sexual Orientation Not on file Plan of Treatment Not on file Procedures Procedure Name Priority Date/Time Associated Diagnosis Comments VT INTMD WND REPAIR TRUNK,ARM,LEG 2.6-7.5 Routine 10/27/2024 2:43 PM CLERICAL RECEPTIONIST 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 VT EXC SKIN MALIG 1.1-2CM TRUNK,ARM,LEG Routine 10/27/2024 2:43 PM CLERICAL RECEPTIONIST 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 DERMATOPATHOLOGY Routine 10/27/2024 3:33 AM CLERICAL RECEPTIONIST 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 VT INTMD WND REPAIR TRUNK,ARM,LEG 2.6-7.5 Routine 09/29/2024 9:19 AM CLERICAL RECEPTIONIST BCC (basal cell carcinoma), back VT CHMSRG MOHS MG TQ T/A/L 1ST STAG 5 BLOCKS Routine 09/29/2024 9:19 AM CLERICAL RECEPTIONIST BCC (basal cell carcinoma), back VT INTMD WND REPAIR REST BODY 2.6-7.5 Routine 09/15/2024 1:19 PM CLERICAL RECEPTIONIST 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 VT CHMSRG MOHS MG TQ H/N/H/F/G EA ADDL STAG Routine 09/15/2024 1:19 PM CLERICAL RECEPTIONIST 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 VT CHMSRG MOHS MG TQ H/N/H/F/G 1ST STAG 5 BLOC Routine 09/15/2024 1:19 PM CLERICAL RECEPTIONIST 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 VT DESTRUCT BENIGN LESION, 1-14 Routine 08/24/2024 10:59 AM CDT Seborrheic keratosis, inflamed VT TANGNTL BX SKIN EA SEP ADDL Routine 08/24/2024 10:58 AM CDT Neoplasm of uncertain behavior of skin VT TANGNTL BX SKIN SINGLE LES Routine 08/24/2024 10:58 AM CDT Neoplasm of uncertain behavior of skin DERMATOPATHOLOGY Routine 08/24/2024 12:0 0 AM CDT Neoplasm of uncertain behavior of skin from Last 3 Months Results * VT EXC SKIN MALIG 1.1-2CM TRUNK,ARM,LEG, VT INTMD WND REPAIR TRUNK,ARM,LEG 2.6-7.5 (10/27/2024 2:43PM CLERICAL RECEPTIONIST) Narrative Franki Lopez MD - 10/27/2024 2:43 PM CLERICAL RECEPTIONIST Franki Lopez MD ? 10/27/2024 ??2:50 PM Elliptical Excision with Intermediate Closure Date of Service: 10/27/2024 Tumor Type: Squamous Cell Carcinoma In Situ Location: Central Chest Derm-Path Lesion Size: 1.2 x 1.0 cm Repair Type: intermediate Repair Size: 4.5 cm Suture Material: 3-0 monocryl, 4-0 monocryl Level of Defect: adipose Surgical Margins: 0.4 Primary Surgeon: Franki Lopez MD Wrapper Hand: Jovani Hancock MD INDICATIONS: The risks of [...] patient will follow up with their primary oil program compliance specialist. Jovani Hancock MD Mohs MSDO Fellow, PGY5 A procedure was performed. I was present for the conte portions of the procedure and was always immediately available. I have reviewed the note and edited it as necessary. Date of Service : 10/27/2024 Franki Lopez MD Franki Lopez MD PROCEDURE/MINOR SURG ICAL ORDERABLES * DERMATOPATHOLOGY (Specimen Count = 1) (10/27/2024 3:33 AM CLERICAL RECEPTIONIST) Only the most recent of2 resultswithin the time period is included. Case Report Dermatopathology Report ? Case: [id number] ? Authorizing Provider: ??Franki Lopez MD ?Collected: ? 10/27/2024 03:33 AM ? Ordering Location: ? [facility] - ??Received: ?10/27/2024 03:08 PM ? Dermatology ? Pathologist: ? Lyndsay Orta MD ? Specimen: ?Skin, central chest ? 12:55 PM [facility] DERMAT[facility] Final Diagnosis Specimen A. SKIN, central chest: SQUAMOUS CELL CARCINOMA IN SITU (LAZO'S DISEASE) (D04.5) NOT PRESENT AT MARGIN DERMAL SCAR (L90.5) 12:55 PM [facility] DERMAT[facility] Clinical History Scar vs SCCIS. Check margins. 12:55 PM [facility] DERMAT[facility] Gross Description Specimen A: Received is one formalin filled container labeled with the patient's name and designated central chest. The specimen consists of a non-oriented ellipse of skin measuring [id number] mm. The margin is inked green. The 12 o'clock and 6 o'clock tips are submitted in cassette 1. The remainder of the ellipse is serially sectioned and submitted in cassette 2-3. Jar 0. 12:55 PM [facility] DERMATOP[facility] Microscopic Description Specimen A. [...] perpendicular to the skin surface. 12:55 PM [facility]ERMAT[facility] Disclaimer An external and internal positive and negative controls are appropriate for the histochemical, immunohistochemical and immunofluorescence stain(s) in this case (if any), except where stated explicitly. The performance characteristics of the stain(s) cited in this report were developed and its performance characteristic determined by the Dermatopathology Laboratory at [facility], directed by Dr. Uche Fishman. These tests need not be, and therefore are not, approved by the [place] Food and Drug Administration. The tests are used for clinical purposes. Billing Codes Specimen Charges Stain Charges 32433 1 12:55 PM [facility]ER[facility] Embedded Images 12:55 PM [facility]MAT[facility] Pathology/Cytolo gy TISSUE SPECIMEN FROM SKIN / Unknown 10/27/2024 3:33 AM CLERICAL RECEPTIONIST 10/27/2024 3:08 PM CLERICAL RECEPTIONIST Franki Lopez MD LAB - PATHOLOGY/CYTO LOGY ORDERABLES DERMATOPATHOLOGY LABORATORY [facility] - Department of Dermatology [address], [address] [phone] * VT CHMSRG MOHS MG TQ T/A/L 1ST STAG 5 BLOCKS, VT INTMD WND REPAIR TRUNK,ARM,LEG 2.6-7.5 (49:19 AM CLERICAL RECEPTIONIST) Narrative Franki Lopez MD - 09/29/2024 9:19 AM CLERICAL RECEPTIONIST Franki Lopez MD ? 09/29/2024 ??9:25 AM Mohs Micrographic Surgery Operative Note Procedure: Mohs micrographic surgery Date of service: 09/29/2024 Location: Right mid back Preop diagnosis: Basal cell carcinoma, infiltrative subtype Postop diagnosis: Same Mohs AUC score: 7 Number of stages: 1 Preop size: 1.2 x 1.2 cm Postop size: 2.3 x 2.0 cm Depth of final defect: adipose Previous dermpath accession #: [id number] Repair type: intermediate Mohs accession #: [id number] [...] confirmed by the patient. All components of [place] Protocol/PAUSE Rule completed. STAGE I: The patient [...] processed in the Mohs lab using the [facility] protocol and submitted for frozen section. The [...] Inflammation obscuring possible tumor presence: Not Present [facility] CLIA # [id number] Mohs microbiology laboratory manager: Marcelina Ureña MD REPAIR: Intermediate Primary Surgeon: Franki Lopez MD Wrapper Hand: Jovani Hancock MD Repair Size: 5.5 cm [...] patient will follow up with their primary oil program compliance specialist. Jovani Hancock MD [facility] MSDO Fellow, PGY5 A procedure was performed. I was present for the conte portions of the procedure and was always immediately available. I have reviewed the note and edited it as necessary. Date of Service : 09/29/2024 Franki Lopez MD Franki Lopez MD PROCEDURE/MINOR SURG ICAL ORDERABLES * VT CHMSRG MOHS MG TQ H/N/H/F/G 1ST STAG 5 BLOC, VT CHMSRG MOHS MG TQ H/N/H/F/G EA ADDL STAG, VT INTMD WND REPAIR REST BODY 2.6-7.5 (09/15/2024 1:19 PM CLERICAL RECEPTIONIST) Narrative Franki Lopez MD - 09/15/2024 1:19 PM CLERICAL RECEPTIONIST Franki Lopez MD ? 09/15/2024 ??2:38 PM [...] final defect: adipose Previous dermpath accession #: [id number] Repair type: intermediate Mohs accession #: [...] confirmed by the patient. All components of [place] Protocol/PAUSE Rule completed. STAGE I: The patient [...] sections examined. No additional histologic findings appreciated. [facility] CLIA # [id number] [facility] Office Spec: Marcelina Ureña MD REPAIR: Intermediate Primary Surgeon: Franki Lopez MD Wrapper Hand: Jovani Hancock MD Repair Size: 6.0 cm [...] Lopez MD PROCEDURE/MINOR SURG ICAL ORDERABLES * VT DESTRUCT BENIGN LESION, 1-14 (08/24/2024 10:59 AM CDT) Narrative Franki Lopez MD - 08/24/2024 10:59 AM CDT Rony Loya MD ? 08/24/2024 10:59 AM Diagnosis and treatment options discussed. Cryotherapy (Liquid Nitrogen) to 2 lesions for 10 seconds each. Number of cycles: 1. Wound care reviewed. Franki Lopez MD PROCEDURE/MINOR SURG ICAL ORDERABLES * VT TANGNTL BX SKIN SINGLE LES, VT TANGNTL BX SKIN EA SEP ADDL (08/24/2024 [...] ORDERABLES from Last 3 Months Care Teams Carbon Cutter Relationship Specialty Start Date End Date Arian Menard MD [address] [place] [id number] PCP - General 03/30/18
== END 2024-11-15 14:52 | disposition home or self-care (01) ==
LOC: ANHLAB 14:55
PROVIDERS: PCP Nurse Practitioner Family; Visit Provider Internal Medicine Hematology & Oncology
DX: D64.9 Anemia, unspecified (principal)
CPT/HCPCS: 36415; 80053; 82607; 82728; 82746; 83540; 83550; 85025

== ENCOUNTER 2025-05-16 14:17 | Outpatient (CLI) | payer MEDICARE, SELFPAY ==
--- OUTSIDE RECORDS SUMMARY | 2025-05-16 14:22 | XMS_ITS | Clinical Summary ---
Author Organization [facility] Address [address] [place] [address] Care Team Providers Care Roller Helper Name Role Phone Arian Menard MD Primary Care Provider [phone] Allergies No known active allergies Medications amLODIPine (NORVASC) 5 mg tablet Take 5 mg by mouth daily. Active benazepriL (LOTENSIN) 20 mg tablet every 24 hours. Acti ve digoxin (LANOXIN) 125 mcg (0.125 mg) tablet Take 125 mcg by mouth daily. 9 Active fluticasone propionate (FLONASE) 50 mcg/spray [place], Suspension nasal inhaler Administer 1 [place] in each nostril. Active meloxicam (MOBIC) 15 mg tablet Take 15 mg by mouth daily. 9 Active atorvastatin (LIPITOR) 40 mg tablet every 24 hours. 9 Active aspirin (CANDACE CHEWABLE) 81 mg Tablet, Chewable Take 81 mg by mouth daily. Active sertraline (ZOLOFT) 50 mg tablet Take 50 mg by mouth daily. Active oxyBUTYnin (DITROPAN XL) 10 mg Extended Release 24 hour tablet Take 10 mg by mouth daily. Active ferrous gluconate 324 mg (38 mg iron) tablet Take 1 Tablet (324 mg) by mouth 2 times daily. 60 Tablet 5 5 Active Active Problems Problem Noted Date Diagnosed Date Iron deficiency anemia 08/27/2021 Arthritis of left knee 06/25/2021 Nausea and vomiting 08/31/2019 Overview (08/14/2021): Added automatically from request for surgery [id number] Encounters Date Type Department Care Team Description 05/10/2025 External Device Data STL ABSTRACTION Provider, Abstract 05/10/2025 External Device Data STL ABSTRACTION Provider, Abstract 05/09/2025 External Device Data STL ABSTRACTION Provider, Abstract 04/12/2025 External Device Data STL ABSTRACTION Provider, Abstract 04/11/2025 External Device Data STL ABSTRACTION Provider, Abstract 03/21/2025 External Device Data STL ABSTRACTION Provider, Abstract 03/15/2025 External Device Data STL ABSTRACTION Provider, Abstract 03/14/2025 External Device Data STL ABSTRACTION Provider, Abstract from Last 3 Months Social History Tobacco Use Types Packs/Day Years Used Date Smoking Tobacco: Never Alcohol Use Standard Drinks/Week Comments Never 0 (1 standard drink = 0.6 oz pur e alcohol) Comments No Sex and Gender Information Value Date Recorded Sex Assigned at Not on file Legal Sex Female 2:13 PM CDT Gender Identity Not on file Sexual Orientation Not on file Last Filed Vital Signs Vital Sign Reading Time Taken Comments Blood Pressure 157/81 11/18/2024 10:21 AM EYEGLASS INSPECTOR Pulse 72 11/18/2024 10:18 AM EYEGLASS INSPECTOR Temperature 36.4 C (97.5 F) 11/18/2024 10:18 AM EYEGLASS INSPECTOR Respiratory Rate 15 11/18/2024 10:18 AM EYEGLASS INSPECTOR Oxygen Saturation 94% 11/18/2024 10:18 AM EYEGLASS INSPECTOR Inhaled Oxygen Concentration - - Weight 52.2 kg (115 lb) 11/18/2024 10:18 AM EYEGLASS INSPECTOR Height 157.5 cm (5' 2) 04/14/2024 3:33 PM CDT Body Mass Index 21.03 04/14/2024 3:33 PM CDT Plan of Treatment Upcoming Encounters Date Type Department Care Team (Late st Contact Info) Description 05/19/2025 10:00 AM CDT Office Visit [facility] Oncology and Hematology - [place] [address] [place] [address] Jhonatan Pang MD [address] [place] [address] Health Maintenance Due Date Last Done Comments DIABETES ANNUAL FOOT EXAM 1961 DIABETES MICROALBUMIN ANNUAL SCREEN 1961 LDL CHOLESTEROL ANNUAL 1961 DTAP/TDAP/TD VACCINES (1 - Tdap) 1962 PNEUMOCOCCAL VACCINE 50+ YEA RS (1 of 2 - PCV) 1962 Traditional Medicare (ACO) A nnual Wellness Visit 1962 ZOSTER VACCINE (1 of 2) 1993 OSTEOPOROSIS SCREENING 01/28/2008 RSV VACCINE (60+ or ) (1 - 1-dose 75+ series) 2018 DIABETES HBA1C Q 6 MONTHS 03/07/20242022, 11/19/2022, 05/30/2021, Additional history exists INFLUENZA VACCINE (#1) 2025 DIABETES ANNUAL RETINAL EXAM 07/08/2025, 03/17/2023, 02/25/2022, Additional history exists COLORECTAL SCREENING Discontinued 07/05/2019, 07/05/20 19 Colorectal Cancer Screening Discontinued FIT-DNA Q 3 years Discontinued FIT/FOBT Q 1 year Discontinued Flex Sig/CT Colonography Q 5 years Discontinued Insurance MEDICARE PART A AND B [facility] Member Subscriber Plan / Payer (Ef fective 2021-Present) Name:Evelyn Hatfield Relation to Subscriber:Self Name:Evelyn Hatfield Payer ID:Not on file Group ID:Not on file Type:Supplemental Address: [place] [id number] MEDICARE PART A AND B [facility] Care Teams Roller Helper Relationship Specialty Start Date End Date Arian Menard MD PCP - General Family Practice 08/14/21
--- OUTSIDE RECORDS SUMMARY | 2025-05-16 14:22 | XMS_ITS | Clinical Summary ---
Author Organization [facility] Address [address] [place] [address] Care Team Providers Care Community Youth Secretary Name Role Phone Arian Menard MD Primary [...] (08/12/2022): Added automatically from request for surgery [id number] Left upper quadrant pain 08/31/2019 Overview (08/31/2019): Added automatically from request for surgery [id number] Nausea and vomiting 08/31/2019 Overview (08/31/2019): Added automatically from request for surgery [id number] Abnormal weight loss 08/31/2019 Overview (08/31/2019): Added automatically from request for surgery [id number] Positive occult stool blood test 05/24/2019 Overview (05/24/2019): Added automatically from request for surgery [id number] Surgical History Surgery Date Site/Laterality Comments COLONOSCOPY 06/02/2013 BACK SURGERY 10/26/2005 - 10/25/2006 CHOLECYSTECTOMY 10/26/2010 - 10/25/2011 UPPER GASTROINTESTINAL ENDOSCOPY ESOPHAGEAL DILATION x2 CATARACT EXTRACTION VEIN LIGATION AND STRIPPING 10/26/1989 - 10/25/1990 Left Medical History Medical History Date Comments Hx Other Medical 2011 gallbladder; Co mments: [facility] 11/21/2014 - Hypertension Atrial fibrillation (HCC) Hyperlipidemia Type 2 diabetes mellitus (HCC) [...] on file Legal Sex Female 7:18 PM REDRYING MACHINE OPERATOR Gender Identity Not on file Sexual Orientation Not on file Obstetrics History Last Filed Vital Signs Vital Sign Reading Time Taken Comments Blood Pressure 145/71 12/12/2022 8:10 AM REDRYING MACHINE OPERATOR Pulse 75 12/12/2022 8:10 AM REDRYING MACHINE OPERATOR Temperature 36.3 C (97.4 F) 12/12/2022 8:10 AM REDRYING MACHINE OPERATOR Respiratory Rate 16 12/12/2022 8:10 AM REDRYING MACHINE OPERATOR Oxygen Saturation 98% 12/12/2022 8:10 AM REDRYING MACHINE OPERATOR Inhaled Oxygen Concentration - - Weight 51.6 kg (113 lb 12.8 oz) 12/11/2022 9:36 AM REDRYING MACHINE OPERATOR Height 157.5 cm (5' 2) 12/11/2022 9:36 AM REDRYING MACHINE OPERATOR Body Mass Index 20.81 12/11/2022 9:36 AM REDRYING MACHINE OPERATOR Plan of Treatment Health Maintenance Due Date Last Done Comments Albumin Creatinine Ratio, Urine 1943 Depression Screening 1943 Osteoporosis Screening-Bone Density Scan 1943 Dilated Eye Exam 1943 Foot Exam 1943 Lipid Panel 1943 Hepatitis B Screening 1961 Well Visit 65+ 01/28/2008 Pneumococcal vaccine 65+ (2 of 2 - PPSV23) 10/04/2014 08/09/2014 DTaP/Tdap/Td Vaccine (2 - Td or Tdap) 08/17/2022 08/17/2012 Hemoglobin A1C 05/19/2023 11/19/2022 eGFR 11/19/2023 11/19/2022 Fall Risk Assessment 12/12/2023 12/12/2022 Influenza Vaccine (Season Ended) 2025 06/18/2020, 07/16/2019, 07/18/2018, Additional history exists Zoster Vaccine Completed 07/16/2019, 05/05/2019 Medical Devices Implanted Type Area Operator/Assistant Foreman Device Identifier Shelf Expiration Date Model / Serial / Lot [employer] Smartset Medium Viscosity Cement 40gm Bone Sterile 3122-040 - Sna - [id number] Implanted:Qty: 1 on 12/11/2022 by Hussein Zarate MD at [facility] Bone Cement Left: Knee [employer] 05/25/2024 3122-040 / NA / [id number] [employer] Smartset Medium Viscosity Cement 40gm Bone Gentamicin [id number] - Sna - [id number] Implanted:Qty: 1 on 12/11/2022 by Hussein Zarate MD at [facility] Bone Cement Left: Knee [employer] 04/24/2024 [id number] / NA / [id number] [employer] Attune S+ Cement Fix Bearing Knee 4 Baseplate Tibial [id number] - [id number] Implanted:Qty: 1 on 12/11/2022 by Hussein Zarate MD at [facility] Other - see comments Left: Knee [employer] [id number] 08/25/2032 [id number] / / [id number] [employer] Attune Cemented Cruciate Retaining Knee Left 4 Component Femoral [id number] - [id number] Implanted:Qty: 1 on 12/11/2022 by Hussein Zarate MD at [facility] Other - see comments Left: Knee [employer] 09/24/2031 [id number] / / [id number] [employer] Insert Tibial Knee Fixed Lm Posterior Stabilized Attune 5mm Size 4 Polyethylene [id number] - [id number] Implanted:Qty: 1 on 12/11/2022 by Hussein Zarate MD at [facility] Other - see comments Left: Knee [employer] 09/24/2030 [id number] / / [id number] Procedures Procedure Name Priority Date/Time Associated Diagnosis Comments EGFR Routine 11/19/2022 12:05 PM REDRYING MACHINE OPERATOR Primary osteoarthritis of left knee HEMOGLOBIN A1C Routine 11/19/2022 12:05 PM REDRYING MACHINE OPERATOR Primary osteoarthritis of left knee from Last 3 Months or Most Recently Relevant to Health Maintenance Results * eGFR (11/19/2022 12:05 PM REDRYING MACHINE OPERATOR) eGFR 77 mL/min/1. 73 m2 [facility] Comment: Interpretive Data Reference Interval Normal >/= 90 mL/min/1.73m2 Mildly decreased* 60 - 89 mL/min/1.73m2 Mildly to moderately decreased 45 - 59 mL/min/1.73m2 Moderately to severely decreased 30 - 44 mL/min/1.73m2 Severely decreased 15 - 29 mL/min/1.73m2 Kidney Failure < 15 mL/min/1.73m2 *Relative to young adult level Estimated glomerular [...] reviewed 2021. Blood 11/19/2022 12:0 5 PM REDRYING MACHINE OPERATOR 11/19/2022 12:25 PM REDRYING MACHINE OPERATOR us Hussein Zarate MD LAB BLOOD ORDERABLES Corin l Result [facility] [address] [facility]. [employer] [place] [address] * (ABNORMAL) Hemoglobin A1c (11/19/2022 12:05 PM REDRYING MACHINE OPERATOR) Hgb A1C 5.8(H) 4.0 - 5.6 % [facility] Estimated Average Glucose 120 mg/dL [facility] Comment: The ADA recommends reporting an estimated Average Glucose (eAG) with all Hemoglobin A1c results using the equation derived from a study of 507 normal and diabetic adults. Minority populations were underrepresented and children were not included. (Diabetes Care 31:9926-7350, 2007). The eAG is not equivalent to a fasting glucose. Blood 11/19/2022 12:0 5 PM REDRYING MACHINE OPERATOR 11/19/2022 12:25 PM REDRYING MACHINE OPERATOR Hussein Zarate MD LAB BLOOD ORDERABLES Corin roach Result [facility] [address] [facility]. Department [place] [address] from Last 3 Months or Most Recently Relevant to Health Maintenance Insurance MEDICARE COMMERCIAL GENERIC MEDICARE COMMERCIAL GENERIC MEDICARE [place] Advance Directives For more information, please contact: [phone] * Full Code (Latest Code Status on File) Date Activated Date Inactivated Comments 12/11/2022 2:36 PM 12/12/2022 3:07 PM * Full Code Date Activated Date Inactivated Comments 09/29/2019 9:24 AM 09/29/2019 3:02 PM * Full Code Date Activated Date Inactivated Comments 09/29/2019 9:24 AM 09/29/2019 9:24 AM Care Teams Community Youth Secretary Relationship Specialty Start Date End Date Arian Menard MD [address] [place] [address] PCP - General Family Medicine 06/05/21
--- OUTSIDE RECORDS SUMMARY | 2025-05-16 14:23 | XMS_ITS | Clinical Summary ---
Author Organization [facility] [employer] Address [address] [address] Care Team Providers Care Aircraft Engine Mechanic Overhaul Name Role Phone Arian Menard MD Primary Care Provider + Source Comments [facility] [employer],non-owned Affiliates and Associated Physician Practices is amultiple site organization consisting of ambulatory clinics and hospital sitesin [place], [place], [place] and [place]. This disclosure is being madepursuant to the Care Everywhere program and may not contain all information available regarding this patient. Last updated 18.[facility] [employer] Allergies No known active allergies Medications * Be aware that medications may not be up to date on this document. Alwaysverify current medications with the patient. amLODIPine (Norvasc) 5 MG tablet Take 1 [...] once daily Active cephalexin (Keflex) 500 MG capsuleIndicati ons:History of basal cell carcinoma (BCC) of skin Take 4 pills (2g) at one time 30-60 minutes prior to Mohs surgery 12 capsule 08/31/2024 Active traMADol (Ultram) 50 MG tablet Take 1 tablet every 6-8 hours by oral route as needed. 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 Gender Identity Not on file Sexual Orientation Not on file Plan of Treatment Upcoming Encounters Date Type Department Care Team (Late st Contact Info) Description 06/28/2025 11:00 AM CDT Office Visit [facility] - Dermatology [address] [place] [phone] Franki Lopez MD [address] [place] [address] 3 [place] [address] Health Maintenance Due Date Last Done Comments BONE DENSITY TESTING 1945 MEDICARE AWV 12 MONTHS 1945 DTAP/TDAP/TD VACCINES (1 - Tdap) 1962 PNEUMOCOCCAL VACCINE 50+ (1 of 1 - PCV) 1993 ZOSTER VACCINE (1 of 2) 1993 Respiratory Syncytial Virus (RSV) Vaccine Pt: or over 60 yrs (1 - 1-dose 75+ series) 2018 COVID-19 VACCINE (2023-2 5 season) 2024 DEPRESSION SCREENING 10/26/2024 INFLUENZA VACCINE (#1) 2025 HEPATITIS B VACCINE Aged Out No longe r eligible based on patient's age to complete this topic HIB VACCINE Aged Out No longer eligi ble based on patient's age to complete this topic HPV VACCINE Aged Out No longer eligi ble based on patient's age to complete this topic MENINGOCOCCAL (Group B) VACC INE SHARED DECISION-MAKING Aged Out No longer eligibl e based on patient's age to complete this topic MENINGOCOCCAL GROUPS A/C/Y/W VACCINE Aged Out No longer eligible b ased on patient's age to complete this topic Insurance MEDICARE MEDICARE SUPPLEMENT PAYOR GENERIC * Guarantor: EVELYN GARCIA Account Type Relation to Patient Date of Phone Billing Address Personal/Family [address] [place] [address] MEDICARE SUPPLEMENT PAYOR GENERIC * Guarantor: EVELYN GARCIA Account Type Relation to Patient Date of Phone Billing Address Personal/Family [address] [place] [address] MEDICARE SUPPLEMENT PAYOR GENERIC Care Teams Aircraft Engine Mechanic Overhaul Relationship Specialty Start Date End Date Arian Menard MD [address] [address] PCP - General 03/30/18
--- OUTSIDE RECORDS SUMMARY | 2025-05-16 14:23 | XMS_ITS | Referral Summary ---
Author Organization [facility] Address [address] [place] [address] Care Team Providers Care Field Support Rep Name Role Phone Arian Menard MD Primary [...] (08/12/2022): Added automatically from request for surgery [id number] Left upper quadrant pain 08/31/2019 Overview (08/31/2019): Added automatically from request for surgery [id number] Nausea and vomiting 08/31/2019 Overview (08/31/2019): Added automatically from request for surgery [id number] Abnormal weight loss 08/31/2019 Overview (08/31/2019): Added automatically from request for surgery [id number] Positive occult stool blood test 05/24/2019 Overview (05/24/2019): Added automatically from request for surgery [id number] Social History Tobacco Use Types Packs/Day Years [...] on file Legal Sex Female 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 Gender Identity Not on file Sexual Orientation Not on file Last Filed Vital Signs Vital Sign Reading Time Taken Comments Blood Pressure 145/71 12/12/2022 8:10 AM PROFESSOR OF FINE ART Pulse 75 12/12/2022 8:10 AM PROFESSOR OF FINE ART Temperature 36.3 C (97.4 F) 12/12/2022 8:10 AM PROFESSOR OF FINE ART Respiratory Rate 16 12/12/2022 8:10 AM PROFESSOR OF FINE ART Oxygen Saturation 98% 12/12/2022 8:10 AM PROFESSOR OF FINE ART Inhaled Oxygen Concentration - - Weight 51.6 kg (113 lb 12.8 oz) 12/11/2022 9:36 AM PROFESSOR OF FINE ART Height 157.5 cm (5' 2) 12/11/2022 9:36 AM PROFESSOR OF FINE ART Body Mass Index 20.81 12/11/2022 9:36 AM PROFESSOR OF FINE ART Plan of Treatment Not on file Medical Devices Implanted Type Area Health Promoter Device Identifier Shelf Expiration Date Model / Serial / Lot [employer] Smartset Medium Viscosity Cement 40gm Bone Sterile 3122-040 - Sna - [id number] Implanted:Qty: 1 on 12/11/2022 by Hussein Zarate MD at [facility] Bone Cement Left: Knee [employer] 05/25/2024 3122-040 / NA / [id number] [employer] Smartset Medium Viscosity Cement 40gm Bone Gentamicin [id number] - Sna - [id number] Implanted:Qty: 1 on 12/11/2022 by Hussein Zarate MD at [facility] Bone Cement Left: Knee [employer] 04/24/2024 [id number] / NA / [id number] [employer] Attune S+ Cement Fix Bearing Knee 4 Baseplate Tibial [id number] - [id number] Implanted:Qty: 1 on 12/11/2022 by Hussein Zarate MD at [facility] Other - see comments Left: Knee [employer] [id number] 08/25/2032 [id number] / / [id number] [employer] Attune Cemented Cruciate Retaining Knee Left 4 Component Femoral [id number] - [id number] Implanted:Qty: 1 on 12/11/2022 by Hussein Zarate MD at [facility] Other - see comments Left: Knee [employer] 09/24/2031 [id number] / / [id number] [employer] Insert Tibial Knee Fixed Lm Posterior Stabilized Attune 5mm Size 4 Polyethylene [id number] - [id number] Implanted:Qty: 1 on 12/11/2022 by Hussein Zarate MD at [facility] Other - see comments Left: Knee [employer] 09/24/2030 [id number] / / [id number] Procedures Procedure Name Priority Date/Time Associated Diagnosis Comments EGFR Routine 11/19/2022 12:05 PM PROFESSOR OF FINE ART Primary osteoarthritis of left knee HEMOGLOBIN A1C Routine 11/19/2022 12:05 PM PROFESSOR OF FINE ART Primary osteoarthritis of left knee from Last 3 Months or Most Recently Relevant to Health Maintenance Results * eGFR (11/19/2022 12:05 PM PROFESSOR OF FINE ART) eGFR 77 mL/min/1. 73 m2 ARNOLD SIMPSON [...] of Race in Diagnosing Kidney Disease, JASN 2020). The CKD-EPI equation should not be used for patients with unstable renal function and has not been validated in children and those over 70. Current interpretive data was last reviewed 2021. Blood 11/19/2022 12:0 5 PM PROFESSOR OF FINE ART 11/19/2022 12:25 PM PROFESSOR OF FINE ART Hsusein Zarate MD LAB BLOOD ORDERABLES Corin l Result Performing Organization Address [facility] de Phone Number [facility] [address] [address] [place] [address] * (ABNORMAL) Hemoglobin A1c (11/19/2022 12:05 PM PROFESSOR OF FINE ART) Hgb A1C 5.8(H) 4.0 - 5.6 % [facility] Estimated Average Glucose 120 mg/dL [facility] Comment: The ADA recommends reporting an estimated Average Glucose (eAG) with all Hemoglobin A1c results using the equation derived from a study of 507 normal and diabetic adults. Minority populations were underrepresented and children were not included. (Diabetes Care 31:5071-1968, 2008). The eAG is not equivalent to a fasting glucose. Blood 11/19/2022 12:0 5 PM PROFESSOR OF FINE ART 11/19/2022 12:25 PM PROFESSOR OF FINE ART Hussein Zarate MD LAB BLOOD ORDERABLES Corin l Result Performing Organization Address [facility] Phone Number [facility] [address] [employer] [facility] [place] [address] from Last 3 Months or Most Recently Relevant to Health Maintenance Insurance MEDICARE COMMERCIAL GENERIC COMMERCIAL GENERIC [place] [employer] [place]URANCE [place] Advance Directives For more information, please contact: [phone] * Full Code (Latest Code Status on File) Date Activated Date Inactivated Comments 12/11/2022 2:36 PM 12/12/2022 3:07 PM * Full Code Date Activated Date Inactivated Comments 09/29/2019 9:24 AM 09/29/2019 3:02 PM * Full Code Date Activated Date Inactivated Comments 09/29/2019 9:24 AM 09/29/2019 9:24 AM Care Teams Field Support Rep Relationship Specialty Start Date End Date Arian Menard MD [address] [place] [address] PCP - General Family Medicine 06/05/21
--- OUTSIDE RECORDS SUMMARY | 2025-05-16 14:23 | XMS_ITS | Encounter Summary ---
Author Organization [facility] Address [address] [place] [address] Care Team Providers Care Medical Legal Investigator Name Role Phone Arian Menard MD Primary Care Provider + Encounter Details Date Type Department Care Team (Late Contact Info) Description 05/11/2025 Telephone [facility] - Dermatology [address] [place] [phone] None, Physician [address] [place] [address] Social History Tobacco Use Types Packs/Day Years Used Date Smoking Tobacco: Never Assessed Comments Unknown Sex and Gender Information Value Date Recorded Sex Assigned at Not on file 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 Pt agreed to new date and time. documented in this encounter Plan of Treatment Upcoming Encounters Date Type Department Care Team (Late Contact Info) Description 06/28/2025 11:00 AM CDT Office Visit [facility] - Dermatology [address] [place] [phone] Franki Lopez MD [address] [place] [address] 3 [place] [phone] documented as of this encounter Visit Diagnoses Not on filedocumented in this encounter Care Teams Medical Legal Investigator Relationship Specialty Start Date End Date Arian Menard MD [address] [address] PCP - General 03/30/18 documented as of this encounter
--- OUTSIDE RECORDS SUMMARY | 2025-05-16 14:23 | XMS_ITS | Data Portability ---
Author Organization [place] [facility] [employer], Main Office Address [address] [place] [address] Care Team Providers Care Casket Liner Name Role Phone ELI BUSTAMANTE Primary Care Provider ELI BUSTAMANTE Referring Provider [phone] Assessment Encounter Date Assessment Date Assessment LastModified [...] Empty Can test, Negative Drop Arm, Negative Mitchell s Test Motor: 5/5 strength in all other planes. Sensation: Upper extremity sensation intact. Imaging: Xray reviewed. Preserved joint space. Subacromial sclerosis Assessment & Plan: Ordered physical therapy Prescribed Tramadol as needed for pain. No refills were given. Patient is aware that this rx will not have any refills and also to be careful as this medication can cause dizziness. Ice or heat for pain. Advised to [...] schedule apt for L shoulder. Thanks 2023 024 [email or web address] [facility], [address], [place], [address], 11:06:38 Procedures None recorded. Surgeries None recorded. Imaging XR, shoulder, 2 or more view 2023 [email or web address] [facility], [address], [place], [address], 11:06:38 Medication Orders tramadol 50 mg tablet 2023 [id number], [address], [place], [id number], 11:12:08 Patient TargetsNo targets recorded. Patient InstructionsNo [...] XR, knee No observ ation record ed. [id number] [facility] [address], [place], [address], 12/24/2022 20:08:56 09/26/20 24 XR, shoul bird, 2 or more view No observ ation record ed. laci [facility] [address], [place], [address], 09/26/2024 11:09:59 Result Notes None recorded. Problems Name Problem SNOMED Code Status Onset Date Resolution Date Notes Provider Name and Address Organization Details Recorded Time Arthritis of left knee 4093932229089 104 Active 2020 Not Available [facility] 3 20:07:34 Arthritis of right knee 8366010619823 102 Active 2020 Not Available [facility] 3 20:07:34 Bilateral osteoarthr itis of knees 9780011819018 07 Active 2021 Not Available [facility] 3 20:07:34 Pain of bilateral knee joints 9953866854814 04 Active 2021 Not Available [facility] 3 20:07:34 Osteoarthr itis 625510919 Active 2021 Not Available [facility] 3 20:07:34 Pain of left shoulder joint 7049446014146 9109 Active 2023 INESSA Mckeon, [place] - [facility] 4 10:19:51 Notes:Some problems listed i n Document: #[id number] could not be added to this patient's chart. Please review this document and add these problems to the patient's chart manually as needed. Problem Notes None recorded. Procedures Surgical History Date Name Laterality Status Provider Name and Address Organization Details Recorded Time Back Surgery completed Not Available [facility] 12/24/2022 20:06:42 Gallbladder Surgery completed Not Available [facility] 12/24/2022 20:06:42 Imaging Results None recorded. Procedure Notes None recorded. Medical Equipment None [...] administe red by the provider 09/21 completed [facility]: 0003- 0494- 20 Not Available Not Available [...] administe red by the provider 09/21 completed [facility]: 0409- 4276- 17 Not Available Not Available [...] Available Not Available Not Available Fluzone High-Dose 6271-6220 (PF) 180 mcg/0.5 mL intramuscul ar syringe [...] Updated DateTime 12/31/2021 23.1 kg/m2 154.94 cm 33205.27 g Not Available [facility] 12/24/2022 20:07:17 Date Recorded Body mass index (BMI) Body height Body weight Provider Name and Address Organization Details Last Updated DateTime 05/06/2022 23.6 kg/m2 154.94 cm 37664.05 g Not Available [facility] 12/24/2022 20:07:17 Date Recorded Body mass index (BMI) Body height Body weight Provider Name and Address Organization Details Last Updated DateTime 06/25/2021 23.6 kg/m2 154.94 cm 52000.05 g Not Available [facility] 12/24/2022 20:07:17 Date Recorded Body mass index (BMI) Body height Body weight Provider Name and Address Organization Details Last Updated DateTime 08/06/2021 22.7 kg/m2 154.94 cm 25867.08 g Not Available [facility] 12/24/2022 20:07:17 Date Recorded Body height Body mass index (BMI) Body weight Provider Name and Address Organization Details Last Updated DateTime 09/26/2024 157.48 cm 21 kg/m2 47711.12 g INESSA Mckeon [place] [facility] 09/26/2024 10:17:32 Social History Question Answer Notes LastModified by Organizat ion Details LastModified Time Tobacco Smoking Status Never Smoker Not Available [facility] 12/24/2022 20:06:39 What Was The Date Of Your Most Recent Tobacco Screening? 09/26/2024 [email or web address] Information not available 09/26/2024 Sex: Unknown Functional Status Question Answer Note LastModified by Organization D etails LastModified Time What is your level of alcohol consumption? None [email or web address] Information not available 09/26/2024 Mental Status None recorded. Family History Relationship Description Onset Age of this Age Resolved Age Notes LastModified by Organization Details LastModified Time Father Heart disease [email or web address] [id number] Not available 12/24/2022 20:06:42 Father Family history of stroke [id number] Not available 12/24/2022 20:06:43 Unspecified Relation Family history of malignant neoplasm grandp arents [email or web address] [id number] Not available 12/24/2022 20:06:43 Unspecified Relation Hypertensive disorder [id number] [id number] Not available 12/24/2022 20:06:43 Medical History Condition Response ARTHRITIS Y DIABETES, TYPE Y HEART DISEASE/HEART PROBLEMS Y HEART ARRHYTHMIA Y HYPERTENSION Y CANCER: SPECIFY Y ANEMIA/BLOOD DISORDER Y USE OF NSAIDS Y Gynecological HistoryNo gynecological history recorded. Obstetrics History GPAL:G 0 P 0 0 0 0 Past Encounters Encounter ID Performer Location Encounter Start Date Encounter Closed Date Diagnosis/Indication Diagnosis SNOMED-CT Code Diagnosis ICD10 Code Diagnosis Note [id number] MD ONIEL Bear_Davide [address] [address] 06/25/2021 00:00:00 06/25/2021 10:53:04 [id number] MD JOE Bear [address] [address] 08/06/2021 00:00:00 08/06/2021 10:57:19 [id number] MD JOE Bear [address] [address] 12/31/2021 00:00:00 12/31/2021 10:32:55 [id number] MD JOE Bear [address] [address] 05/06/2022 00:00:00 05/06/2022 11:59:56 [id number] MD JOE Aguilera [address] [address] 09/26/2024 10:01:42 09/26/2024 10:50:30 Pain of left shoulder joint 5224711327 9968834 M25.512 Health Concerns Section Related Observation LastModified by Organization Detai ls LastModified Time None Recorded Concern Status LastModified by Organization Details LastModified Time None Recorded Advance Directives Directive None Recorded Payers Insurance Date Sequence Insurance Name Policy Number Policy [place] Covered Member ID [place] Member ID Guarantor Name 09/26/2024 1 [place] Evelyn Hatfield [id number] Evelyn Rousseau Alysia 09/26/2024 2 Climateminder Evelyn Hatfield [id number] Evelyn Hatfield Notes Date Note Type Note [...] change in bowel/bladder habits;swelling;wa rmth;grinding Not Available [employer] 06/25/2021 10:53:04 08/06/2021 text/html KneeReported bypatient.Location :bilateral [...] change in bowel/bladder habits;swelling;wa rmth;grinding Not Available [employer] 08/06/2021 10:57:19 OBGyn Episode No OBEpisode recorded.
--- OUTSIDE RECORDS SUMMARY | 2025-05-16 14:23 | XMS_ITS | Continuity of Care Document ---
Author Organization [facility] Address [address] [facility] [address] [place] [address] Phone Care Team Providers Care Eye Physician Name Role Phone Gerard Sullivan Unavailable Unavailable [...] Copied on Encounter [facility], [id number] [place] [address] [address], [place], [place], [id number], [place] tel:[phone] [facility] No Information Oct-0 4-201 0 Laurie Gee. [address] [facility] [address] , [address], [place], [address], [place]. tel:[phone] [facility], [address], [place], [place], [id number], [place] tel:[phone] [facility] [place] No Information Isacc-0 9-200 9 Krishnasamy James. [facility], [place], [place], [facility], [place]. tel:[phone] Office/outpat ient Visit, [facility], [address], [place], [place], [id number], [place] tel:[phone] [facility] [place] No Information Nov-1 7-200 8 Krishnasamy James. [facility] [address], [place], [place], [facility], [place]. tel:[phone] Office/outpat ient Visit, [facility], [address] [place] [address] [address], [place], [place], [id number], [place] tel:[phone] [facility] [place] No Information Oct-2 0-200 8 Krishnasamy James. [address] [place] [address] [address], [place], [place], [facility], [place]. tel:[phone] [facility], [address], [place], [place], [id number], [place] tel:[phone] [facility] [place] No Information Oct-1 0-200 8 Krishnasamy James. [address] [place] [address] [address], [place], [facility], [place]. tel:[phone] [facility], [address] [place] [address] [address], [place], [place], [id number], [place] tel:[phone] [facility] [place] No Information Oct-0 6-200 8 Doisy Edward. [address] [place] [address] Dr, [address], [place], [facility], [place]. tel:[phone] Office/outpat ient Visit, [facility], [address], [place], [place], [id number], [place] tel:[phone] [facility] No Information Oct-0 4-200 8 Mireles OD Elvis. [facility] , [address], [place], [facility], [place]. tel:[phone] Office/outpat ient Visit, [facility], [address] [place] [address] [address], [place], [place], [address], [place] tel:[phone] [facility] No Information Oct-0 2-200 8 Penn Indu. [address] [place], [place] [address]ate Center , [address], [place], [facility], [place]. tel:[phone] Office/outpat ient Visit, [facility], [address] [place] [address] [address], [place], [place], [address], [place] tel:[phone] [facility] [place] No Information Sep-1 6-200 8 Krishnasamy James. [facility] [address], [place], [facility], [place]. tel:[phone] [facility], [address] [place] [address] [address], [place], [place], [id number], [place] tel:[phone] [facility] [place] No Information Sep-0 8-200 8 Laurie Gee. [address] [place], [place] [address]ate [address] , [address], [place], [facility], [place]. tel:[phone] Referring Provider: Gerard Rousseau, [address] [place], [place] [address]ate Center [address], [place], [facility]. tel:[phone] [facility], [address] [place] [address] [address], [place], [place], [id number], [place] tel:[phone] [facility] No Information Mar-1 8-200 8 Laurie Gee. [address] [place], [place] [address]ate Center , [address], [place], [facility], [place]. tel:[phone] Referring Provider: Gerard Rousseau [address] [facility] [address], [place], [address]. tel:[phone] [facility], [address], [place], [place], [id number], [place] tel:[phone] [facility] No Information Sep- 0-200 7 Laurie Gee. [address] [facility] , [address], [place], [address], [place]. tel:[phone] Family History Family Member Type Diagnosis Age At Onset No Information Payers Payer name Insurance type Covered republican ID Authoriza tion(s) Medicare ID [id number] Social History Type Description Quantity Date Captured [...]
[2025-05-16 14:33] LABS: Hematocrit 34.8 % (37.0-47.0); Hemoglobin 11.5 g/dL (12.0-15.0); Immature Granulocyte Percent A 0.2 % (0-0.5); Lymphocytes Absolute Auto 1.40 K/mm3 (0.9-3.2); Mean Corpuscular HGB Conc 33.0 g/dl (32-36); Mean Corpuscular Hemoglobin 31.7 pg (26-34); Mean Corpuscular Volume 95.9 fl (80-100); Nucleated Red Blood Cells Absolute Auto 0.000 K/mm3 (0.0-0.012); Nucleated Red Blood Cells Perc 0.0 % (0.0-0.2); Platelet Count Result 280 k/mm3 (150-375); Red Blood Count 3.63 M/mm3 (4.2-5.4); White Blood Count 8.1 K/mm3 (4.5-10.0)
[2025-05-16 16:52] LABS: Anion Gap 9 mmol/L (4-12); Blood Urea Nitrogen 26 mg/dL (7-17); Calcium 9.6 mg/dL (8.4-10.2); Carbon Dioxide 26 mmol/L (22-30); Chloride 103 mmol/L (98-107); Estimated Glomerular Filt Rate 56; Glucose 190 mg/dL (65-110); Potassium 4.4 mmol/L (3.4-5.0); Sodium 138 mmol/L (137-145)
[2025-05-16 17:03] LABS: Iron 116 ug/dL (37-170)
[2025-05-16 17:12] LABS: Percent Iron Saturation 42 % (20-50)
[2025-05-16 17:39] LABS: Ferritin 17.00 ng/mL (11.1-264)
[2025-05-16 18:03] LABS: Vitamin B12 704.0 pg/mL (239-931)
== END 2025-05-16 14:18 | disposition home or self-care (01) ==
PROVIDERS: PCP Nurse Practitioner Family; Visit Provider Internal Medicine Hematology & Oncology
DX: D64.9 Anemia, unspecified (principal)
CPT/HCPCS: 36415; 80048; 82607; 82728; 82746; 83540; 83550; 85025

== ENCOUNTER 2025-07-20 12:55 | Outpatient (CLI) | payer MEDICARE, SELFPAY ==
--- OUTSIDE RECORDS SUMMARY | 2010-07-29 08:45 | XMS_ITS | Continuity of Care Document ---
Author Organization [facility] Address [address] [address] [place] [address] Phone Care Team Providers Care Book Editor Name Role Phone Gerard Sullivan Unavailable Unavailable Procedures Procedure Date Eye Exam & Treatment Refraction Eye Exam & Treatment No Script Refraction Office/outpatient Visit, Est Optic Nerve Head Eval Office/outpatient Visit, Est Eye Exam Established Pt Eye Exam Established Pt Office/outpatient Visit, Est Jul- Office/outpatient Visit, Est Jul- Office/outpatient Visit, Est Eye Exam Established Pt Optic Nerve Head Eval Corneal Pachymetry Visual Field Examination(s) Eye Exam & Treatment Refraction Advance Directives Directive Yes / No Effective Date File Name No Information Encounters Encounter Description Practice Location Reason(s) For Visit Diagnoses Date Provider Providers Copied on Encounter [facility], [id number] [place] [address] [address], [place], [place], [id number], [place] tel:[phone] SEC [facility] No Information Oct-0 4-201 0 Laurie Gee. [address] [facility] [address] , [address], [place], [address], [place]. tel:[phone] [facility], [address], [place], [place], [id number], [place] tel:[phone] [facility] No Information Isacc-0 9-200 9 Krishnasamy James. [facility] [address], [place], [place], [facility], [place]. tel:[phone] Office/outpat ient Visit, [facility], [address], [place], [place], [id number], [place] tel:[phone] [facility] No Information Nov-1 7-200 8 Krishnasamy James. [facility] [address], [place], [place], [facility], [place]. tel:[phone] Office/outpat ient Visit, [facility], [address] [place] [address] [address], [place], [place], [id number], [place] tel:[phone] [facility] No Information Oct-2 0-200 8 Krishnasamy James. [address] [place] [address] [address], [place], [place], [facility], [place]. tel:[phone] [facility], [address], [place], [place], [id number], [place] tel:[phone] [facility] No Information Oct-1 0-200 8 Krishnasamy James. [address] [place] [address] [address], [place], [place], [facility], [place]. tel:[phone] [facility], [address] [place] [address] [address], [place], [place], [id number], [place] tel:[phone] [facility] No Information Oct-0 6-200 8 Doisy Edward. [address] [place] [address] Dr, [address], [place], [place], [facility], [place]. tel:[phone] Office/outpat ient Visit, [facility], [address], [place], [place], [id number], [place] tel:[phone] [facility] No Information Oct-0 4-200 8 Mireles OD Elvis. [facility] , [address], [place], [place], [facility], [place]. tel:[phone] [facility]pat ient [facility], [facility], [address] [place] [address] [address], [place], [place], [id number], [place] tel:[phone] [facility] No Information Oct-0 2-200 8 Penn Indu. [address] [place], [place] [address] [address] , [address], [place], [place], [facility], [place]. tel:[phone] Office/outpat ient Visit, [facility], [address] [place] [address] [address], [place], [place], [id number], [place] tel:[phone] [facility] No Information Sep-1 6-200 8 Krishnasamy James. [facility] [address], [place], [facility], [place]. tel:[phone] [facility], [address] [place] [address] [address], [place], [place], [id number], [place] tel:[phone] [facility] No Information Sep-0 8-200 8 Laurie Gee. [address] [place], [place] [address] , [address], [place], [place], [facility], [place]. tel:[phone] Referring Provider: Gerard Rousseau, [address] [place], [place] [address] [address], [place], [place], [facility]. tel:[phone] [facility], [address] [place] [address] [address], [place], [place], [id number], [place] tel:[phone] [facility] No Information Mar-1 8-200 8 Laurie Gee. [address] [place], [place] [address]ate [address] , [address], [place], [facility], [place]. tel:[phone] Referring Provider: Gerard Rousseau [address] [facility], [place], [address]. tel:[phone] [facility], [address], [place], [place], [id number], [place] tel:[phone] [facility] No Information Sep- 0-200 7 Laurie Gee. [address] [facility] , [address], [place], [address], [place]. tel:[phone] Family History Family Member Type Diagnosis Age At Onset No Information Payers Payer name Insurance type Covered constitution party ID Authoriza tion(s) Medicare PR CI [id number] Social History Type Description Quantity Date Captured Comments Sex Female Smoking Status No Information Chief Complaint And Reason For Visit No Information Reason For Referral Reason For Referral No Information History Of Present Illness Encounter Date Complaint History Of Prese nt Illness No Information Functional Status Date Functional Assessmen t No Information Instructions Date Instruction Additional Infor mation No Information Assessments Type Assessment Date No Information Patient Care Teams Name Effective Dates (start - stop) Status Members No Information
[2025-07-20 13:15] LABS: Hematocrit 37.3 % (37.0-47.0); Hemoglobin 12.1 g/dL (12.0-15.0); Immature Granulocyte Percent A 0.4 % (0-0.5); Lymphocytes Absolute Auto 1.26 K/mm3 (0.9-3.2); Mean Corpuscular HGB Conc 32.4 g/dl (32-36); Mean Corpuscular Hemoglobin 30.6 pg (26-34); Mean Corpuscular Volume 94.2 fl (80-100); Nucleated Red Blood Cells Absolute Auto 0.000 K/mm3 (0.0-0.012); Nucleated Red Blood Cells Perc 0.0 % (0.0-0.2); Platelet Count Result 270 k/mm3 (150-375); Red Blood Count 3.96 M/mm3 (4.2-5.4); White Blood Count 8.5 K/mm3 (4.5-10.0)
--- OUTSIDE RECORDS SUMMARY | 2025-07-20 15:31 | XMS_ITS | Encounter Summary ---
Author Organization [facility] Address [address] [place] [address] Care Team Providers Care Director Of User Experience Name Role Phone Arian Menard MD Primary Care Provider + Encounter Details Date Type Department Care Team (Late st Contact Info) Description 06/29/2025 Results Follow-Up [facility] - Dermatology [address] [place] [phone] Franki Lopez MD [address] [place] [address] [place] [phone] Social History Tobacco Use Types Packs/Day Years Used Date Smoking Tobacco: Never Assessed Comments Unknown Sex and Gender Information Value Date Recorded Sex Assigned at Not on file 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 Derm[facility] [address] [place] [phone] Franki Lopez MD [address] [place] [address] [place] [id number] 12/27/2025 11:00 AM MASTER CARPENTER Office Visit [facility] - Dermatology [address] [place] [phone] rFanki Lopez MD [address] [facility] [address] [place] [address] documented as of this encounter Visit Diagnoses Not on filedocumented in this encounter Care Teams Director Of User Experience Relationship Specialty Start Date End Date Arian Menard MD [address] [address] PCP - General 03/30/18 documented as of this encounter
--- OUTSIDE RECORDS SUMMARY | 2025-07-20 15:31 | XMS_ITS | Encounter Summary ---
Author Organization [facility] Address [address] [place] [address] Care Team Providers Care Pocket Operator Name Role Phone Arian Menard MD Primary Care Provider [phone] Reason for Visit * Reason Onset Date Comments Fatigue 07/20/2025 Encounter Details Date Type Department Care Team (Late st Contact Info) Description 07/20/2025 Telephone [facility] Oncology and Hematology - Nadir [address] [email or web address] [address] [place] [address] Jhonatan Pang MD [address] [facility] [address] [place] [address] Fatigue Social History Tobacco Use Types Packs/Day Years [...] encounter Miscellaneous Notes * Telephone Encounter - Susan Tripathi - 07/20/2025 11:18 AM CDT Patient called because she is not having a lot of energy. She is always tired. She is not having any other side effects. I will order labs for her to complete. She verbalized understanding. Once I get the results I will talk with Dr. Cormier and then give her a call back. documented in this encounter Plan of Treatment Upcoming Encounters Date Type Department Care Team (Late st Contact Info) Description 11/22/2025 1:00 PM PREVENTION COORDINATOR Office Visit [facility] Oncology and Hematology - [place] [address] [facility] [[email or web address] [address] [place] [phone] Jhonatan Pang MD [address] [facility] [address] [place] [address] Scheduled Orders Name Type Priority Associated Diagnoses Orde r Schedule BASIC METABOLIC PANEL Lab Routine Iron deficiency anemia secondary to inadequate dietary iron intake Expected: 07/20/2025, Expires: 07/20/2026 CBC WITH DIFFERENTIAL Lab Routine Iron deficiency anemia secondary to inadequate dietary iron intake Expected: 07/20/2025, Expires: 07/20/2026 IRON, TIBC, AND PERCENT SATURATION Lab Routine Iron deficiency anemia secondary to inadequate dietary iron intake Expected: 07/20/2025, Expires: 07/20/2026 FERRITIN Lab Routine Iron deficiency anemia secondary to inadequate dietary iron intake Expected: 07/20/2025, Expires: 07/20/2026 VITAMIN B12 AND FOLATE Lab Routine Iron deficiency anemia secondary to inadequate dietary iron intake Expected: 07/20/2025, Expires: 07/20/2026 documented as of this encounter Visit Diagnoses Diagnosis Iron deficiency anemia secondary to inadequate dietary iron intake- Primary documented in this encounter Care Teams Pocket Operator Relationship Specialty Start Date End Date Arian Menard MD PCP - General Family Practice 08/14/21 documented as of this encounter
--- OUTSIDE RECORDS SUMMARY | 2025-07-20 15:31 | XMS_ITS | Clinical Summary ---
Author Organization [facility] Address [address] [place] [address] Care Team Providers Care Cap And Hat Production Supervisor Name Role Phone Arian Menard MD Primary Care Provider + Source Comments [facility],non-owned Affiliates and Associated Physician Practices is amultiple site organization consisting of ambulatory clinics and hospital sitesin [place], [place], [place] and [place]. This disclosure is being madepursuant to the Care Everywhere program and may not contain all information available regarding this patient. Last updated 18.[facility] Allergies No known active allergies Medications * Be aware that medications may not be up to date on this document. Alwaysverify current medications with the patient. amLODIPine (Norvasc) 5 MG tablet Take 1 (one) tablet by mouth once daily Active atorvastatin (Lipitor) 40 MG tablet Take 1 (one) tablet by mouth once daily 4 Active benazepril (Lotensin) 20 MG tablet Take [...] 1 (one) tablet by mouth once daily 4 Active FREESTYLE LITE STRIPS test strip USE TO CHECK BLOOD GLUCOSE ONCE DAILY Active oxyBUTYnin CR 24hr (Ditropan-XL) 10 MG tablet Take 1 (one) tablet by mouth once daily Active pantoprazole EC (Protonix) 40 MG tablet Take 1 (one) tablet by mouth every morning Active sertraline (Zoloft) 50 MG tablet Take 1 (one) tablet by mouth once daily Active digoxin (Lanoxin) 0.125 MG tablet Take 1 (one) tablet by mouth once daily Active donepezil (Aricept) 10 MG tablet Take 1 (one) tablet by mouth once daily Active metFORMIN (Glucophage) 500 MG tablet Take 1 (one) tablet by mouth once daily 06/28/20 Discontinu ed(List Clean-Up) cephalexin (Keflex) 500 MG capsuleIndicati ons:History of basal cell carcinoma (BCC) of skin Take 4 pills (2g) at one time 30-60 minutes prior to Mohs surgery 12 capsule 4 06/28/20 Discontinu ed(List Clean-Up) traMADol (Ultram) 50 MG tablet Take 1 tablet every 6-8 hours by oral route as needed. 4 06/28/20 Discontinu ed(List Clean-Up) Active Problems No known active problems Encounters Date Type Department Care Team Description 06/29/2025 Results Follow-Up [facility] Derm[facility] [address] [place] [phone] Franki Lopez MD 06/28/2025 11:00 AM CDT Office Visit [facility] - Dermatology [address] [place] [phone] Franki Lopez MD Multiple benign melanocytic nevi of both upper extremities, both lower extremities, and trunk (Primary Dx); Neoplasm of unspecified behavior of bone, soft tissue, and skin; Hx of nonmelanoma skin cancer; Seborrheic keratoses; Lentigines; Alves angioma 06/28/2025 Travel 05/11/2025 Telephone [facility] - Dermatology [address] [place] [phone] None, Physician from Last 3 Months Social History Tobacco Use Types Packs/Day Years Used Date Smoking Tobacco: Never Assessed Comments Unknown Sex and Gender Information Value Date Recorded Sex Assigned at Not on file Legal Sex Female 6:31 AM SENIOR DATA MINING ANALYST Gender Identity Not on file Sexual Orientation Not on file Plan of Treatment Upcoming Encounters Date Type Department Care Team (Late st Contact Info) Description 08/03/2025 1:00 PM CDT Procedure visit [facility] Derm[facility]ology [address] [place] [phone] Franki Lopez MD [address] [place] [address] [place] [phone] 12/27/2025 11:00 AM SENIOR DATA MINING ANALYST Office Visit [facility] Dermatology [address] [place] [phone] Franki Lopez MD [address] [place] [address] [place] [address] Health Maintenance Due Date Last Done Comments BONE DENSITY TESTING 1945 MEDICARE AWV 12 MONTHS 1945 DTAP/TDAP/TD VACCINES (1 - Tdap) 1962 PNEUMOCOCCAL VACCINE 50+ (1 of 1 - PCV) 1993 ZOSTER VACCINE (1 of 2) 1993 Respiratory Syncytial Virus (RSV) Vaccine Pt: or over 60 yrs (1 - 1-dose 75+ series) 2018 DEPRESSION SCREENING 10/26/2024 COVID-19 VACCINE ( season) 2025 02/13/2024, 03/17/2023, 08/06/2022, Additional history exists INFLUENZA VACCINE (#1) 2025 9, 07/18/2018, 07/18/2017, Additional history exists HEPATITIS B VACCINE Aged Out No longe r eligible based on patient's age to complete this topic HIB VACCINE Aged Out No longer eligi ble based on patient's age to complete this topic HPV VACCINE Aged Out No longer eligi ble based on patient's age to complete this topic MENINGOCOCCAL (Group B) VACCINE SHARED DECISION-MAKING Aged Out No longer eligible based on patient's age to complete this topic MENINGOCOCCAL GROUPS A/C/Y/W VACCINE Aged Out No longer eligible based on patient's age to complete this topic Procedures Procedure Name Priority Date/Time Associated Diagnosis Comments NM TANGNTL BX SKIN EA SEP ADDL Routine 06/28/2025 11:13 AM CDT Neoplasm of unspecified behavior of bone, soft tissue, and skin NM TANGNTL BX SKIN SINGLE LES Routine 06/28/2025 11:13 AM CDT Neoplasm of unspecified behavior of bone, soft tissue, and skin DERMATOPATHOLOGY Routine 06/28/2025 11:0 8 AM CDT Neoplasm of unspecified behavior of bone, soft tissue, and skin from Last 3 Months Results * NM TANGNTL BX SKIN SINGLE LES, NM TANGNTL BX SKIN EA SEP ADDL (06/28/2025 11:13 AM CDT) Narrative Franki Lopez MD - 06/28/2025 11:13 AM CDT Franki Lopez MD 06/28/2025 11:15 AM Risks, benefits and alternatives to shave biopsy were discussed with the patient. Verbal consent was obtained. Locations: left trapezius, right anterior shoulder Skin prep: Alcohol Anesthesia: 1% lidocaine with epinephrine Hemostasis: Aluminum chloride Dressing and wound care discussed. Specimen(s) placed in a patient labeled container and sent to dermatopathology. Patient agrees to phone call for results and message if not available. Delroy Arceo MD [facility] Dermatology Resident Franki Lopez MD PROCEDURE/MINOR SURGICAL ORDER THIEN Final Result * DERMATOPATHOLOGY (Specimen Count = 2) (06/28/2025 11:08 AM CDT) Case Report Dermatopathology Report Case: [id number] Authorizing Provider: Franki Lopez MD Collected: 06/28/2025 11:08 AM Ordering Location: [facility] - Received: 06/28/2025 11:12 AM Dermatology Pathologist: Geraldine Orta MD Specimens: A) - Skin, left trapezius B) - Skin, right anterior shoulder 2:03 PM CDT DERMATOPATHOLOGY LABORATORY Final Diagnosis Specimen A. SKIN, left trapezius: BASAL CELL CARCINOMA, NODULAR TYPE (C44.519) Specimen B. SKIN, right anterior shoulder: BASAL CELL CARCINOMA, SUPERFICIAL MULTIFOCAL (C44.612) 2:03 PM CDT DERMATOPATHOLOGY LABORATORY at 1403 CDT Clinical History A: BCC vs Other B: SCCIS vs LPLK vs Other 2:03 PM CDT DERMATOPATHOLOGY LABORATORY Gross Description Specimen A: Received is one formalin filled container labeled with the patient's name and designated left trapezius. The specimen consists of a shave biopsy measuring 6x5x1 mm. Jar 0. Specimen B: Received is one formalin filled container labeled with the patient's name and designated right anterior shoulder. The specimen consists of a shave biopsy measuring 8x5x1 mm. Jar 0. 2:03 PM CDT DERMATOPATHOLOGY LABORATORY Microscopic Description Specimen A. SKIN, left trapezius: Within the dermis there are aggregates of basaloid cells with a high nuclear to cytoplasmic ratio and peripheral palisading. Specimen B. SKIN, right anterior shoulder: Attached to the undersurface of the epidermis, there are small aggregates of basaloid cells with a high nuclear to cytoplasmic ratio and peripheral palisading. 2:03 PM CDT DERMATOPATHOLOGY LABORATORY Disclaimer An external and internal positive and negative controls are appropriate for the histochemical, immunohistochemical and immunofluorescence stain(s) in this case (if any), except where stated explicitly. The performance characteristics of the stain(s) cited in this report were developed and its performance characteristic determined by the Dermatopathology Laboratory at [facility], directed by Dr. Uche Fishman. These tests need not be, and therefore are not, approved by the [place] Food and Drug Administration. The tests are used for clinical purposes. Billing Codes Specimen Charges Stain Charges 66049 09747 1 1 2:03 PM CDT DERMATOPATHOLOGY LABORATORY Embedded Images 2:03 PM CDT DERMATOPATHOLOGY LABORATORY Pathology/Cytology TISSUE SPECIMEN FROM SKIN / Unknown Collection / Unknown 06/28/2025 11:08 AM CDT 06/28/2025 11:12 AM CDT Comment:Franki Lopez MD Miscellaneous samples (specimen) TISSUE SPECIMEN FROM SKIN / Unknown 06/28/2025 11:08 AM CDT 06/28/2025 11:12 AM CDT Comment:Franki Lopez MD Franki Lopez MD LAB - PATHOLOGY/CYTOLOGY ORDER THIEN Final Result DERMATOPATHOLOGY LABORATORY [facility] Department of Dermatology [address], [address] [phone] from Last 3 Months Insurance MEDICARE MEDICARE SUPPLEMENT PAYOR GENERIC * Guarantor: EVELYN GARCIA Account Type Relation to Patient Date of Phone Billing Address Personal/Family [address] [place] [address] MEDICARE SUPPLEMENT PAYOR GENERIC * Guarantor: EVELYN GARCIA Account Type Relation to Patient Date of Phone Billing Address Personal/Family [address] [place] [address] MEDICARE SUPPLEMENT PAYOR GENERIC Care Teams Cap And Hat Production Supervisor Relationship Specialty Start Date End Date Arian Menard MD [address] [address] PCP - General 03/30/18
--- OUTSIDE RECORDS SUMMARY | 2025-07-20 15:31 | XMS_ITS | Clinical Summary ---
Author Organization [facility] Address [address] [place] [address] Care Team Providers Care Parcel Carrier Name Role Phone Arian Menard MD Primary Care Provider [phone] Allergies No known active allergies Medications amLODIPine (NORVASC) 5 mg tablet Take 5 mg by mouth daily. Active benazepriL (LOTENSIN) 20 mg tablet every 24 hours. Acti ve digoxin (LANOXIN) 125 mcg (0.125 mg) tablet Take 125 mcg by mouth daily. 9 Active fluticasone propionate (FLONASE) 50 mcg/spray [place], Suspension nasal inhaler Administer 1 [place] in each nostril. Active meloxicam (MOBIC) 15 [...] ferrous gluconate 324 mg (38 mg iron) tabletIndicatio ns:Iron deficiency anemia secondary to inadequate dietary iron intake TAKE 1 TABLET BY MOUTH TWICE DAILY 60 Tablet 5 5 Active Active Problems Problem Noted Date Diagnosed Date Iron deficiency anemia 08/27/2021 Arthritis of left knee 06/25/2021 Nausea and vomiting 08/31/2019 Overview (08/14/2021): Added automatically from request for surgery [id number] Encounters Date Type Department Care Team Description 07/20/2025 Telephone [facility] Oncology and Hematology [facility] [address] [place] [address] Jhonatan Pang MD Fatigue 06/27/2025 External Device Data STL ABSTRACTION Provider, Abstract 06/14/2025 External Device Data STL ABSTRACTION Provider, Abstract 06/08/2025 Refill [facility] Oncology and Hematology - [facility] [address] [place] [address] Jhonatan Pang MD Iron deficiency anemia secondary to inadequate dietary iron intake (Primary Dx) 05/31/2025 External Device Data STL ABSTRACTION Provider, Abstract 05/19/2025 10:00 AM CDT Office Visit [facility] Oncology and Hematology [facility] [address] [place] [address] Jhonatan Pang MD Chronic anemia (Primary Dx) 05/18/2025 Orders Only [facility] Oncology and Hematology - [place] [address] [place] [address] Jhonatan Pang MD 05/17/2025 Orders Only [facility] Oncology and Hematology - [place] [address] [place] [address] Jhonatan Pang MD 05/10/2025 External Device Data STL ABSTRACTION Provider, [...] Sign Reading Time Taken Comments Blood Pressure 105/64 05/19/2025 9:44 AM CDT Pulse 89 05/19/2025 9:44 AM CDT Temperature 36.8 C (98.2 F) 05/19/2025 9:44 AM CDT Respiratory Rate 16 05/19/2025 9:44 AM CDT Oxygen Saturation 93% 05/19/2025 9:44 AM CDT Inhaled Oxygen Concentration - - Weight 54 kg (119 lb) 05/19/2025 9:44 AM CDT Height 157.5 cm (5' 2) 04/14/2024 3:33 PM CDT Body Mass Index 21.77 04/14/2024 3:33 PM CDT Plan of Treatment Upcoming Encounters Date Type Department Care Team (Late st Contact Info) Description 11/22/2025 1:00 PM SPORTS MANAGER Office Visit [facility] Oncology and Hematology [facility] [address] [facility] [address] [place] [address] Jhonatan Pang MD [address] [facility] [address] [place] [address] Health Maintenance Due Date Last [...] ) (1 - 1-dose 75+ series) 2018 INFLUENZA VACCINE (#1) 2025 DIABETES ANNUAL RETINAL EXAM 07/08/2025, 03/17/2023, 02/25/2022, Additional history exists DIABETES HBA1C Q 6 MONTHS 09/17/20252024, 09/07/2023, 11/19/2022, Additional history exists COLORECTAL SCREENING Discontinued 07/05/2019, 07/05/20 19 Colorectal Cancer Screening Discontinued FIT-DNA Q 3 years Discontinued FIT/FOBT Q 1 year Discontinued Flex Sig/CT Colonography Q 5 years Discontinued Procedures Procedure Name Priority Date/Time Associated Diagnosis Comments CBC WITH DIFFERENTIAL Routine 05/16/2025 4:42 PM CDT BASIC METABOLIC PANEL Routine 05/16/2025 4:24 PM CDT BASIC METABOLIC PANEL Routine 05/16/2025 11:42 AM CDT from Last 3 Months Results * CBC WITH DIFFERENTIAL (05/16/2025 4:42 PM CDT) Blood us Jhonatan Pang MD HEMATOLOGY ORDERABLES Final Res ult * BASIC METABOLIC PANEL (05/16/2025 4:24 PM CDT) Only the most recent of2 resultswithin the time period is included. Blood us Jhonatan Pang MD CHEMISTRY ORDERABLES Final Resu lt from Last 3 Months Insurance MEDICARE PART A AND B [facility] MEDICARE PART A AND B [facility] Care Teams Parcel Carrier Relationship Specialty Start Date End Date Arian Menard MD PCP - General Family Practice 08/14/21
--- OUTSIDE RECORDS SUMMARY | 2025-07-20 15:31 | XMS_ITS | Encounter Summary ---
Author Organization [facility] Address [address] [facility] [place] [address] Care Team Providers Care Sack Department Supervisor Name Role Phone Arian Menard MD Primary Care Provider + Encounter Details Date Type Department Care Team (Late Contact Info) Description 05/11/2025 Telephone [facility] - Dermatology [address] [place] [phone] None, Physician [address] [place] [address] Social History Tobacco Use Types Packs/Day Years Used Date Smoking Tobacco: Never Assessed Comments Unknown Sex and Gender Information Value Date Recorded Sex Assigned at Not on file Legal Sex Female 6:31 AM ENGINE OILER Gender Identity Not on file Sexual Orientation [...] Procedure visit [facility] - Dermatology [address] [place] [phone] Franki Lopez MD [address] [place] [address] [address] [place] [phone] 12/27/2025 11:00 AM ENGINE OILER Office Visit [facility] - Dermatology [address] [facility] [place] [phone] Franki Lopez MD [address] [facility] 3 [place] [phone] documented as of this encounter Visit Diagnoses Not on filedocumented in this encounter Care Teams Sack Department Supervisor Relationship Specialty Start Date End Date Arian Menard MD [address] [address] PCP - General 03/30/18 documented as of this encounter
--- OUTSIDE RECORDS SUMMARY | 2025-07-20 15:31 | XMS_ITS | Clinical Summary ---
Author Organization [facility] Address [address] [place] [address] Care Team Providers Care Gear Setter Name Role Phone Arian Menard MD Primary [...] (08/12/2022): Added automatically from request for surgery [id number] Left upper quadrant pain 08/31/2019 Overview (08/31/2019): Added automatically from request for surgery [id number] Nausea and vomiting 08/31/2019 Overview (08/31/2019): Added automatically from request for surgery [id number] Abnormal weight loss 08/31/2019 Overview (08/31/2019): Added automatically from request for surgery [id number] Positive occult stool blood test 05/24/2019 Overview (05/24/2019): Added automatically from request for surgery [id number] Surgical History Surgery Date Site/Laterality Comments COLONOSCOPY 06/02/2013 BACK SURGERY 10/26/2005 - 10/25/2006 CHOLECYSTECTOMY 10/26/2010 - 10/25/2011 UPPER GASTROINTESTINAL ENDOSCOPY ESOPHAGEAL DILATION x2 CATARACT EXTRACTION VEIN LIGATION AND STRIPPING 10/26/1989 - 10/25/1990 Left Medical History Medical History Date Comments Hx Other Medical 2011 gallbladder; Co mments: [facility] 11/21/2014 - Hypertension Atrial fibrillation (HCC) Hyperlipidemia Type 2 diabetes mellitus Kidney stone Jensen esophagus Osteoarthritis Family History [...] on file Legal Sex Female 7:18 PM PROPOSAL LEAD WRITER Gender Identity Not on file Sexual Orientation Not on file Obstetrics History Last Filed Vital Signs Vital Sign Reading Time Taken Comments Blood Pressure 145/71 12/12/2022 8:10 AM PROPOSAL LEAD WRITER Pulse 75 12/12/2022 8:10 AM PROPOSAL LEAD WRITER Temperature 36.3 C (97.4 F) 12/12/2022 8:10 AM PROPOSAL LEAD WRITER Respiratory Rate 16 12/12/2022 8:10 AM PROPOSAL LEAD WRITER Oxygen Saturation 98% 12/12/2022 8:10 AM PROPOSAL LEAD WRITER Inhaled Oxygen Concentration - - Weight 51.6 kg (113 lb 12.8 oz) 12/11/2022 9:36 AM PROPOSAL LEAD WRITER Height 157.5 cm (5' 2) 12/11/2022 9:36 AM PROPOSAL LEAD WRITER Body Mass Index 20.81 12/11/2022 9:36 AM PROPOSAL LEAD WRITER Plan of Treatment Health Maintenance Due Date Last Done Comments Albumin Creatinine Ratio, Urine 1943 Depression Screening 1943 Osteoporosis Screening-Bone Density Scan 1943 Dilated Eye Exam 1943 Foot Exam 1943 Lipid Panel 1943 Hepatitis B Screening 1961 Well Visit 65+ 01/28/2008 Pneumococcal vaccine 65+ (2 of 2 - PPSV23, PCV20, or PCV21) 10/04/2014 08/09/2014 DTaP/Tdap/Td Vaccine (2 - Td or Tdap) 08/17/2022 08/17/2012 Hemoglobin A1C 05/19/2023 11/19/2022 eGFR 11/19/2023 11/19/2022 Fall Risk Assessment 12/12/2023 12/12/2022 Influenza Vaccine (#1) 2025 , 07/16/2019, 07/18/2018, Additional history exists Zoster Vaccine Completed 07/16/2019, 05/05/2019 Medical Devices Implanted Type Area Derrick Helper Device Identifier Shelf Expiration Date Model / Serial / Lot [employer] Smartset Medium Viscosity Cement 40gm Bone Sterile 3122-040 - Sna - [id number] Implanted:Qty: 1 on 12/11/2022 by Hussein Zarate MD at [facility] Bone Cement Left: Knee [employer] 05/25/2024 3122-040 / NA / [id number] [employer] Smartset Medium Viscosity Cement 40gm Bone Gentamicin [id number] - Sna - [id number] Implanted:Qty: 1 on 12/11/2022 by Hussein Zarate MD at [facility] Bone Cement Left: Knee [employer] 04/24/2024 [id number] / NA / [id number] [employer] Attune S+ Cement Fix Bearing Knee 4 Baseplate Tibial [id number] - [id number] Implanted:Qty: 1 on 12/11/2022 by Hussein Zarate MD at [facility] Other - see comments Left: Knee [employer] [id number] 08/25/2032 [id number] / / [id number] [employer] Attune Cemented Cruciate Retaining Knee Left 4 Component Femoral [id number] - [id number] Implanted:Qty: 1 on 12/11/2022 by Hussein Zarate MD at [facility] Other - see comments Left: Knee [employer] 09/24/2031 [id number] / / [id number] [employer] Insert Tibial Knee Fixed Lm Posterior Stabilized Attune 5mm Size 4 Polyethylene [id number] - [id number] Implanted:Qty: 1 on 12/11/2022 by Hussein Zarate MD at [facility] Other - see comments Left: Knee [employer] 09/24/2030 [id number] / / [id number] Procedures Procedure Name Priority Date/Time Associated Diagnosis Comments EGFR Routine 11/19/2022 12:05 PM PROPOSAL LEAD WRITER Primary osteoarthritis of left knee HEMOGLOBIN A1C Routine 11/19/2022 12:05 PM PROPOSAL LEAD WRITER Primary osteoarthritis of left knee from Last 3 Months or Most Recently Relevant to Health Maintenance Results * eGFR (11/19/2022 12:05 PM PROPOSAL LEAD WRITER) Pathologist [facility] eGFR 77 mL/min/1. 73 m2 [facility] [...] reviewed 2021. Blood 11/19/2022 12:0 5 PM PROPOSAL LEAD WRITER 11/19/2022 12:25 PM PROPOSAL LEAD WRITER us Hussein Zarate MD LAB BLOOD ORDERABLES Corin roach Result [facility] [address] [facility] [employer] [place] [address] [phone] * (ABNORMAL) Hemoglobin A1c (11/19/2022 12:05 PM PROPOSAL LEAD WRITER) Hgb A1C 5.8(H) 4.0 - 5.6 % [facility] Estimated Average Glucose 120 mg/dL [facility] Comment: The ADA recommends reporting an estimated Average Glucose (eAG) with all Hemoglobin A1c results using the equation derived from a study of 507 normal and diabetic adults. Minority populations were underrepresented and children were not included. (Diabetes Care 31:9478-1399, 2007). The eAG is not equivalent to a fasting glucose. Blood 11/19/2022 12:0 5 PM PROPOSAL LEAD WRITER 11/19/2022 12:25 PM PROPOSAL LEAD WRITER Hussein Zarate MD LAB BLOOD ORDERABLES Corin roach Result Performing Organization Address City/State/ZIP Co wa Phone Number [facility] [address] [facility]. Department [place] [address] from Last 3 Months or Most Recently Relevant to Health Maintenance Insurance MEDICARE COMMERCIAL GENERIC COMMERCIAL GENERIC MEDICARE [employer] [place] Advance Directives For more information, please contact: [phone] * Full Code (Latest Code Status on File) Date Activated Date Inactivated Comments 12/11/2022 2:36 PM 12/12/2022 3:07 PM * Full Code Date Activated Date Inactivated Comments 09/29/2019 9:24 AM 09/29/2019 3:02 PM * Full Code Date Activated Date Inactivated Comments 09/29/2019 9:24 AM 09/29/2019 9:24 AM Care Teams Gear Setter Relationship Specialty Start Date End Date Arian Menard MD PCP - General Family Medicine 06/05/21
[2025-07-20 16:30] LABS: Anion Gap 8 mmol/L (4-12); Blood Urea Nitrogen 27 mg/dL (7-17); Calcium 9.6 mg/dL (8.4-10.2); Carbon Dioxide 30 mmol/L (22-30); Chloride 101 mmol/L (98-107); Estimated Glomerular Filt Rate 55; Glucose 162 mg/dL (65-110); Iron 74 ug/dL (37-170); Potassium 4.4 mmol/L (3.4-5.0); Sodium 139 mmol/L (137-145)
[2025-07-20 16:42] LABS: Percent Iron Saturation 28 % (20-50)
[2025-07-20 17:07] LABS: Ferritin 19.50 ng/mL (11.1-264)
[2025-07-20 17:42] LABS: Vitamin B12 982.0 pg/mL (239-931)
== END 2025-07-20 12:56 | disposition home or self-care (01) ==
PROVIDERS: PCP Nurse Practitioner Family; Visit Provider Internal Medicine Hematology & Oncology
DX: D50.8 Other iron deficiency anemias (principal)
CPT/HCPCS: 36415; 80048; 82607; 82728; 82746; 83540; 83550; 85025